=== PATIENT | female | born 1950 | race Caucasian/White ===

== ENCOUNTER → 2016-09-02 | Outpatient (CLI) | payer MEDICARE, OTHER ==
[2016-09-02 14:00] LABS: BASOPHILS % (AUTO) 0 % (0-2); EOSINOPHILS # (AUTO) 0.1 10^3uL; EOSINOPHILS % (AUTO) 1 % (0-4); LYMPHOCYTES # (AUTO) 1.5 X10^3; MEAN CORPUSCULAR HEMOGLOBIN 29.9 PG (26.0-34.0); MEAN CORPUSCULAR HGB CONC 32.6 g/dL (31.0-37.0); MEAN CORPUSCULAR VOLUME 92 FL (80-100); MEAN PLATELET VOLUME 9.1 FL (6.0-9.5); MONOCYTES # (AUTO) 1.4 X10^3; MONOCYTES % (AUTO) 9 % (3-11); NEUTROPHILS # (AUTO) 13.2 X10^3; NEUTROPHILS % (AUTO) 81 % (51-67); PLATELET COUNT 244 10^3uL (150-450)
[2016-09-02 14:32] LABS: ALBUMIN 3.7 g/dL (3.4-5.0); ANION GAP 14.7 MEQ/L (3-15); TOTAL PROTEIN 7.9 g/dL (6.4-8.5)
[2016-09-02 20:04] LABS: IRON 10 ug/dL (50-170); UNBOUND IRON CONTENT 189 ug/dl (126-382)
== END ==
LOC: LAB 13:50
PROVIDERS: ATTEND Internal Medicine Hematology & Oncology
DX: D64.9 Anemia, unspecified (principal)
CPT/HCPCS: 36415; 80053; 82728; 83540; 83550; 85025

== ENCOUNTER → 2016-09-09 | Outpatient (CLI) | payer MEDICARE, OTHER ==
[2016-09-09 09:51] LABS: MEAN CORPUSCULAR HEMOGLOBIN 29.9 PG (26.0-34.0); MEAN CORPUSCULAR HGB CONC 32.5 g/dL (31.0-37.0); MEAN PLATELET VOLUME 9.3 FL (6.0-9.5); WHITE BLOOD COUNT 8.73 10^3uL (4.0-11.0)
[2016-09-09 10:14] LABS: ANION GAP 16.3 MEQ/L (3-15)
[2016-09-09 10:15] LABS: ALBUMIN 3.5 g/dL (3.4-5.0); CALCULATED IONIZED CALCIUM 4.1 mg/dL (3.8-4.6); TOTAL PROTEIN 7.3 g/dL (6.4-8.5)
== END ==
LOC: LAB 09:13
PROVIDERS: ATTEND Urology
DX: R39.89 Other symptoms and signs involving the genitourinary system (principal); E07.9 Disorder of thyroid, unspecified
CPT/HCPCS: 36415; 80053; 84436; 84443; 85027

== ENCOUNTER 2016-09-13 07:25 | Day surgery (SDC) | payer MEDICARE, OTHER ==
[2016-09-13] VITALS (10 sets, daily range): BP systolic 115–141; BP diastolic 49–74
[~2016-09-13] VITALS: Ht 157.5 cm; Wt 97.0 kg
[~2016-09-13 07:25] MED LIST: LACTATED RINGERS 1,000 ML IV SCH; SODIUM CHLORIDE FLUSH 3 ML SYR IV PRN
[2016-09-13] MEDS ORDERED: PROPOFOL 20 ML IV ONE (08:46)
[2016-09-13] MEDS ORDERED: ALFENTANIL 500 MCG/ML (ALFENTA) 5 ML AMP IV ONE ×2 (08:46)
[2016-09-13] MEDS ORDERED: MIDAZOLAM 2 MG/2 ML (VERSED) VIAL ONE (08:47)
== END 2016-09-13 12:29 | disposition home or self-care (01) ==
LOC: ASC 07:25
PROVIDERS: ATTEND Surgery
DX: N32.1 Vesicointestinal fistula (principal); K57.30 Diverticulosis of large intestine without perforation or abscess without bleeding; G47.30 Sleep apnea, unspecified; I10 Essential (primary) hypertension; E66.9 Obesity, unspecified; Z68.39 Body mass index [BMI] 39.0-39.9, adult
CPT/HCPCS: 45380; 88305; J2250; J7120

== ENCOUNTER → 2016-10-09 | Outpatient (CLI) | payer MEDICARE, OTHER ==
[~2016-10-09] MED LIST changes: +ALEN70TA2 PO; +ALLO300T2 PO; +BUDE10.2 IH; +CALC-444 PO; +CARV12.52 PO; +CHOL10002 PO; +CHOL3000 PO; +CPR500T PO; +GLUC-113 PO; +HYDR-707 PO; -LACTATED RINGERS 1,000 ML IV SCH; +LEVO50TA6 PO; +LISI1TAB8 PO; +LOSA100T8 PO; +METR500T PO; +MULT-301 PO; +OM-31CAP9 PO; -SODIUM CHLORIDE FLUSH 3 ML SYR IV PRN
== END ==
LOC: LAB 09:55
PROVIDERS: ATTEND Surgery
DX: Z53.8 Procedure and treatment not carried out for other reasons (principal)
CPT/HCPCS: 86850; 86900; 86901

== ENCOUNTER 2016-10-10 08:11 | Inpatient (IN) | payer MEDICARE, OTHER ==
[2016-10-10] VITALS (8 sets, daily range): BP systolic 121–152; BP diastolic 44–82
[~2016-10-10] VITALS: Ht 157.5 cm; Wt 108.2 kg
[~2016-10-10 08:11] MED LIST changes: -CHOL10002 PO; +LACTATED RINGERS 1,000 ML IV SCH; -LEVO50TA6 PO; -MULT-301 PO; +SODIUM CHLORIDE FLUSH 3 ML SYR IV PRN; +ceFAZolin 2,000 MG in WATER (STERILE) FOR INJECTION 20 ML IV SCH
[2016-10-10] MEDS ORDERED: LEVO50TA6 PO (08:37)
[2016-10-10] MEDS ORDERED: ALFENTANIL 500 MCG/ML (ALFENTA) 5 ML AMP IV ONE (08:54)
[2016-10-10] MEDS ORDERED: ROCURONIUM 50 MG/5 ML (ZEMURON) VIAL IV ONE ×2 (08:54→11:20)
[2016-10-10] MEDS ORDERED: PROPOFOL 20 ML IV ONE (08:54)
[2016-10-10] MEDS ORDERED: MIDAZOLAM 2 MG/2 ML (VERSED) VIAL ONE (09:00)
[2016-10-10] MEDS ORDERED: ROPIVACAINE 1% 10 MG/ML (NAROPIN) 20 ML AMPUL ONE (09:44)
[2016-10-10] MEDS ORDERED: SUFENTANIL 50 MCG/ML ONE ×2 (09:45)
[2016-10-10] MEDS ORDERED: ePHEDrine SULFATE 50 MG/ML 1 ML AMP ONE ×2 (10:20→17:07)
[2016-10-10] MEDS ORDERED: PHENYLEPHRINE 10 MG/ML (NEO-SYNEPHRINE 1%) 1 ML VIAL ONE (10:34)
[2016-10-10 10:49] LABS: BILIRUBIN,URINE Negative (Negative); COLOR,URINE Other; GLUCOSE, URINE (UA) Negative (Negative); LEUKOCYTE ESTERASE, URINE 3+ (Negative); UROBILINOGEN,URINE 0.2 mg/dL (0.2-1.0)
[2016-10-10 11:00] LABS: CLARITY,URINE Slightly Cloudy; URINE CENTRIFUGED VOLUME 12 mL
[2016-10-10] MEDS ORDERED: METHYLENE BLUE 1% 10 MG/ML 10 ML VIAL ONE (12:46)
[2016-10-10] MEDS ORDERED: GLYCOPYRROLATE 0.2 MG/ML (ROBINUL) 1 ML VIAL ONE (16:30)
[2016-10-10] MEDS ORDERED: NEOSTIGMINE 1 MG/ML SYRINGE ONE (16:30)
--- NOTE | 2016-10-10 17:47 | Diagnostic Imaging Report ---
INDICATION: Postop. Evaluate for foreign body. COMPARISON: None available. FINDINGS AND IMPRESSION: Left-sided nephroureteral stent is in place. There are surgical alejandro along the lower abdomen. No additional radiopaque foreign body is identified to suggest retained suture material. Please note that most suture material is not radiopaque. Dictated by: Dictated on workstation # [id number]
[2016-10-10] MEDS ORDERED: ONDANSETRON 2 MG/ML (Z0FRAN) 2 ML VIAL IV PRN (17:50)
[2016-10-10] MEDS ORDERED: METOCLOPRAMIDE 10 MG/2 ML (REGLAN) VIAL IV PRN (17:50)
[2016-10-10] MEDS: 1/2 NS W/KCL 20 MEQ/L 1,000 ML IV SCH (18:50)
[2016-10-10] MEDS ORDERED: FLUTICASONE/SALMETEROL HFA 230/21 MCG (ADVAIR) COMMON CANNISTER INH SCH (21:00)
[2016-10-10] MEDS: CARVEDILOL 12.5 MG (COREG) TABLET PO SCH (21:53)
[2016-10-11] VITALS (17 sets, daily range): BP systolic 108–167; BP diastolic 38–87
[2016-10-11 04:53] LABS: BASOPHILS % (AUTO) 0 % (0-2); EOSINOPHILS % (AUTO) 0 % (0-4); LYMPHOCYTES # (AUTO) 1.1 X10^3; MEAN CORPUSCULAR HEMOGLOBIN 29.9 PG (26.0-34.0); MEAN CORPUSCULAR HGB CONC 32.3 g/dL (31.0-37.0); MEAN CORPUSCULAR VOLUME 93 FL (80-100); MEAN PLATELET VOLUME 9.5 FL (6.0-9.5); MONOCYTES # (AUTO) 1.2 X10^3; MONOCYTES % (AUTO) 4 % (3-11); NEUTROPHILS % (AUTO) 92 % (51-67); PLATELET COUNT 204 10^3uL (150-450); WHITE BLOOD COUNT 28.39 10^3uL (4.0-11.0)
[2016-10-11] MEDS: 1/2 NS W/KCL 20 MEQ/L 1,000 ML IV SCH ×2 (05:01→15:46)
[2016-10-11 05:49] LABS: ANION GAP 15.4 MEQ/L (3-15)
[2016-10-11 05:59] LABS: BAND NEUTROPHILS % 24 % (0-6); EOSINOPHILS % 0 % (0-4); LYMPHOCYTES # 0.6 #; MONOCYTES # 0.6 #; MONOCYTES % 2 % (3-11); RBC MORPH NORMAL (NORMAL); SEGMENTED NEUTROPHILS % 72 % (51-67); TOTAL CELLS COUNTED 100
[2016-10-11] MEDS ORDERED: ROPIVACAINE 1% 10 MG/ML (NAROPIN) 20 ML AMPUL ONE (07:06)
--- NOTE | 2016-10-11 09:00 | Progress Note-A/P (E) ---
Progress Note Subjective Subjective She had some pain through the night and this has improved with adjustments to the epidural catheter by anesthesia. She has no complaints this morning. She is awake and sitting up in bed with her family at the bedside. Objective VS Vital Signs Date Time Temp Pulse Resp B/P Pulse Ox O2 Delivery O2 Flow Rate FiO2 10/11/16 08:00 124 22 114/56 93 Nasal cannula 10/11/16 06:00 98.3 I&O I & O Past 24 hrs 10/11/16 06:59 Intake Total 1138 ml Output Total 270 ml Balance 868 ml Intake IV Total 1138 ml Output Urine Total 245 ml Stool Total 25 ml Current Medications Current Medications Potassium Chloride/Sodium Chloride 1,000 ml @ 50 mls/hr Q20H IV Last administered on 10/11/16 05:01; Admin Dose 50 MLS/HR; Start 10/10/16 at 17:47 Metoclopramide HCl 10 mg Q6H PRN IV; Start 10/10/16 at 17:50 Ondansetron HCl 4 mg Q6H PRN IV Last administered on 10/11/16 00:15; Admin Dose 4 MG; Start 10/10/16 at 17:50 Salmeterol Xinafoate/ Fluticasone 2 inh BID INH; Start 10/10/16 at 21:00 General Awake, alert, oriented, no distress. CV S1S2 with sinus tachyardia Lungs Clear bilaterally Abdomen Outer dressing saturated with serous drainage. This was removed, and robb withdrawn slightly. Stoma is pink with appliance intact. Extremities Mild edema to lower extremities Integumentary No unusual findings Neuro Grossly normal Labs, Most Recent- Laboratory Results Past 24 Hrs 10/10/16 10:35: Urine Bacteria 2+, Urine Bilirubin Negative, Urine Blood 3+, Urine Clarity Slightly cloudy, Urine Collection Type Catheter, Urine Color Other, Urine Glucose (UA) Negative, Urine Ketones Negative, Urine Leukocyte Esterase 3+, Urine Microscopic RBC 10-20, Urine Microscopic WBC >100, Urine Nitrite Negative , Urine Protein Negative, Urine Specific [place] <=1.005, Urine Squamous Epithelial Cells 2-5, Urine Urobilinogen 0.2, Urine pH 6.0, Volume Urine Centrifuged 12 ml 10/10/16 11:19: Hematocrit 29.80, Hemoglobin 9.1 10/11/16 04:43: Hematocrit 32.20, Hemoglobin 10.4, Absolute Band Neutrophils 6.7, Anion Gap 15.4 , BUN/Creatinine Ratio 16, Band Neutrophils % 24, Basophils # (Auto) 0.0, Basophils # (Manual) 0.0, Basophils % (Manual) 0, Basophils (%) (Auto) 0, Blood Morphology Comment Normal, Blood Urea Nitrogen 19, Calcium Level 7.6, Carbon Dioxide Level 20, Chloride Level 108, Creatinine 1.20, Differential Total Cells Counted 100, Eosinophils # 0.0, Eosinophils # (Auto) 0.0, Eosinophils % (Manual ) 0, Eosinophils (%) (Auto) 0, Estimat Glomerular Filtration Rate 54.2, Estimated GFR (Non- 44.8, Glucose Level 122, Lymphocytes # 0.6, Lymphocytes # (Auto) 1.1, Lymphocytes % (Manual) 2, Lymphocytes (%) (Auto) 4, Mean Corpuscular Hemoglobin 29.9, Mean Corpuscular Hemoglobin Concent 32.3, Mean Corpuscular Volume 93, Mean Platelet Volume 9.5, Metamyelocytes % 0, Monocytes # 0.6, Monocytes # (Auto) 1.2, Monocytes % (Manual) 2, Monocytes (%) ( Auto) 4, Neutrophils # 20.4, Neutrophils # (Auto) 26.0, Neutrophils (%) (Auto) 92, Platelet Count 204, Potassium Level 5.0, Red Blood Count 3.48, Red Cell Distribution Width 16.0, Segmented Neutrophils % 72, Sodium Level 138, White Blood Count 28.39 10/11/16 07:40: Ionized Calcium 1.02 24 Hr Result Diagram CBC BMP Last 24 Hrs 10/10/16 11:19 10/11/16 04:43 Assessment POD#1 Sigmoid colectomy, repair of colovesical fistula, and diverting ileostomy Plan Continue ICU care, and monitor vital signs. Tachycardia and elevated WBC likely secondary to cytokine response to surgery and the diseased colon. Will follow. Continue epidural and Quiñones catheter drainage. JOSELYN OLIVARES MD Oct 11, 2016 09:00
[2016-10-11] MEDS: CARVEDILOL 12.5 MG (COREG) TABLET PO SCH ×2 (09:04→17:08)
--- NOTE | 2016-10-11 10:40 | OPERATIVE REPORT ---
DATE OF OPERATION: 10/10/2016 PRE-OPERATIVE DIAGNOSIS: Colovesical fistula. POST-OPERATIVE DIAGNOSIS: Colovesical fistula. OPERATIVE PROCEDURE: Cystoscopy left stent, cystorrhaphy for fistula. SURGEON: Deven Hankins MD COMPLICATIONS: None. SPECIMENS: Bladder wall. BLOOD LOSS: Minimal. PROCEDURE: The patient was brought to the operating room and underwent general anesthesia and was placed in the lithotomy position where she was prepped in the usual fashion. 23-Setswana cystoscope was inserted into the bladder. There is no stone or tumor in the bladder. The fistula site is seen. The wire was advanced up the ureter and over this was then passed a stent. The wire was withdrawn leaving the stent in good position. The position was confirmed by fluoroscopy. A Quiñones catheter was placed. The case was turned over to Dr. Cornell for his portion. The colon was resected and the fistula was uncovered. The bladder was opened to identify the contralateral ureteral orifice and the stent. The bladder was then closed with running segments of Vicryl after excision of the fistulous wall. Irrigation of the bladder was without substantial clots and there was an acceptable amount of leakage. The Quiñones catheter was left indwelling and the patient was turned back over to Dr. Cornell for reanastomosis of the colon and for closure.
--- NOTE | 2016-10-11 11:54 | OPERATIVE REPORT ---
DATE OF OPERATION: 10/10/2016 PRE-OPERATIVE DIAGNOSIS: Colovesical fistula. POST-OPERATIVE DIAGNOSIS: Colovesical fistula. OPERATIVE PROCEDURE: 1. Sigmoid colectomy with colorectal anastomosis. 2. Repair of colovesical fistula. 3. Diverting loop ileostomy. 4. Mobilization of splenic flexure. 5. Incidental appendectomy. SURGEON: David Cornell M.D. FRANKFURTER INSPECTOR: Joe France M.D., Deven Hankins M.D., Kim Cheung. ANESTHESIA: General endotracheal anesthetic. INDICATIONS: This patient is a 65-year-old referred by Dr. Hankins with recurrent urinary tract infections and cystoscopic findings consistent with a colovesical fistula. Colonoscopy revealed inflammatory changes in the sigmoid colon around 20-25 cm, consistent with the fistula opening. She presents today for repair of this fistula, section of the involved colon, and anastomosis if feasible. DESCRIPTION OF PROCEDURE: The patient was informed of the risks and benefits and agreed to proceed. She was taken to the operating room and placed supine on a standard operating table. She was administered preoperative IV antibiotics and then general endotracheal anesthetic. When properly anesthetized she was placed in the dorsal lithotomy position and Dr. Hankins performed a cystoscopy, where he placed a left ureteral stent and inserted a Quiñones catheter to drainage. Once this was accomplished her abdomen was prepped and draped in standard sterile fashion. An infraumbilical midline laparotomy incision was made extending from the pubic symphysis up to the umbilicus, and eventually taken to the right of the umbilicus and extended several centimeters superiorly. Cautery was used to open the midline fascia carefully and the Bookwalter retractor was attached to the bed, and used for retraction throughout the case. Palpation of the distal colon revealed induration and edema in the area where the colon came in contact with the bladder. The proximal colon was normal to palpation as was the liver. The sigmoid colon was densely adherent to the bladder posteriorly, as well as the right side of the pelvis, and the mesorectum and mesocolon was very edematous as well. A combination of sharp and blunt dissection were used to separate the colon from the bladder and this resulted in opening of the fistula, with exposed colon wall as well as a defect in the peritoneum overlying the bladder. On the right side, sharp dissection with a 10-blade scalpel was used to separate the colon from the small bowel, which consisted of the terminal ileum. This resulted in a deep serosal tear that was over-sewn with interrupted 3-0 Vicryl Lembert sutures. The cecum was seen in the right lower quadrant with the appendix densely adherent to the colon. I elected to resect the appendix rather than try to separate it from the colon to which it was densely adherent. It did not appear that she had appendicitis. The appendix was clamped proximally and distally and divided between clamps. It was then tied off with 2 separate 2-0 Vicryl ties. The dissection was carried lateral to the appendix which was attached to the colon and then the colon was from its attachments to the right side of the pelvis in its indurated portion using the 10-blade scalpel as well as the Metzenbaum scissors. This allowed access into the normal plane distal to the diseased colon. We selected a point of transection in the sigmoid colon, several centimeters proximal to the indurated portion, and divided the mesocolic vessel at that level between clamps, using 3-0 and 2-0 Vicryl ties to secure these vessels. The colon was transected with a TACOS 75 stapler. The colon was then retracted anteriorly through the rest of the case until it was removed. The mesocolon was divided between clamps, and in some places because there was so much induration we actually had to cut through it and then over-sew the bleeders with 2-0 or 3-0 Vicryl figure of eight sutures. This provided hemostasis there. The sacral promontory was reached with our dissection and once we entered the posterior space behind the rectum the inflammation was no longer such a problem, and normal planes were able to be seen. We continued to divide the mesorectum between clamps and use 2-0 and 3-0 Vicryl ties as well as sutures to secure these vessels and to stop any bleeding. Once we got past the indurated portion of the mesorectum this was much easier. We selected a point of transection of the rectum several centimeters beyond the diseased portion and placed a clamp across. It was too thick to apply a TA stapler, though I did try. Once the rectum was clamped it was divided with a 10-blade scalpel on a 90 degree handle and the specimen was removed. We irrigated the pelvis and aspirated the contents. Dr. Hankins then came in to repair the bladder, which he performed by extending the fistula opening to identify the normal bladder mucosa. Once this was repaired, we turned our attention to the anastomosis. The descending colon and splenic flexure of the colon were mobilized carefully with sharp dissection using the Metzenbaum scissors to allow enough length for the colon to reach down to the rectal stump. We contemplated a stapled anastomosis but settled on a single layer hand sewn anastomosis due to the condition of the posterior rectal wall and the effects of the inflammation on the mesorectum, which did not appear to affect the blood supply but made it difficult to identify where the serosa was. A single layer anastomosis was created with 2-0 Chromic. The colon was secured with a bowel clamp through that process and the staple line on the colon had been removed with electrocautery prior to creation of the anastomosis. The posterior layer was performed in simple running fashion utilizing locked sutures for most of them, and the anterior layer was closed with [place] sutures. There was a leak on the right lateral side after the clamp was removed, and this was over-sewn with 2 separate 3-0 silk sutures. Because of concern about the potential for a leak in the inflammatory field that we were dealing with, we decided to created a diverting ileostomy. We irrigated the pelvis and aspirated the contents. There was no large pocket of pus noted during the procedure but there was a small amount of pus seen as the colon was from the pelvis and from the bladder earlier in the procedure. We also found some enteric particles or vegetable matter that was removed from the pelvis earlier in the procedure. This had been completely cleared at the end of the case. The anastomosis was pink and appeared viable. Lap sponges were removed. A tongue of omentum was laid between the colon and the bladder and sutured to the peritoneum above the bladder to keep it in place. We then created a skin defect in the right lower quadrant for the ileostomy, bluntly dissected the tunnel, and I made a cruciate incision in the anterior recuts sheath. Blunt dissection was then used to enter the peritoneal cavity. The terminal ileum was brought up just proximal to the area where the serosal tear had been repaired, and this portion of the ileum was used for our ileostomy. This was encircled with umbilical tape and the umbilical tape was pulled up through the fascial defect and into the skin incision exposing the loop of ileum above the skin. The midline fascia was then closed with running #1 PDS and the skin was widely reapproximated with alejandro. Telfa robb were placed between the alejandro and the midline incision was covered with several 4x4s and Tegaderm. The ileostomy was then matured by opening the anterior wall of the distal aspect of the loop and folding it inferiorly to allow the proximal portion of the stoma to drain. 3-0 Vicryl was used to mature the stoma by using mucosa to serosa to dermal bites. The superior aspect of the stoma was matured by sewing the mucosa to the skin and an appliance was placed. A KUB afterward showed no evidence of any lap sponges or any foreign body in the abdomen. Estimated blood loss was approximately 800 mL and the patient received 7100 mL of crystalloid during the procedure. She went to recovery in stable condition and there were no complications.
[2016-10-11] MEDS ORDERED: NS FLUSH 3 ML PRN IV (12:20)
[2016-10-11] MEDS ORDERED: NS FLUSH 10 ML PRN IV (12:20)
[2016-10-11] MEDS: CALCIUM GLUCONATE 1,000 MG in D5W (IVPB) 50 ML IV SCH ×2 (12:35→18:21)
[2016-10-11] MEDS ORDERED: MULT-301 PO (12:54)
[2016-10-11] MEDS ORDERED: CHOL10002 PO (12:54)
[2016-10-11] MEDS ORDERED: METOCLOPRAMIDE 10 MG/2 ML (REGLAN) VIAL IV PRN (12:55)
[2016-10-11] MEDS ORDERED: ONDANSETRON 2 MG/ML (Z0FRAN) 2 ML VIAL IV PRN (12:55)
[2016-10-11] MEDS: FLUTICASONE/SALMETEROL HFA 230/21 MCG (ADVAIR) COMMON CANNISTER INH SCH (20:19)
[2016-10-12] VITALS: BP 122/47
[2016-10-12] MEDS: 1/2 NS W/KCL 20 MEQ/L 1,000 ML IV SCH (02:08)
[2016-10-12 04:00] VITALS: BP 140/54
[2016-10-12 05:42] LABS: MEAN CORPUSCULAR HEMOGLOBIN 29.6 PG (26.0-34.0); MEAN CORPUSCULAR VOLUME 94 FL (80-100); MEAN PLATELET VOLUME 9.4 FL (6.0-9.5); PLATELET COUNT 153 10^3uL (150-450); WHITE BLOOD COUNT 20.19 10^3uL (4.0-11.0)
[2016-10-12 06:13] LABS: MEAN CORPUSCULAR HGB CONC 31.5 g/dL (31.0-37.0)
[2016-10-12 06:16] LABS: ANISOCYTOSIS SLIGHT; BAND NEUTROPHILS % 0 % (0-6); EOSINOPHILS % 1 % (0-4); HYPOCHROMASIA SLIGHT; MONOCYTES % 5 % (3-11); RBC MORPH SEE REFERENCE (NORMAL); SEGMENTED NEUTROPHILS % 89 % (51-67); TOTAL CELLS COUNTED 100
[2016-10-12] MEDS ORDERED: SUFENTANIL 50 MCG/ML ONE ×2 (07:16)
[2016-10-12] MEDS ORDERED: ROPIVACAINE 1% 10 MG/ML (NAROPIN) 20 ML AMPUL ONE (07:16)
[2016-10-12 07:30] VITALS: BP 115/47
[2016-10-12] MEDS: FLUTICASONE/SALMETEROL HFA 230/21 MCG (ADVAIR) COMMON CANNISTER INH SCH ×2 (07:32→20:11)
[2016-10-12] MEDS: CARVEDILOL 12.5 MG (COREG) TABLET PO SCH ×2 (08:38→18:32)
[2016-10-12] MEDS ORDERED: NS FLUSH 3 ML DAILY IV SCH (09:00)
--- NOTE | 2016-10-12 11:47 | Progress Note-A/P (E) ---
Progress Note Subjective Subjective She is doing well. Pain is controlled fairly well with epidural; she has been up walking in the finch and tolerated that. Urine output has been 150cc this morning since 0600. Hemoglobin is down to 8.0 and creatinine is up to 1.7. Bryan is here this morning to change stoma appliance, which had leaked a bit. Objective VS Vital Signs Date Time Temp Pulse Resp B/P Pulse Ox O2 Delivery O2 Flow Rate FiO2 10/12/16 09:15 102 10/12/16 07:30 98.8 20 115/47 99 Nasal cannula 10/11/16 20:13 2.00 I&O I & O Past 24 hrs 10/12/16 07:00 Intake Total 3581 ml Output Total 475 ml Balance 3106 ml Intake Oral 25 ml IV Total 3556 ml Output Urine Total 475 ml Current Medications Current Medications Sodium Chloride 3 ml DAILY IV; Start 10/12/16 at 09:00 Sodium Chloride 3 ml UD PRN IV; Start 10/11/16 at 12:20 Sodium Chloride 10 ml 10 ml UD PRN IV Last administered on 10/12/16 09:24; Admin Dose 10 ML; Start 10/11/16 at 12:20 Potassium Chloride/Sodium Chloride 1,000 ml @ 100 mls/hr Q10H IV Last administered on 10/12/16 02:08; Admin Dose 100 MLS/HR; Start 10/11/16 at 12:55 Metoclopramide HCl 10 mg Q6H PRN IV; Start 10/11/16 at 12:55 Ondansetron HCl 4 mg Q6H PRN IV; Start 10/11/16 at 12:55 Salmeterol Xinafoate/ Fluticasone 2 inh BID INH Last administered on 10/12/16 07 :32; Admin Dose 2 INH; Start 10/11/16 at 21:00 General Awake, alert, oriented, no distress. CV S1S2 with sinus tachyardia Lungs Clear bilaterally Abdomen Outer dressing saturated with serous drainage. This was removed, and robb withdrawn slightly. Stoma is pink with appliance intact. Extremities Mild edema to lower extremities Integumentary No unusual findings Neuro Grossly normal Labs, Most Recent- Laboratory Results Past 24 Hrs 10/12/16 05:05: Absolute Band Neutrophils 0.0, Anion Gap 13.0, Anisocytosis Slight, BUN/ Creatinine Ratio 17, Band Neutrophils % 0, Basophils # (Auto) , Basophils # ( Manual) 0.0, Basophils % (Manual) 0, Basophils (%) (Auto) , Blood Morphology Comment See reference, Blood Urea Nitrogen 29, Calcium Level 7.3, Carbon Dioxide Level 21, Chloride Level 107, Creatinine 1.75, Differential Total Cells Counted 100, Eosinophils # 0.2, Eosinophils # (Auto) , Eosinophils % (Manual) 1 , Eosinophils (%) (Auto) , Estimat Glomerular Filtration Rate 35.1, Estimated GFR (Non- 29.0, Glucose Level 99, Hematocrit 25.40, Hemoglobin 8.0, Hypochromasia Slight, Lymphocytes # 1.0, Lymphocytes # (Auto) , Lymphocytes % (Manual) 5, Lymphocytes (%) (Auto) , Mean Corpuscular Hemoglobin 29.6, Mean Corpuscular Hemoglobin Concent 31.5, Mean Corpuscular Volume 94, Mean Platelet Volume 9.4, Metamyelocytes % 0, Monocytes # 1.0, Monocytes # (Auto ) , Monocytes % (Manual) 5, Monocytes (%) (Auto) , Neutrophils # 18.0, Neutrophils # (Auto) , Neutrophils (%) (Auto) , Platelet Count 153, Potassium Level 5.1, Red Blood Count 2.70, Red Cell Distribution Width 15.6, Segmented Neutrophils % 89, Sodium Level 136, White Blood Count 20.19 24 Hr Result Diagram CBC BMP Last 24 Hrs 10/12/16 05:05 Assessment POD#2 Sigmoid colectomy, repair of colovesical fistula, and diverting ileostomy Plan Transfer to floor. Will recheck hgb and BMP this afternoon. Start clears, no trays. Continue epidural. JOSELYN OLIVARES MD Oct 12, 2016 11:47
[2016-10-12] MEDS ORDERED: 1/2 NS W/KCL 20 MEQ/L 1,000 ML IV SCH (11:50)
[2016-10-12 12:02] VITALS: BP 111/52
[2016-10-12] MEDS ORDERED: SODIUM CHLORIDE FLUSH 10 ML SYR IV PRN (12:20)
[2016-10-12] MEDS ORDERED: SODIUM CHLORIDE FLUSH 3 ML SYR IV PRN (12:20)
[2016-10-12 14:13] VITALS: BP 111/82
[2016-10-12 15:19] LABS: ANION GAP 13.2 MEQ/L (3-15)
[2016-10-12] MEDS ORDERED: LACTATED RINGERS 1,000 ML IV SCH ×3 (17:00→19:05)
[2016-10-12] MEDS: ONDANSETRON 2 MG/ML (Z0FRAN) 2 ML VIAL IV PRN (17:04)
[2016-10-12] MEDS: LACTATED RINGERS 1,000 ML IV SCH ×2 (17:04→19:37)
[2016-10-12 20:00] VITALS: BP 116/48
[2016-10-13] VITALS: BP 114/63
[2016-10-13 03:26] VITALS: BP 126/72
[2016-10-13] MEDS: LACTATED RINGERS 1,000 ML IV SCH ×2 (05:04→18:50)
[2016-10-13 06:06] LABS: MEAN CORPUSCULAR HEMOGLOBIN 29.8 PG (26.0-34.0); MEAN CORPUSCULAR VOLUME 95 FL (80-100); MEAN PLATELET VOLUME 9.7 FL (6.0-9.5); PLATELET COUNT 198 10^3uL (150-450); WHITE BLOOD COUNT 20.43 10^3uL (4.0-11.0)
[2016-10-13 06:12] LABS: MEAN CORPUSCULAR HGB CONC 31.5 g/dL (31.0-37.0)
[2016-10-13 06:16] LABS: ANION GAP 14.7 MEQ/L (3-15)
[2016-10-13 06:19] LABS: ANISOCYTOSIS MODERATE; BAND NEUTROPHILS % 0 % (0-6); EOSINOPHILS % 0 % (0-4); HYPOCHROMASIA SLIGHT; LYMPHOCYTES # 0.6 #; MONOCYTES # 0.8 #; MONOCYTES % 4 % (3-11); RBC MORPH SEE REFERENCE (NORMAL); SEGMENTED NEUTROPHILS % 93 % (51-67); TOTAL CELLS COUNTED 100
[2016-10-13] MEDS: FLUTICASONE/SALMETEROL HFA 230/21 MCG (ADVAIR) COMMON CANNISTER INH SCH ×2 (07:20→19:29)
[2016-10-13 07:25] VITALS: BP 168/72
[2016-10-13] MEDS: METOCLOPRAMIDE 10 MG/2 ML (REGLAN) VIAL IV PRN ×3 (07:38→21:04)
--- NOTE | 2016-10-13 08:27 | Progress Note-A/P (E) ---
Progress Note Subjective Subjective She is standing at bedside, about to go for a walk with aide. Pain mostly controlled, just feels a bit nauseated with oral intake. Urine output has picked up. Urine is yellow, no gross blood. Objective VS Vital Signs Date Time Temp Pulse Resp B/P Pulse Ox O2 Delivery O2 Flow Rate FiO2 10/13/16 07:25 9733.8 93 18 168/72 96 Room air 10/11/16 20:13 2.00 I&O I & O Past 24 hrs 10/13/16 07:00 Intake Total 3697 ml Output Total 905 ml Balance 2792 ml Intake Oral 495 ml IV Total 3202 ml Output Urine Total 890 ml Other 15 ml Current Medications Current Medications Salmeterol Xinafoate/ Fluticasone 2 inh BID INH Last administered on 10/13/16 07 :20; Admin Dose 2 INH; Start 10/12/16 at 21:00 Metoclopramide HCl 10 mg Q6H PRN IV Last administered on 10/13/16 07:38; Admin Dose 10 MG; Start 10/12/16 at 12:55 Ondansetron HCl 4 mg Q6H PRN IV Last administered on 10/12/16 17:04; Admin Dose 4 MG; Start 10/12/16 at 12:55 Sodium Chloride 10 ml UD PRN IV; Start 10/12/16 at 12:20 Sodium Chloride 3 ml UD PRN IV; Start 10/12/16 at 12:20 Sodium Chloride 3 ml 3 ml DAILY IV; Start 10/13/16 at 09:00 Lactated Ringer's 1,000 ml @ 100 mls/hr Q10H IV Last administered on 10/13/16 05:04; Admin Dose 100 MLS/HR; Start 10/12/16 at 16:45 General Awake, alert, oriented, no distress. CV S1S2 RRR Lungs Clear bilaterally Abdomen Outer dressing saturated with serous drainage. This was left intact but will be changed when she gets back from walking. Stoma is pink with appliance intact, small amount of bilious drainage in bag. Extremities Mild edema to lower extremities Integumentary No unusual findings Neuro Grossly normal Labs, Most Recent- Laboratory Results Past 24 Hrs 10/12/16 14:52: Anion Gap 13.2, BUN/Creatinine Ratio 18, Blood Urea Nitrogen 30, Calcium Level 7.6, Carbon Dioxide Level 24, Chloride Level 104, Creatinine 1.65, Estimat Glomerular Filtration Rate 37.5, Estimated GFR (Non- 31.0, Glucose Level 100, Hemoglobin 8.5, Potassium Level 5.5, Sodium Level 136 10/13/16 05:00: Anion Gap 14.7, BUN/Creatinine Ratio 18, Blood Urea Nitrogen 27, Calcium Level 7.6, Carbon Dioxide Level 23, Chloride Level 104, Creatinine 1.51, Estimat Glomerular Filtration Rate 41.6, Estimated GFR (Non- 34.4, Glucose Level 92, Hemoglobin 8.2, Potassium Level 5.2, Sodium Level 136, Absolute Band Neutrophils 0.0, Anisocytosis Moderate, Band Neutrophils % 0, Basophils # (Auto) , Basophils # (Manual) 0.0, Basophils % (Manual) 0, Basophils (%) (Auto) , Blood Morphology Comment See reference, Differential Total Cells Counted 100, Eosinophils # 0.0, Eosinophils # (Auto) , Eosinophils % (Manual) 0, Eosinophils (%) (Auto) , Hematocrit 26.00, Hypochromasia Slight, Lymphocytes # 0.6, Lymphocytes # (Auto) , Lymphocytes % (Manual) 3, Lymphocytes (%) (Auto) , Mean Corpuscular Hemoglobin 29.8, Mean Corpuscular Hemoglobin Concent 31.5, Mean Corpuscular Volume 95, Mean Platelet Volume 9.7, Metamyelocytes % 0, Monocytes # 0.8, Monocytes # (Auto) , Monocytes % (Manual) 4 , Monocytes (%) (Auto) , Neutrophils # 19.0, Neutrophils # (Auto) , Neutrophils (%) (Auto) , Platelet Count 198, Red Blood Count 2.75, Red Cell Distribution Width 15.0, Segmented Neutrophils % 93, White Blood Count 20.43 24 Hr Result Diagram CBC BMP Last 24 Hrs 10/12/16 14:52 10/13/16 05:00 Assessment POD#3 Sigmoid colectomy, repair of colovesical fistula, and diverting ileostomy Mild hypocalcemia Post-op anemia Plan Continue current care, will replace calcium and follow progress. Epidural likely out today or tomorrow. JOSELYN OLIVARES MD Oct 13, 2016 08:27
[2016-10-13] MEDS: SODIUM CHLORIDE FLUSH 3 ML SYR IV SCH (08:59)
[2016-10-13] MEDS: CALCIUM GLUCONATE 1,000 MG in D5W (IVPB) 50 ML IV SCH ×2 (09:19→14:51)
[2016-10-13] MEDS: CARVEDILOL 12.5 MG (COREG) TABLET PO SCH ×2 (09:19→18:20)
[2016-10-13 11:14] VITALS: BP 126/57
[2016-10-13] MEDS: ONDANSETRON 2 MG/ML (Z0FRAN) 2 ML VIAL IV PRN ×2 (11:24→18:20)
[2016-10-13] MEDS ORDERED: NALBUPHINE 10 MG/ML (NUBAIN) 1 ML AMP IV PRN ×2 (14:55)
[2016-10-13] MEDS ORDERED: diphenhydrAMINE 50 MG/ML INJ (BENADRYL) IM/IV PRN (14:55)
[2016-10-13] MEDS ORDERED: NALOXONE 0.4 MG/ML (NARCAN) 1 ML VIAL IV PRN (14:55)
[2016-10-13] MEDS ORDERED: diphenhydrAMINE 25 MG (BENADRYL) TABLET PO PRN (14:55)
[2016-10-13 15:09] VITALS: BP 148/67
[2016-10-13 20:00] VITALS: BP 153/72
[2016-10-14] VITALS (12 sets, daily range): BP systolic 152–181; BP diastolic 62–90
[2016-10-14] MEDS: ONDANSETRON 2 MG/ML (Z0FRAN) 2 ML VIAL IV PRN ×4 (01:27→21:56)
[2016-10-14] MEDS: METOCLOPRAMIDE 10 MG/2 ML (REGLAN) VIAL IV PRN ×3 (04:23→17:27)
[2016-10-14 06:08] LABS: MEAN CORPUSCULAR HGB CONC 31.8 g/dL (31.0-37.0); MEAN CORPUSCULAR VOLUME 94 FL (80-100); MEAN PLATELET VOLUME 9.2 FL (6.0-9.5); PLATELET COUNT 256 10^3uL (150-450); WHITE BLOOD COUNT 18.02 10^3uL (4.0-11.0)
[2016-10-14 06:18] LABS: BAND NEUTROPHILS % 0 % (0-6); EOSINOPHILS % 0 % (0-4); LYMPHOCYTES # 1.1 #; MONOCYTES # 0.2 #; MONOCYTES % 1 % (3-11); SEGMENTED NEUTROPHILS % 93 % (51-67); TOTAL CELLS COUNTED 100
[2016-10-14 06:19] LABS: ANISOCYTOSIS SLIGHT; HYPOCHROMASIA SLIGHT; RBC MORPH SEE REFERENCE (NORMAL)
[2016-10-14 06:30] LABS: ANION GAP 18.8 MEQ/L (3-15)
[2016-10-14] MEDS ORDERED: morphine PCA 30 MG/30 ML VIAL IV PRN ×2 (07:10→07:20)
[2016-10-14] MEDS: FLUTICASONE/SALMETEROL HFA 230/21 MCG (ADVAIR) COMMON CANNISTER INH SCH ×2 (07:46→20:10)
[2016-10-14] MEDS: LACTATED RINGERS 1,000 ML IV SCH ×2 (07:53→21:56)
[2016-10-14] MEDS: CARVEDILOL 12.5 MG (COREG) TABLET PO SCH ×2 (08:43→17:27)
[2016-10-14] MEDS: GABAPENTIN 100 MG (NEURONTIN) CAP PO SCH ×2 (08:43→21:45)
--- NOTE | 2016-10-14 08:45 | Progress Note-A/P (E) ---
Progress Note Subjective Subjective She has had some emesis this morning. Epidural was removed earlier and pain is controlled. No other new issues. Objective VS Vital Signs Date Time Temp Pulse Resp B/P Pulse Ox O2 Delivery O2 Flow Rate FiO2 10/14/16 08:04 103 20 93 Room air 10/14/16 07:41 97.6 155/76 10/14/16 00:00 0.00 I&O I & O Past 24 hrs 10/14/16 07:00 Intake Total 1810 ml Output Total 1155 ml Balance 655 ml Intake Oral 50 ml IV Total 1760 ml Output Urine Total 625 ml Stool Total 30 ml Emesis 500 ml Current Medications Current Medications Salmeterol Xinafoate/ Fluticasone 2 inh BID INH Last administered on 10/14/16 07 :46; Admin Dose 2 INH; Start 10/12/16 at 21:00 Metoclopramide HCl 10 mg Q6H PRN IV Last administered on 10/14/16 04:23; Admin Dose 10 MG; Start 10/12/16 at 12:55 Ondansetron HCl 4 mg Q6H PRN IV Last administered on 10/14/16 07:28; Admin Dose 4 MG; Start 10/12/16 at 12:55 Sodium Chloride 10 ml UD PRN IV; Start 10/12/16 at 12:20 Sodium Chloride 3 ml UD PRN IV; Start 10/12/16 at 12:20 Sodium Chloride 3 ml 3 ml DAILY IV; Start 10/13/16 at 09:00 Lactated Ringer's 1,000 ml @ 70 mls/hr [id number] IV Last administered on 07:53; Admin Dose 70 MLS/HR; Start 10/12/16 at 16:45 Diphenhydramine HCl 50 mg Q3H PRN PO; Start 10/13/16 at 14:55 Diphenhydramine HCl 25-50MG IV or 50MG IM Q3H PRN IM/IV; Start 10/13/16 at 14:55 Nalbuphine HCl 5 mg Q3H PRN IV; Start 10/13/16 at 14:55 Morphine Sulfate 1 vial PRN PRN IV Last administered on 10/14/16 07:56; Admin Dose 1 VIAL; Start 10/14/16 at 07:20 Tramadol HCl 100 mg Q4H PRN PO; Start 10/14/16 at 07:20 Gabapentin 200 mg BID PO; Start 10/14/16 at 09:00 General Awake, alert, oriented, no distress. CV S1S2 RRR Lungs Clear bilaterally at apices Abdomen Dressing saturated with serous drainage; robb removed and dressing replaced. No pus, no enteric drainage, no erythema. Stoma intact, little drainage. Extremities Mild edema to lower extremities Integumentary No unusual findings Neuro Grossly normal Labs, Most Recent- Laboratory Results Past 24 Hrs 10/14/16 05:45: Absolute Band Neutrophils 0.0, Anion Gap 18.8, Anisocytosis Slight, BUN/ Creatinine Ratio 24, Band Neutrophils % 0, Basophils # (Auto) , Basophils # ( Manual) 0.0, Basophils % (Manual) 0, Basophils (%) (Auto) , Blood Morphology Comment See reference, Blood Urea Nitrogen 31, Calcium Level 8.3, Carbon Dioxide Level 21, Chloride Level 102, Creatinine 1.29, Differential Total Cells Counted 100, Eosinophils # 0.0, Eosinophils # (Auto) , Eosinophils % (Manual) 0 , Eosinophils (%) (Auto) , Estimat Glomerular Filtration Rate 49.9, Estimated GFR (Non- 41.2, Glucose Level 107, Hematocrit 26.40, Hemoglobin 8.4, Hypochromasia Slight, Lymphocytes # 1.1, Lymphocytes # (Auto) , Lymphocytes % (Manual) 6, Lymphocytes (%) (Auto) , Mean Corpuscular Hemoglobin 30.0, Mean Corpuscular Hemoglobin Concent 31.8, Mean Corpuscular Volume 94, Mean Platelet Volume 9.2, Metamyelocytes % 0, Monocytes # 0.2, Monocytes # (Auto ) , Monocytes % (Manual) 1, Monocytes (%) (Auto) , Neutrophils # 16.8, Neutrophils # (Auto) , Neutrophils (%) (Auto) , Platelet Count 256, Potassium Level 5.1, Red Blood Count 2.80, Red Cell Distribution Width 14.8, Segmented Neutrophils % 93, Sodium Level 137, White Blood Count 18.02 24 Hr Result Diagram CBC BMP Last 24 Hrs 10/14/16 05:45 Assessment POD#4 Sigmoid colectomy, repair of colovesical fistula, and diverting ileostomy Post-op anemia, stable 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 Continue current care. JOSELYN OLIVARES MD Oct 14, 2016 08:45
[2016-10-14] MEDS: SODIUM CHLORIDE FLUSH 3 ML SYR IV SCH (08:49)
[2016-10-14] MEDS ORDERED: GABAPENTIN 100 MG (NEURONTIN) CAP PO SCH (09:00)
--- NOTE | 2016-10-14 15:38 | Progress Note-A/P (E) ---
Progress Note Subjective: no c/o, tired Objective: I>>Os Vital Signs Date Time Temp Pulse Resp B/P Pulse Ox O2 Delivery O2 Flow Rate FiO2 10/14/16 14:06 97 18 94 Nasal cannula 10/14/16 12:13 97.7 167/70 10/14/16 00:00 0.00 I & O Past 24 hrs 10/14/16 06:59 Intake Total 1810 ml Output Total 1155 ml Balance 655 ml Intake Oral 50 ml IV Total 1760 ml Output Urine Total 625 ml Stool Total 30 ml Emesis 500 ml urine clear Past 24 hour Lab Results 10/14/16 05:45 Laboratory Results Past 24 Hrs 10/14/16 05:45: Absolute Band Neutrophils 0.0, Anion Gap 18.8, Anisocytosis Slight, BUN/ Creatinine Ratio 24, Band Neutrophils % 0, Basophils # (Auto) , Basophils # ( Manual) 0.0, Basophils % (Manual) 0, Basophils (%) (Auto) , Blood Morphology Comment See reference, Blood Urea Nitrogen 31, Calcium Level 8.3, Carbon Dioxide Level 21, Chloride Level 102, Creatinine 1.29, Differential Total Cells Counted 100, Eosinophils # 0.0, Eosinophils # (Auto) , Eosinophils % (Manual) 0 , Eosinophils (%) (Auto) , Estimat Glomerular Filtration Rate 49.9, Estimated GFR (Non- 41.2, Glucose Level 107, Hematocrit 26.40, Hemoglobin 8.4, Hypochromasia Slight, Lymphocytes # 1.1, Lymphocytes # (Auto) , Lymphocytes % (Manual) 6, Lymphocytes (%) (Auto) , Mean Corpuscular Hemoglobin 30.0, Mean Corpuscular Hemoglobin Concent 31.8, Mean Corpuscular Volume 94, Mean Platelet Volume 9.2, Metamyelocytes % 0, Monocytes # 0.2, Monocytes # (Auto ) , Monocytes % (Manual) 1, Monocytes (%) (Auto) , Neutrophils # 16.8, Neutrophils # (Auto) , Neutrophils (%) (Auto) , Platelet Count 256, Potassium Level 5.1, Red Blood Count 2.80, Red Cell Distribution Width 14.8, Segmented Neutrophils % 93, Sodium Level 137, White Blood Count 18.02 Assessment/Plan s/p colovesical fistula repair Diet- Code Status- DVT prophylaxis- Disposition- Deven Hankins MD Oct 14, 2016 15:38
[2016-10-14] MEDS: LOSARTAN 100 MG (COZAAR) TABLET PO SCH (17:27)
[2016-10-14] MEDS ORDERED: FUROSEMIDE 20 MG/2 ML (LASIX) VIAL ONE (21:37)
[2016-10-14] MEDS ORDERED: FUROSEMIDE 20 MG/2 ML (LASIX) VIAL IV ONE (21:45)
[2016-10-15] MEDS: METOCLOPRAMIDE 10 MG/2 ML (REGLAN) VIAL IV PRN ×2 (00:23→12:49)
[2016-10-15 04:06] VITALS: BP 188/76
[2016-10-15] MEDS ORDERED: FUROSEMIDE 20 MG/2 ML (LASIX) VIAL IV ONE ×2 (04:30→15:45)
[2016-10-15] MEDS: ONDANSETRON 2 MG/ML (Z0FRAN) 2 ML VIAL IV PRN ×2 (05:48→14:38)
[2016-10-15 06:52] VITALS: BP 142/78
[2016-10-15] MEDS: FLUTICASONE/SALMETEROL HFA 230/21 MCG (ADVAIR) COMMON CANNISTER INH SCH ×2 (07:47→20:31)
[2016-10-15 07:58] VITALS: BP 177/84
--- NOTE | 2016-10-15 08:14 | Progress Note-A/P (E) ---
Progress Note Subjective Subjective She has had lower spO2 since last night, and was given two doses of Lasix. She had been a bit short of breath but feels that has improved. Nausea last night but not this morning. Objective VS Vital Signs Date Time Temp Pulse Resp B/P Pulse Ox O2 Delivery O2 Flow Rate FiO2 10/15/16 07:58 97.0 110 20 177/84 92 Nasal cannula 10/14/16 00:00 0.00 I&O I & O Past 24 hrs 10/15/16 07:00 Intake Total 2124 ml Output Total 2150 ml Balance -26 ml Intake Oral 437 ml IV Total 1687 ml Output Urine Total 1850 ml Stool Total 0 ml Emesis 300 ml Current Medications Current Medications Sodium Chloride 3 ml DAILY IV; Start 10/13/16 at 09:00 Diphenhydramine HCl 50 mg Q3H PRN PO; Start 10/13/16 at 14:55 Diphenhydramine HCl 25-50MG IV or 50MG IM Q3H PRN IM/IV; Start 10/13/16 at 14:55 Nalbuphine HCl 5 mg Q3H PRN IV; Start 10/13/16 at 14:55 Morphine Sulfate 1 vial PRN PRN IV Last administered on 10/14/16 07:56; Admin Dose 1 VIAL; Start 10/14/16 at 07:20 Tramadol HCl 100 mg Q4H PRN PO; Start 10/14/16 at 07:20 Gabapentin 200 mg BID PO Last administered on 10/14/16 21:45; Admin Dose 200 MG ; Start 10/14/16 at 09:00 Losartan Potassium 100 mg DAILY PO Last administered on 10/14/16 17:27; Admin Dose 100 MG; Start 10/14/16 at 16:50 General Awake, alert, oriented, no distress. CV S1S2 RRR Lungs Diminished at bases with scattered crackles bilaterally Abdomen Dressing dry; incision clean with no erythema. Stoma intact with dry faceplate. 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 Continue current care. Losartan restarted. JOSELYN OLIVARES MD Oct 15, 2016 08:14
[2016-10-15] MEDS: LOSARTAN 100 MG (COZAAR) TABLET PO SCH (09:25)
[2016-10-15] MEDS: CARVEDILOL 12.5 MG (COREG) TABLET PO SCH ×2 (09:25→18:30)
[2016-10-15] MEDS: SODIUM CHLORIDE FLUSH 3 ML SYR IV SCH (09:26)
[2016-10-15] MEDS: GABAPENTIN 100 MG (NEURONTIN) CAP PO SCH (09:26)
[2016-10-15 11:39] VITALS: BP 166/68
[2016-10-15] MEDS: LACTATED RINGERS 1,000 ML IV SCH ×3 (13:10→22:25)
[2016-10-15 15:35] VITALS: BP 173/73
[2016-10-15 18:06] LABS: MEAN CORPUSCULAR HEMOGLOBIN 29.8 PG (26.0-34.0); MEAN CORPUSCULAR HGB CONC 31.8 g/dL (31.0-37.0); MEAN CORPUSCULAR VOLUME 94 FL (80-100); MEAN PLATELET VOLUME 8.7 FL (6.0-9.5); PLATELET COUNT 302 10^3uL (150-450); WHITE BLOOD COUNT 17.64 10^3uL (4.0-11.0)
[2016-10-15 18:19] LABS: BAND NEUTROPHILS % 19 % (0-6); EOSINOPHILS % 0 % (0-4); LYMPHOCYTES # 0.9 #; MONOCYTES # 0.5 #; MONOCYTES % 3 % (3-11); SEGMENTED NEUTROPHILS % 73 % (51-67); TOTAL CELLS COUNTED 100
[2016-10-15 18:20] LABS: ALBUMIN 3.2 g/dL (3.4-5.0); ANION GAP 20.4 MEQ/L (3-15); MAGNESIUM* 1.4 mg/dL (1.6-2.3); RBC MORPH NORMAL (NORMAL); TOTAL PROTEIN 6.8 g/dL (6.4-8.5)
--- NOTE | 2016-10-15 19:09 | Diagnostic Imaging Report ---
INDICATION: Hypoxemia. PA and lateral chest. FINDINGS: There are some patchy alveolar infiltrates at both lung bases that could represent pneumonia. There is no effusion or pneumothorax. Heart size and pulmonary vascularity are normal. IMPRESSION: Small patchy alveolar nodular infiltrates at both lung bases suspicious for pneumonia. Dictated by: Dictated on workstation # [id number]
--- NOTE | 2016-10-15 19:11 | Diagnostic Imaging Report ---
INDICATION: Hypoxia, surgery five days ago. COMPARISON STUDY: KUB from October 10, 2016. FINDINGS: Supine view of the abdomen demonstrates skin alejandro in place and a left ureteral stent in place. Small bowel loops are dilated. There is still gas in the colon. Possible early small bowel obstruction versus ileus. IMPRESSION: Early small bowel obstruction versus ileus. Small bowel obstruction is worrisome as this measures 7 cm. Dictated by: Dictated on workstation # [id number]
[2016-10-15] MEDS ORDERED: MAGNESIUM 2 GM/50 ML IVPB 50 ML IV ONE (19:15)
[2016-10-15] MEDS: ENOXAPARIN 40 MG/0.4 ML (LOVENOX) SYR SC SCH (19:26)
[2016-10-15] MEDS ORDERED: LIDOCAINE 4% TOPICAL 4.5 ML SYR ONE (19:34)
[2016-10-15] MEDS ORDERED: OXYMETAZOLINE 0.05% NASAL SPRAY (AFRIN) 15 ML BTL ONE (19:35)
[2016-10-15 19:48] VITALS: BP 142/83
[2016-10-15] MEDS ORDERED: MAGNESIUM 1 GM/100 ML IVPB 100 ML IV ONE (20:55)
[2016-10-15] MEDS: meTOprolol 5 MG/5 ML (LOPRESSOR) VIAL IV SCH (20:58)
--- NOTE | 2016-10-15 20:59 | Diagnostic Imaging Report ---
INDICATION: NG tube placement. EXAM: KUB FINDINGS: There is an NG tube projecting over the stomach. The bowel gas pattern is unremarkable. IMPRESSION: NG tube projects over the stomach. Dictated by: Dictated on workstation # [id number]
[2016-10-15] MEDS: MAGNESIUM 1 GM/100 ML IVPB 100 ML IV SCH ×2 (21:43→23:00)
[2016-10-16] VITALS (7 sets, daily range): BP systolic 113–161; BP diastolic 59–74
[2016-10-16] MEDS: LACTATED RINGERS 1,000 ML IV SCH (04:13)
[2016-10-16 05:53] LABS: BASOPHILS % (AUTO) 0 % (0-2); EOSINOPHILS # (AUTO) 0.4 10^3uL; EOSINOPHILS % (AUTO) 4 % (0-4); LYMPHOCYTES # (AUTO) 1.5 X10^3; MEAN CORPUSCULAR HEMOGLOBIN 29.5 PG (26.0-34.0); MEAN CORPUSCULAR VOLUME 94 FL (80-100); MEAN PLATELET VOLUME 8.5 FL (6.0-9.5); MONOCYTES # (AUTO) 0.9 X10^3; MONOCYTES % (AUTO) 9 % (3-11); NEUTROPHILS # (AUTO) 7.2 X10^3; NEUTROPHILS % (AUTO) 72 % (51-67); PLATELET COUNT 244 10^3uL (150-450); WHITE BLOOD COUNT 10.04 10^3uL (4.0-11.0)
[2016-10-16] MEDS: meTOprolol 5 MG/5 ML (LOPRESSOR) VIAL IV SCH ×3 (06:02→21:53)
[2016-10-16 06:04] LABS: MEAN CORPUSCULAR HGB CONC 31.4 g/dL (31.0-37.0)
[2016-10-16 06:11] LABS: ANION GAP 17.1 MEQ/L (3-15); MAGNESIUM* 1.9 mg/dL (1.6-2.3)
[2016-10-16] MEDS: FLUTICASONE/SALMETEROL HFA 230/21 MCG (ADVAIR) COMMON CANNISTER INH SCH ×2 (07:25→20:27)
[2016-10-16] MEDS: SODIUM CHLORIDE FLUSH 3 ML SYR IV SCH (08:30)
[2016-10-16] MEDS ORDERED: NS IV 500 ML 500 ML IV SCH (08:35)
[2016-10-16] MEDS ORDERED: NS W/KCL 20 MEQ/L 1,000 ML IV SCH (08:35)
--- NOTE | 2016-10-16 08:35 | Progress Note-A/P (E) ---
Progress Note Subjective Subjective Patient experienced worsening pain, shortness of breath and hypoxia yesterday afternoon. X-ray showed gastric distension and NG tube was placed. This has drained about 2500cc and all clinical parameters have improved. She feels much better. Stoma appliance replaced last night due to leaking. Objective VS Vital Signs Date Time Temp Pulse Resp B/P Pulse Ox O2 Delivery O2 Flow Rate FiO2 10/16/16 07:40 92 Nasal cannula 10/16/16 07:21 97.5 83 24 140/69 10/14/16 00:00 0.00 I&O I & O Past 24 hrs 10/16/16 07:00 Intake Total 1765 ml Output Total 3350 ml Balance -1585 ml Intake Oral 0 ml IV Total 1765 ml Output Urine Total 800 ml Gastric Drainage Total 2550 ml Current Medications Current Medications Losartan Potassium 100 mg DAILY PO Last administered on 10/15/16 09:25; Admin Dose 100 MG; Start 10/14/16 at 16:50; Status Future Hold Enoxaparin Sodium 40 mg Q24HR SC Last administered on 10/15/16 19:26; Admin Dose 40 MG; Start 10/15/16 at 17:50 Metoprolol Tartrate 5 mg 5 mg Q8H IV Last administered on 10/16/16 06:02; Admin Dose 5 MG; Start 10/15/16 at 19:15 Magnesium Sulfate/ Dextrose 100 ml @ 100 mls/hr UD IV Last administered on 23:00; Admin Dose 100 MLS/HR; Start 10/15/16 at 21:35; Stop 10/16/16 at 22:34 General Awake, alert, oriented, no distress. Appears much more comfortable than yesterday afternoon. CV S1S2 RRR Lungs Clear with no wheezing or crackles. Abdomen Scant serous drainage, no pus or erythema. Stoma intact. Extremities Mild edema to lower extremities Integumentary No unusual findings Neuro Grossly normal Labs, Most Recent- Laboratory Results Past 24 Hrs 10/15/16 18:00: Absolute Band Neutrophils 3.2, Alanine Aminotransferase (ALT/SGPT) 27, Albumin 3.2, Albumin/Globulin Ratio 0.888, Alkaline Phosphatase 126, Anion Gap 20.4, Aspartate Amino Transf (AST/SGOT) 20, BUN/Creatinine Ratio 22, Band Neutrophils % 19, Basophils # (Auto) , Basophils # (Manual) 0.0, Basophils % (Manual) 0, Basophils (%) (Auto) , Blood Morphology Comment Normal, Blood Urea Nitrogen 32, Calcium Level 8.9, Calcium/Ionized Calcium Ratio 4.0, Calculated Osmolality 281 , Carbon Dioxide Level 25, Chloride Level 100, Creatinine 1.47, Differential Total Cells Counted 100, Eosinophils # 0.0, Eosinophils # (Auto) , Eosinophils % (Manual) 0, Eosinophils (%) (Auto) , Estimat Glomerular Filtration Rate 42.9, Estimated GFR (Non- 35.5, Glucose Level 130, Hematocrit 28.60, Hemoglobin 9.1, Lipase 66, Lymphocytes # 0.9, Lymphocytes # (Auto) , Lymphocytes % (Manual) 5, Lymphocytes (%) (Auto) , Magnesium Level 1.4, Mean Corpuscular Hemoglobin 29.8, Mean Corpuscular Hemoglobin Concent 31.8, Mean Corpuscular Volume 94, Mean Platelet Volume 8.7, Monocytes # 0.5, Monocytes # ( Auto) , Monocytes % (Manual) 3, Monocytes (%) (Auto) , Neutrophils # 12.9, Neutrophils # (Auto) , Neutrophils (%) (Auto) , Phosphorus Level 3.0, Platelet Count 302, Potassium Level 4.3, Red Blood Count 3.05, Red Cell Distribution Width 14.6, Segmented Neutrophils % 73, Sodium Level 141, Total Bilirubin 1.6, Total Protein 6.8, Troponin I < 0.012, White Blood Count 17.64 10/16/16 05:45: Anion Gap 17.1, BUN/Creatinine Ratio 25, Basophils # (Auto) 0.0, Basophils (%) ( Auto) 0, Blood Urea Nitrogen 38, Calcium Level 8.6, Carbon Dioxide Level 27, Chloride Level 101, Creatinine 1.53, Eosinophils # (Auto) 0.4, Eosinophils (%) ( Auto) 4, Estimat Glomerular Filtration Rate 41.0, Estimated GFR (Non- 33.9, Glucose Level 100, Hematocrit 24.50, Hemoglobin 7.7, Lymphocytes # (Auto) 1.5, Lymphocytes (%) (Auto) 15, Magnesium Level 1.9, Mean Corpuscular Hemoglobin 29.5, Mean Corpuscular Hemoglobin Concent 31.4, Mean Corpuscular Volume 94, Mean Platelet Volume 8.5, Monocytes # (Auto) 0.9, Monocytes (%) (Auto ) 9, Neutrophils # (Auto) 7.2, Neutrophils (%) (Auto) 72, Platelet Count 244, Potassium Level 3.7, Red Blood Count 2.61, Red Cell Distribution Width 14.3, Sodium Level 141, White Blood Count 10.04 24 Hr Result Diagram CBC BMP Last 24 Hrs 10/15/16 18:00 10/16/16 05:45 Assessment POD#6 Sigmoid colectomy, repair of colovesical fistula, and diverting ileostomy Postoperative ileus Plan 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 Will increase fluids to relace gastric losses. JOSELYN OLIVARES MD Oct 16, 2016 08:35
[2016-10-16] MEDS: ENOXAPARIN 40 MG/0.4 ML (LOVENOX) SYR SC SCH (10:44)
[2016-10-16] MEDS: D5 NS W/KCL 20 MEQ/L 1,000 ML IV SCH ×2 (12:05→21:52)
[2016-10-17] VITALS (7 sets, daily range): BP systolic 138–189; BP diastolic 57–72
[2016-10-17] MEDS: meTOprolol 5 MG/5 ML (LOPRESSOR) VIAL IV SCH ×3 (06:10→21:17)
[2016-10-17] MEDS: D5 NS W/KCL 20 MEQ/L 1,000 ML IV SCH ×3 (06:11→23:05)
[2016-10-17 06:21] LABS: BASOPHILS % (AUTO) 0 % (0-2); EOSINOPHILS # (AUTO) 0.3 10^3uL; EOSINOPHILS % (AUTO) 3 % (0-4); LYMPHOCYTES # (AUTO) 1.2 X10^3; MEAN CORPUSCULAR HEMOGLOBIN 29.3 PG (26.0-34.0); MEAN CORPUSCULAR VOLUME 96 FL (80-100); MONOCYTES # (AUTO) 0.9 X10^3; MONOCYTES % (AUTO) 9 % (3-11); NEUTROPHILS # (AUTO) 7.3 X10^3; NEUTROPHILS % (AUTO) 75 % (51-67); PLATELET COUNT 279 10^3uL (150-450); WHITE BLOOD COUNT 9.76 10^3uL (4.0-11.0)
[2016-10-17 06:31] LABS: MEAN CORPUSCULAR HGB CONC 30.7 g/dL (31.0-37.0)
[2016-10-17 06:52] LABS: ANION GAP 14.3 MEQ/L (3-15)
[2016-10-17] MEDS: FLUTICASONE/SALMETEROL HFA 230/21 MCG (ADVAIR) COMMON CANNISTER INH SCH ×2 (07:08→19:31)
[2016-10-17] MEDS: SODIUM CHLORIDE FLUSH 3 ML SYR IV SCH (09:00)
[2016-10-17] MEDS: ENOXAPARIN 40 MG/0.4 ML (LOVENOX) SYR SC SCH (09:53)
--- NOTE | 2016-10-17 10:09 | Progress Note-A/P (E) ---
Progress Note Subjective Subjective Doing well, with NG in place. Drained 550cc overnight. Not much stoma output at all. Objective VS Vital Signs Date Time Temp Pulse Resp B/P Pulse Ox O2 Delivery O2 Flow Rate FiO2 10/17/16 08:58 88 18 94 Room air 10/17/16 08:05 96.9 138/68 10/14/16 00:00 0.00 I&O I & O Past 24 hrs 10/17/16 06:59 Intake Total 2728 ml Output Total 2075 ml Balance 653 ml Intake Oral 0 ml IV Total 2728 ml Output Urine Total 575 ml Gastric Drainage Total 1500 ml Current Medications Current Medications Enoxaparin Sodium 40 mg 40 mg Q24HR SC Last administered on 10/17/16 09:53; Admin Dose 40 MG; Start 10/15/16 at 17:50 Potassium Chloride/Dextrose/ Sod Cl 1,000 ml @ 120 mls/hr Q8H20M IV Last administered on 10/17/16 06:11; Admin Dose 120 MLS/HR; Start 10/16/16 at 08:40 Metoprolol Tartrate 5 mg Q8HR IV Last administered on 10/17/16 06:10; Admin Dose 5 MG; Start 10/16/16 at 14:00 General Awake, alert, oriented, no distress. Sitting in chair. CV S1S2 RRR Lungs Clear with no wheezing or crackles. Abdomen More serous, green-tinged drainage on dressings. No enteric contents. These were changed. Stoma intact. Extremities Mild edema to lower extremities Integumentary No unusual findings Neuro Grossly normal Labs, Most Recent- Laboratory Results Past 24 Hrs 10/17/16 06:00: Anion Gap 14.3, BUN/Creatinine Ratio 26, Basophils # (Auto) 0.0, Basophils (%) ( Auto) 0, Blood Urea Nitrogen 31, Calcium Level 8.3, Carbon Dioxide Level 32, Chloride Level 103, Creatinine 1.19, Eosinophils # (Auto) 0.3, Eosinophils (%) ( Auto) 3, Estimat Glomerular Filtration Rate 54.7, Estimated GFR (Non- 45.2, Glucose Level 134, Hematocrit 25.40, Hemoglobin 7.8, Lymphocytes # (Auto) 1.2, Lymphocytes (%) (Auto) 13, Mean Corpuscular Hemoglobin 29.3, Mean Corpuscular Hemoglobin Concent 30.7, Mean Corpuscular Volume 96, Mean Platelet Volume 9.0, Monocytes # (Auto) 0.9, Monocytes (%) (Auto) 9, Neutrophils # (Auto ) 7.3, Neutrophils (%) (Auto) 75, Platelet Count 279, Potassium Level 3.6, Red Blood Count 2.66, Red Cell Distribution Width 14.6, Smear Scan Yes, Sodium Level 146, White Blood Count 9.76 24 Hr Result Diagram CBC BMP Last 24 Hrs 10/17/16 06:00 Assessment POD#7 Sigmoid colectomy, repair of colovesical fistula, and diverting ileostomy Postoperative ileus Plan 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 We'll need to consider TPN if ileus persists much longer. JOSELYN OLIVARES MD Oct 17, 2016 10:09
[2016-10-18] VITALS (10 sets, daily range): BP systolic 155–181; BP diastolic 61–77
[2016-10-18] MEDS: meTOprolol 5 MG/5 ML (LOPRESSOR) VIAL IV SCH ×3 (05:12→21:40)
[2016-10-18] MEDS: D5 NS W/KCL 20 MEQ/L 1,000 ML IV SCH ×3 (07:04→15:20)
[2016-10-18] MEDS: FLUTICASONE/SALMETEROL HFA 230/21 MCG (ADVAIR) COMMON CANNISTER INH SCH ×2 (07:22→19:50)
--- NOTE | 2016-10-18 08:56 | Progress Note-A/P (E) ---
Progress Note Subjective Subjective She had a good night. There is drainage in stoma bag today with leakage. Objective VS Vital Signs Date Time Temp Pulse Resp B/P Pulse Ox O2 Delivery O2 Flow Rate FiO2 10/18/16 07:55 97.3 83 18 178/76 96 Nasal cannula 10/17/16 15:51 0.00 I&O I & O Past 24 hrs 10/18/16 07:00 Intake Total 3162 ml Output Total 2400 ml Balance 762 ml Intake Oral 350 ml IV Total 2812 ml Output Urine Total 1100 ml Gastric Drainage Total 1300 ml Current Medications Current Medications Metoprolol Tartrate 5 mg Q8HR IV Last administered on 10/18/16t 05:12; Admin Dose 5 MG; Start 10/16/16 at 14:00 General Awake, alert, oriented, no distress. Sitting in chair. CV S1S2 RRR Lungs Clear with no wheezing or crackles. Abdomen Stoma bag with liquid stool. Dressing left intact to laparotomy wound. She is going to the shower shortly. Extremities Mild edema to lower extremities Integumentary No unusual findings Neuro Grossly normal Assessment POD#8 Sigmoid colectomy, repair of colovesical fistula, and diverting ileostomy Postoperative ileus, appears to be resolving Plan Will follow progress through the day; may be able to remove NG tube later. Stoma soilage may be an issue as output increases. JOSELYN OLIVARES MD Oct 18, 2016 08:56
[2016-10-18] MEDS: SODIUM CHLORIDE FLUSH 3 ML SYR IV SCH (09:00)
[2016-10-18] MEDS: ENOXAPARIN 40 MG/0.4 ML (LOVENOX) SYR SC SCH (09:09)
[2016-10-19] VITALS (14 sets, daily range): BP systolic 109–182; BP diastolic 49–88
[2016-10-19] MEDS: D5 NS W/KCL 20 MEQ/L 1,000 ML IV SCH (00:22)
[2016-10-19] MEDS: NITROGLYCERIN SUBLINGUAL 0.4 MG (NITROQUICK) TABLET SL PRN ×2 (01:55→02:05)
[2016-10-19] MEDS ORDERED: ASPIRIN 81 MG CHEW (LOW-DOSE) ONE (01:57)
[2016-10-19 02:22] LABS: MEAN CORPUSCULAR HEMOGLOBIN 29.3 PG (26.0-34.0); MEAN PLATELET VOLUME 8.9 FL (6.0-9.5); PLATELET COUNT 320 10^3uL (150-450); WHITE BLOOD COUNT 19.21 10^3uL (4.0-11.0)
[2016-10-19 02:30] LABS: MEAN CORPUSCULAR VOLUME 98 FL (80-100)
[2016-10-19] MEDS ORDERED: meTOprolol 5 MG/5 ML (LOPRESSOR) VIAL IV ONE (02:30)
[2016-10-19 02:32] LABS: ALBUMIN 2.6 g/dL (3.4-5.0); ANION GAP 16.7 MEQ/L (3-15); CALCULATED IONIZED CALCIUM 3.8 mg/dL (3.8-4.6); TOTAL PROTEIN 5.8 g/dL (6.4-8.5)
[2016-10-19] MEDS ORDERED: D5 IV SCH (02:35)
[2016-10-19] MEDS ORDERED: POTASSIUM CHLORIDE IV SCH (02:35)
[2016-10-19] MEDS ORDERED: 1/2 NS IV SCH (02:35)
[2016-10-19 02:39] LABS: ANISOCYTOSIS MODERATE; BAND NEUTROPHILS % 5 % (0-6); EOSINOPHILS % 1 % (0-4); HYPOCHROMASIA SLIGHT; LYMPHOCYTES # 0.6 #; MONOCYTES # 0.8 #; MONOCYTES % 4 % (3-11); SEGMENTED NEUTROPHILS % 87 % (51-67); TOTAL CELLS COUNTED 100
[2016-10-19 02:40] LABS: STOMATOCYTES SLIGHT
--- NOTE | 2016-10-19 02:46 | Progress Note (E) ---
Progress Note Called to see patient with severe mid-back pain radiating to chest, elevated BP and heart rate. O2 sat 93% on 3L NC. No respiratory or GI symptoms. Chest pain and vitals improved with morphine and SL ntg. Also given chewable aspirin. Lungs clear, CV RR with no murmurs or gallops. Abdomen soft with positive BS. Ileostomy viable and functional. NG bilious with 400 ml since 10 pm. Urine output good. EKG showed T wave inversions in the inferior leads, resolved after the above Rx. Enzymes and labs drawn and pending. Dr. Graves (hospitalist) consulted via telemedicine link. He evaluated the patient, and does not feel she needs urgent transfer for cardiology intervention. He gave additional IV metoprolol, 5 mg. I will transfer the patient to ICU, obtain follow up enzymes. On site hospitalist to evaluate in am. MARIFER GUZMAN MD Oct 19, 2016 02:46
[2016-10-19 02:51] LABS: RBC MORPH NORMAL (NORMAL)
[2016-10-19] MEDS ORDERED: D5 1/2 NS W/KCL 20 MEQ/L 1,000 ML IV SCH (03:00)
--- NOTE | 2016-10-19 03:10 | Consult Internal Medicine (EF) ---
IM Consult (E) PCP: Justin Mcgee MD Stated Reason for Consult: chest pain Findings/Summary: I was notified of urgent consult at 1:53 AM. Chest pain that woke her patient' s at around 12:30. She isn't sleeping, he felt cold and shivering. She had a sharp burning pain in her front and also affected her in her back. She had it for approximately 1 hour after the eye had visited with her. She was evaluated by her surgeon, who ordered to nitroglycerin. The patient's blood pressure of the time was 206/83, the nitros dropped her pressure from 179-141 systolic. As I visit with her now for pain is down to perhaps a 07/23. She did describe it as also a chest pressure. She was given 81 mg of aspirin as well. She has been on metoprolol 10 mg IV every 8 hours the last of which was given at 10 PM. She is status post partial colon resection and vesicular repair with ileostomy placement for a fistula developed probably as a result of complication of diverticular disease. This was performed on October 10. She has had a postoperative ileus and still has an NG tube in. She denies any cardiac history, she said she had a stress test years ago that she thinks was reportedly normal. She denies cough or shortness of breath she denies dysuria she does have a [place] that should remain until the next week. Past medical history briefly includes hypertension asthma status post partial thyroidectomy past surgical history includes bilateral knee replacements thyroidectomy veins. Therapy colonoscopy and EGDs previously. Family history noncontributory based on age Surgical history denies tobacco or alcohol use using child care aide at [facility] Review of systems 10 points cover negative otherwise Medications see below Physical exam blood pressure 141/73/93% on 3 L nasal cannula. 5 respirations 20Temperature 98.2 In general she is very pleasant is in no distress Nasal cannula in place nasogastric tube in place Clear bilaterally Cardiovascular regular without murmur gallop or rub Abdomen soft, did not assess with further Extremities with trace edema Neuro she doesn't have any focal deficits noted EKG shows inferior ST depression and lateral ST or if there is no ST elevation or t-wave segments this was on a brief evaluation the robotic valve, I'm waiting for the fax to arrive Allergies/Home Medications Allergies: Coded Allergies: adhesive (Verified Allergy, Unknown, 10/09/16) lisinopril (Verified Allergy, Unknown, 10/09/16) meloxicam (Verified Allergy, Unknown, 09/13/16) increases creatinine tetanus toxoid, adsorbed (Verified Allergy, Unknown, 09/12/16) Reported Home Medications Scheduled Alendronate Sodium (Fosamax) 70 MG PO Weekly (Reported) Allopurinol (Allopurinol) 300 MG PO DAILY (Reported) Budesonide/Formoterol Fumarate (Symbicort 160-4.5 mcg Inhaler) 2 PUFF IH BID ( Reported) Calcium Citrate/Vitamin D3 (Citracal + D Caplet) 1 EACH PO DAILY (Reported) Carvedilol (Coreg) 12.5 MG PO BID (Reported) Cholecalciferol (Vitamin D3) (Vitamin D3) 1,000 UNIT PO DAILY (Reported) Gluc 2KCL/Chondr/[place] Hy/Hy Ac (Glucosamine & Chondroitin Cap) 1 EACH PO BID ( Reported) Levothyroxine Sodium (Levothyroxine Sodium) 50 MCG PO DAILY (Reported) Losartan Potassium (Losartan Potassium) 100 MG PO DAILY (Reported) Multivitamin (Multi-Day Vitamins) 1 TAB PO DAILY (Reported) Om-3/Dha/Epa/Fish Oil/Vit D3 (Fish Oil + Vitamin D-3 Softgel) 1 EACH PO BID ( Reported) OT Daily Treatment Service Date/Time 10/19/16, 02:57 Primary Diagnosis: (1) Chest pain ICD Code: R07.9 (2) Hypertensive urgency ICD Code: I16.0 (3) Postoperative ileus ICD Code: K91.3 (4) Leukocytosis ICD Code: D72.829 (5) Anemia ICD Code: D64.9 (6) Hypothyroidism (acquired) ICD Code: E03.9 (7) Diverticulitis (8) Ileostomy in place ICD Code: Z93.2 (9) [place]-vesical fistula ICD Code: N32.1 (10) Status post colectomy ICD Code: Z90.49 Treatment Diagnosis: Precaution/Isolation: Standard Precautions Fall Level: Low Risk 25-50 Resuscitation Status: Full Code I was specifically asked to eval chest pain. I am concerned this is unstable angina. Her blood pressure was quite elevated in 200s and this very well could 've been related to her symptoms. Her blood pressures in both arms are noted to be 138/70 in the right 151/64 in the left, I think it is unl will repeat this in a couple hours.to any dissection etc. She is improving the nitroglycerin which is good. She does mention it, feels like heartburn and would be very expected with the NG and for this to be the case as the heartburn not heart problems. She's been given aspirin, we will rule out NM with serial enzymes. I think keeping her blood pressure control is. Certainly postoperatively like this TPA would be a contraindication, but if she does develop positive cardiac enzymes then transferred to a facility who has cardiology and possible angiographic last PCI capabilities with the plan she is far enough out from her surgery that antiplatelet therapy would be reasonable. At this point I'm not willing to do a heparin infusion, but again if her pain does not resolve or her cardiac enzymes rise and we'll revisit this and discuss with surgery. re: the chills, and her elevated white blood cell count, order blood cultures and urine cx as well ADDENDUM Troponin has gone up minimally this morning/overnight. Has been chest pain free and I think EKG looks improved. I think had HTN demand type ischemia but certainly NSTEMI, just a matter of type 1 with occlusion or type 2 from HTN/ strain. With recent surgery I am hesitant for fullblown heparin infusion at this point. Will instruct day hospital medicine doc to discuss w CV in [place] / outside and decide on further actions Will order 1 unit of blood, with acute ischemia hgb 7.7 may benefit from more o2 carrying capacity, and if need to use heparin then having more hgb will be important w bleeding risk Oxygen Needed: Nasal cannula O2 liters/minute: 3L VICK KEYS MD Oct 19, 2016 03:10
[2016-10-19 04:13] LABS: BILIRUBIN,URINE Negative (Negative); CLARITY,URINE Cloudy; COLOR,URINE Yellow; GLUCOSE, URINE (UA) Negative (Negative); LEUKOCYTE ESTERASE ,URINE 2+ (Negative); UROBILINOGEN,URINE 0.2 mg/dL (0.2-1.0)
[2016-10-19 04:17] LABS: URINE CENTRIFUGED VOLUME 12 mL
[2016-10-19 04:23] LABS: RBC,URINE 20-50 /HPF
[2016-10-19 04:25] LABS: YEAST,URINE 2+
[2016-10-19] MEDS: meTOprolol 5 MG/5 ML (LOPRESSOR) VIAL IV SCH (06:09)
--- NOTE | 2016-10-19 07:20 | Diagnostic Imaging Report ---
INDICATION: Respiratory distress. Compared 10/15/2016. FINDINGS: Patchy bilateral pulmonary infiltrates similar to the prior present, suggest foci of pneumonia. Heart size upper limits but unchanged. No effusion or pneumothorax. IMPRESSION: No acute pleural abnormality. Patchy bilateral infiltrates unchanged. Dictated by: Dictated on workstation # [id number]
[2016-10-19] MEDS ORDERED: NITROGLYCERIN 2% OINTMENT (NITRO-BID) 1 GM UNIT DOSE PACKET TOP ONE ×2 (07:45)
[2016-10-19] MEDS ORDERED: ASPIRIN 325 MG TAB NG SCH (07:55)
--- NOTE | 2016-10-19 08:58 | Progress Note (E) ---
Progress Note Surgery note Subjective: Patient has mild epigastric pain, controlled with MANAGER MEDICAL. Occasional nausea. No respiratory complaints. Objective: Vitals stable. O2 sat mid 90's on 3L NC. Patient alert, oriented, and in no distress. Lungs clear, CV RR no murmurs or gallops. Abdomen soft, nontender with hypoactive BS. Incision intact without erythema. Ileostomy viable , slightly retracted. Some liquid in the bag. Urine output clear, good volume. NG bilious, 400 ml over 8 hours. Troponin I now over 0.7. Urine shows 10--50 WBC's with nitrite positive ( culture pending). WBC has increased compared to prior value. Hgb stable at 7.8. Prior EKG changes resolved. Impression: 1. Myocardial infarction. 2. Possible UTI. 3. Small bowel ileus. Recommendations: As discussed with the hospitalist, transfer for cardiology care recommended. Dr. Michel in [place] accepts in transfer (her urologist, Dr. Torres is there, too. He wanted burt left in for 10 days post-op). Patient and spouse updated, and agreeable with transfer. Stat D/C summary dictated, # [id number] MARIFER GUZMAN MD Oct 19, 2016 08:58
--- NOTE | 2016-10-19 13:19 | Progress Note (E) ---
Progress Note October Dr Gomes' Note: I first saw Mrs Valladares in her ICU bed the early am of 10-19-2016. She had been moved to icu from the floor due to chest and back pain and an elevated troponin and a non stemi. she admits to a little chest pressure and agrees to a transfer to the [facility]. lungs are clear to auscultation;heart has a regular rate and rhythm ;the abdomen is non tender and patient is oriented x 4. We ordered 3/4 inch of nitro paste and a 325 mg asa po ,but did not order any blood thinner due to a 7.7 hgb and the recent surgery. I spoke to Marvin Michel and Felicia, the crop supervisor. They both agreed to accept this patient at [facility]. assessment: 1.nonstemi acute 2.s/p 9 days colon resection and ileus 3.hypertensio 4.diverticular disease PlanP: Transfer patient via EMS [facility] to [facility]. BLAYNE GOMES DO Oct 19, 2016 13:19
--- NOTE | 2016-10-21 08:20 | DISCHARGE SUMMARY ---
ADMISSION DATE: 10/10/2016 TRANSFER DATE: 10/19/2016 DISCHARGE DIAGNOSES: 1. Colovesical fistula, status post surgical repair. 2. Myocardial infarction. 3. Anemia of blood loss. 4. History of hypertension. 5. Asthma. 6. Morbid obesity. 7. Hypothyroidism. PROCEDURES: 1. 10/10/2016 cystoscopy with left ureteral stent placement by Dr. Hankins (urology). 2. Sigmoid colectomy with repair of the bladder and protective loop ileostomy by Dr. Cornell. CONSULTANTS: Hospitalist service PRESENT ILLNESS AND POSITIVE PHYSICAL FINDINGS: This patient presented because of frequent recurrent urinary tract infections. Cystoscopy by Dr. Hankins and colonoscopy by Dr. Cornell confirmed the presence of a colovesical fistula. She presented for elective repair. At surgery the patient was noted to have marked acute and chronic inflammation, but the procedure was successful. The patient had a diverting loop ileostomy with primary colorectal anastomosis. In the postoperative period the patient had an ileus, which ultimately required NG placement because of gastric distension. However, she began to have some output through the ileostomy prior to transfer. On the play leader on the day of transfer, the patient developed severe back pain radiating to her chest. She was noted to have ST segment depression in the inferior leads on the EKG. She was given nitroglycerin, morphine and chewable aspirin. With this, the pain subsided. The hospitalist was consulted, and felt she did not need urgent transfer. Patient was monitored overnight in the ICU. Follow up troponins elevated to 0.763. The hospitalist at that point felt she should be transferred for cardiology evaluation and management. Dr. Michel at [facility] accepted the patient in transfer. At the time of the transfer the patient's vitals were stable and she had minimal epigastric pain. SIGNIFICANT X-RAY AND LABORATORY DATA: Labs on the day of transfer included CBC significant for new elevation of white count of 19,200, hemoglobin 7.7 (stable over the last 3 days) with a hematocrit of 25.7 (The patient did received 1 unit of packed cells at the time of surgery). Differential was 87% poly's and 5% bands. Urinanalysis was suspicious for urinary tract infection with nitrite positive and 50 to 100 white cells per high-powered field and positive leukocyte and 20 to 50 red cells per high-powered field with culture pending. Chemistries at discharge include sodium 151, potassium 3.8, CO2 30. BUN was 12 with creatinine of 0.86. Glucose was 122. Troponin, as noted above, was 0.763. Final pathology revealed diverticulitis. DISPOSITION: The patient was transferred, as noted above, to [place] for further evaluation and management. Dr. Torres was to follow up with her there. Patient to follow up with Dr. Cornell after discharge. DISCHARGE MEDICATIONS: In the hospital at the time of transfer included 1. Aspirin 325 mg daily. 2. D5 1/2 normal saline with 20 mEq of potassium/L at 120 mL/hour. 3. Metoprolol 10 mg IV every 8 hours. 4. Lovenox 40 mg subcu every 24 hours. 5. Morphine MECHANICS HANDYMAN 1 mg/dose, 6 minute lockout and 24 mg 4 hour lockout. 6. The patient is also taking Advair HFA 230/21 mcg 2 inhalations twice daily. 7. Reglan 10 mg IV every 6 hours. HOME MEDICATIONS: 1. Fosamax 70 mg daily. 2. Allopurinol 300 mg daily. 3. Symbicort 160/4.5 mcg 2 puffs twice daily. 4. Citracal plus D once daily. 5. Coreg 12.5 mg twice a day. 6. Vitamin D3 1000 units daily by mouth. 7. Glucosamine and chondroitin cap 1 each twice daily. 8. Levothyroxine 50 mcg daily. 9. Losartan 100 mg daily. 10. Multivitamin once daily. 11. Fish oil plus vitamin D 1 each twice daily. CONDITION ON DISCHARGE: The patient was stable at the time of transfer.
== END 2016-10-19 09:10 | disposition short-term general hospital (02) | DRG 653 ==
LOC: ASC 08:11 → MED/SURG 11:21 → ICU 15:18 → ASC 17:57 → UNDOADMIN 17:57 → ICU 17:57 → ASC 10-11 09:13 → ICU 10-11 09:13 → UNDOADMIN 10-11 09:20 → ICU 10-11 09:20 → MED/SURG 10-12 13:45 → ICU 10-19 02:41
PROVIDERS: ADMIT Surgery; ATTEND Surgery
PROC: 0D1B0Z4 Bypass Ileum to Cutaneous, Open Approach (ICD-10-PCS; principal; 2016-10-10)
PROC: 0DTN0ZZ Resection of Sigmoid Colon, Open Approach (ICD-10-PCS; principal; 2016-10-10)
PROC: 0TQB0ZZ Repair Bladder, Open Approach (ICD-10-PCS; principal; 2016-10-10)
PROC: 0WHR8YZ Insertion of Other Device into Genitourinary Tract, Via Natural or Artificial Opening Endoscopic (ICD-10-PCS; principal; 2016-10-10)
DX: N32.1 Vesicointestinal fistula (principal); I21.4 Non-ST elevation (NSTEMI) myocardial infarction; K94.13 Enterostomy malfunction; K91.3 Postprocedural intestinal obstruction; Z68.41 Body mass index [BMI] 40.0-44.9, adult; D50.0 Iron deficiency anemia secondary to blood loss (chronic); D72.829 Elevated white blood cell count, unspecified; I10 Essential (primary) hypertension; J45.20 Mild intermittent asthma, uncomplicated; E66.01 Morbid (severe) obesity due to excess calories; E03.9 Hypothyroidism, unspecified; Y83.3 Surgical operation with formation of external stoma as the cause of abnormal reaction of the patient, or of later complication, without mention of misadventure at the time of the procedure
CPT/HCPCS: 36415; 71010; 71020; 74000; 74020; 80048; 80053; 81003; 81015; 82330; 82550; 83690; 83735; 84100; 84484; 85014; 85018; 85025; 86850; 86900; 86901; 86920; 87040; 87077; 87088; 87186; 88304; 88307; 88309; 93005; 94640; 94760; 94770

== ENCOUNTER → 2016-10-19 | Outpatient (CLI) | payer MEDICARE, OTHER ==
[~2016-10-19] MED LIST changes: +CHOL10002 PO; -LACTATED RINGERS 1,000 ML IV SCH; +LEVO50TA6 PO; +MULT-301 PO; -SODIUM CHLORIDE FLUSH 3 ML SYR IV PRN; -ceFAZolin 2,000 MG in WATER (STERILE) FOR INJECTION 20 ML IV SCH
== END ==
LOC: EMS 08:50
PROVIDERS: ATTEND Internal Medicine
DX: I21.4 Non-ST elevation (NSTEMI) myocardial infarction (principal); R79.89 Other specified abnormal findings of blood chemistry

== ENCOUNTER 2016-11-01 11:21 | Inpatient (IN) | payer MEDICARE, OTHER ==
[~2016-11-01] VITALS: Ht 157.5 cm; Wt 93.5 kg
--- NOTE | 2016-11-01 11:25 | NUR ---
Patient arrives to room 314 via wheelchair from [facility]. Transported via private car by Zachary Valladares, . Alert and oriented X3. Reports generalized abdominal pain rated 3/1o on pain scale. Reports last PRN [place] at [place] was administered at 1015. Wound vac dressing intact to medial abdomen (wound measures 17 cm long X 7 cm wide) but disconnected from pump. PT notified that patient has arrived and is in need of pump. Ileostomy bag full of air, burped. Quiñones catheter draining clear yellow urine. See admission for full assessment.
[2016-11-01 11:40] VITALS: BP 137/69
[2016-11-01] MEDS ORDERED: NAPR250T34 PO (12:29)
[2016-11-01] MEDS ORDERED: AMOX1TAB12 PO (12:31)
[2016-11-01] MEDS ORDERED: HYDR-3702 PO (12:33)
[2016-11-01] MEDS ORDERED: LACT1CAP66 PO (12:34)
[2016-11-01] MEDS ORDERED: levaquin PO (12:36)
[2016-11-01] MEDS ORDERED: LEVO250T46 PO (12:37)
[2016-11-01] MEDS ORDERED: MGX400T PO (12:38)
[2016-11-01] MEDS ORDERED: METO25TA60 PO (12:39)
[2016-11-01] MEDS ORDERED: NTR.4SL SL (12:40)
[2016-11-01] MEDS ORDERED: PANT40TA3 PO (12:41)
[2016-11-01] MEDS ORDERED: [UNRECOGNIZED DRUG - CODE] TOP (12:42)
[2016-11-01] MEDS ORDERED: SMT80CT PO (12:43)
[2016-11-01] MEDS ORDERED: NITROGLYCERIN SUBLINGUAL 0.4 MG (NITROQUICK) TABLET SL PRN (13:45)
[2016-11-01] MEDS ORDERED: NON-FORMULARY MEDICATION 1 EA EA (Alendronate Sodium (Fosamax) 70 MG) PO SCH (13:45)
[2016-11-01] MEDS ORDERED: POLYETHYLENE GLYCOL 17 GM (MIRALAX) PACKET PO PRN (13:50)
[2016-11-01] MEDS ORDERED: ACETAMINOPHEN 500 MG TAB (TYLENOL) PO PRN (13:50)
[2016-11-01] MEDS ORDERED: LEVO750T39 PO (14:20)
[2016-11-01 15:23] VITALS: BP 143/72
--- NOTE | 2016-11-01 16:00 | NUR ---
MED REC COMPLETED-current med list obtained from Ext Med History application and previous medication reconciliation from discharge paperwork from [facility].
[2016-11-01] MEDS ORDERED: SIMETHICONE 40 MG/0.6 ML (MYLICON DROPS) ORAL SYRINGE PO PRN (16:35)
--- NOTE | 2016-11-01 16:53 | Progress Note-A/P (E) ---
Progress Note Subjective Subjective The patient returns after the transfer to [facility] and the cardiology service. She is here for reconditioning and intermediate care. She has a wound VAC in place that was applied by the surgeons there after her alejandro were removed. There was apparently significant separation of the skin edges along with tunneling and edema. She is currently doing well. The urinary catheter and left ureteral stent are still in place. Her stoma is draining thicker stool. She has had the current appliance on for at least two days without leaking. Objective VS Vital Signs Date Time Temp Pulse Resp B/P Pulse Ox O2 Delivery O2 Flow Rate FiO2 11/01/16 15:23 97.6 91 20 143/72 97 Room air Current Medications Current Medications Allopurinol 300 mg DAILY PO; Start 11/02/16 at 09:00 Amoxicillin/ Clavulanate Potassium 875 mg BID PO; Start 11/01/16 at 21:00; Stop 11/06/16 at 21:00 Cholecalciferol 1,000 unit DAILY PO; Start 11/02/16 at 09:00 Acetaminophen/ Hydrocodone Bitart 1 tab Q4H PRN PO; Start 11/01/16 at 13:45 Levofloxacin 750 mg DAILY@0700 PO; Start 11/02/16 at 07:00 Levothyroxine Sodium 50 mcg DAILY@07 PO; Start 11/02/16 at 07:00 Losartan Potassium 100 mg DAILY PO; Start 11/02/16 at 09:00 Magnesium Oxide 400 mg DAILY PO; Start 11/02/16 at 09:00 Pantoprazole 40 mg DAILY@07 PO; Start 11/02/16 at 07:00 Polyethylene Glycol 17 gm DAILY PRN PO; Start 11/01/16 at 13:50 Acetaminophen 500 mg Q4H PRN PO; Start 11/01/16 at 13:50 Zolpidem Tartrate 5 mg HS PRN PO; Start 11/01/16 at 13:50 Multivitamins/ Minerals Therapeutic 1 ea DAILY@0800 PO; Start 11/02/16 at 08:00 Lactobacillus Acidophilus 1 tab BID PO; Start 11/01/16 at 21:00 Calcium Citrate/ Cholecalciferol 1 tab DAILY PO; Start 11/02/16 at 09:00 Glucosamine/ Chondroitin 1 each BID PO; Start 11/01/16 at 21:00 Salmeterol Xinafoate/ Fluticasone 2 inhalations BID INH; Start 11/01/16 at 21:00 Simethicone 40 mg Q4HR PRN PO; Start 11/01/16 at 16:35; Status UNV General Awake, alert, no distress. Lungs No dyspnea Abdomen The wound VAC is in place over the laparotomy incision. The stoma is intact. Integumentary Warm, dry Neuro Grossly normal Assessment s/p sigmoid colectomy, repair of bladder fistula, and diverting loop ileostomy Postop NSTEMI Plan Continue the VAC with plans to change the dressing Friday. JOSELYN OLIVARES MD Nov 01, 2016 16:53
--- NOTE | 2016-11-01 17:04 | Physical Therapy Evaluation(E) ---
Plan of Care STG: Plan-Treatment Functional: Amb Safe w/ AD on level STG Time Frame: 4 Days LTG Time Frame: By Discharge Goals Discussed/Agreed: Yes Plan: Family Education, Neuro Re-Education, Progressive Ambulation, Staff Education, Strengthening, Transfer Training, Therapy Excercise Discharge Recommendations: Caregiver support (with assistance to manage ileostomy prn via home health services, additional therapy services as needed at time of d/c) Aware of Dx and Prognosis: Yes Aware of Risk & Benefit: Yes To be Seen: Daily Friday-Friday Initial Evaluation Service Date/Time 11/01/16, 17:02 Primary Diagnosis: (1) Esophagogastroduodenoscopy (2) Ileostomy in place ICD Code: Z93.2 (3) Hypothyroidism (acquired) ICD Code: E03.9 (4) Postoperative ileus ICD Code: K91.3 (5) Hypertensive urgency ICD Code: I16.0 (6) Diverticulitis (7) Status post colectomy ICD Code: Z90.49 Treatment Diagnosis: (1) Leukocytosis ICD Code: D72.829 (2) Anemia ICD Code: D64.9 (3) Ileostomy in place ICD Code: Z93.2 (4) Hypertensive urgency ICD Code: I16.0 (5) Chest pain ICD Code: R07.9 (6) Hypothyroidism (acquired) ICD Code: E03.9 (7) Postoperative ileus ICD Code: K91.3 Onset Date: 10/19/2016 Start of Care Date: Nov 01, 2016 Resuscitation Status: Full Code Fall Level: Low Risk 25-50 Initial Assessment Reason for Rehab: Increase Mobility, Increase Strength, Increase Balance, Increase Transfers, Increase Endurance Medical History: CT, Other (Bilateral TKA, RLE debridement. Preseence of ileostomy, burt catheter, wound vac) Pain Location/Comment Patient denied pain. Prior Level of Function The patient lives at home with her . Independent with ambulation, ADLs, tub/shower combo. 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 6 grown children that are supportive. Rehabilitation Potential: Good Assistive Device: FWW Distance Walked in Feet 400 feet Assist: Min Assist/Contact Guard Gait Description: Safe w/ Assistive Device Gait Limitations: Fatigue ROM/Strength Hip Mobility: Right Hip Strength: 4+ Left Hip Strength: 4+ Knee Flexion Mobility: Right Knee Flexion Strength: 5 Left Knee Flexion Strength: 5 Knee Extension Mobility: Right Knee Extension Strength: 5 Left Knee Extension Strength: 5 Ankle Mobility: Right Ankle Strength: 5 Left Ankle Strength: 5 Assessment/Goals Initial Transfer Assessment Rolling: Supervision or setup Sit-Supine: Supervision or setup Sitting Edge of Bed: Supervision or setup Supine-Sit: Supervision or setup Sit-Stand from Bed: Contact Guard Assist Stand-Sit: Contact Guard Assist Ambulation: Contact Guard Assist Distance Walked in Feet 400 feet with FWW Comment Patient has burt catheter, wound vac, ileostomy. Transfer Short Term Goals Rolling: Complete [place] Sit-Supine: Complete [place] Supine-Sit: Complete [place] Sit-Stand from bed: Modified [place] Stand-Sit: Modified [place] Ambulation: Modified [place] Distance to Walk in Feet A minimum of 700 feet with FWW Comment Additional short term goals: 1) Patient will improve standing tolerance to a minimum of 10 minutes prior to needing a seated rest break. 2) Patient will scores a minimum of 21/28 on the Tinetti balance assessment. Transfer Revenue Research Analyst Goals Sit-Stand from bed: Complete [place] Stand-Sit: Complete [place] Ambulation: Complete [place] Distance to Walk in Feet 300 feet without AD, and 1000 feet with FWW. Comment 1) Patient will traverse 4 steps with use of bilateral hand rails to safely enter/exit her home. 2) Patient will complete 20 minutes of therapeutic activities without a rest break to demonstrate improved activity tolerance. Treatments Treatments Sit, Stand, Supine: Sitting Extremity: Both Lower Extremity Assistance: AROM Repetition: 2 x 10 Exercise: AP, LAQ, Hip Flexion Ambulation Weight Bearing Status: Full Assistive Device: FWW Gait Assist: Min Assist/Contact Guard Transfer training working on bed mobility without increasing intraabdominal pressure. Coding Time In: 1438 Time Out: 1525 Total Minutes: 47 Charges: 28957 Eval< 20 min, 00145 Exercise Therp 15 m, 93182 Ther Activity GABRIELA CARTER PT Nov 01, 2016 17:04
--- NOTE | 2016-11-01 18:03 | History and Physical (E) ---
History & Physical PCP: Justin Mcgee MD [facility] pt. is here for rehab and wound care. HPIpt was a patient who had elective surgery here on October 10,namely repair of a colovesical fistulamand insertion of a left uretural stent. WHile recuperating post surgery she had a small nonstemi and we elected to transfer her to [place] at her request. PMHcolovesical fistula nonstemi left ureteral stent anemia secondary to blood loss hypertension asthma hypothyroidism morbid obesity PSH sigmoid colectomy september of 2016 ALLERGIES: Please see list at end of report. HOME MEDICATIONS: Please see list at end of report. FH non contributory SH patient is ,retired and has 8 grandchildren ROS CONSTITUTION: Denies weight loss or gain. Denies fever or chills. HEENT: No change in vision or hearing. No sores in mouth, sore throat. CV: No chest pain, palpitations. PULM: No cough, shortness of breath, difficulty breathing. GI: No upset stomach, nausea, vomiting, constipation, or diarrhea. No blood in stool.abdomen is a little tender she says. : No dysuria. No blood in urine. MS: No new muscle or joint aches and pains. NEURO: No numbness or tingling. No weakness. INTEG: No rashes, lesions, or sores. ENDO: No heat or cold intolerance. No polydipsia or polyuria. HEME/LYMPH: No easy bruising or bleeding. No swollen glands. PSYCH: No change in mood or behavior. OBJECTIVE GEN: Awake, alert, oriented, NAD HEENT: EOMI, PERRL, moist oral mucosa. CV: RRR S1 S2 normal with no murmur LUNGS: CTA B ABD: Soft, NT/ND with normal bowel sounds. EXTR: No C/C/E. Normal peripheral pulses. INTEG: No rash. NEURO: No focal motor neuro deficit. Weight: 93.5 kg LABS n/a MICRO n/a IMAGING n/a ASSESSMENT s/p colovesical fistula repair ;left ureteral stent s/p nonstemi anemia of blood loss wound vac in place Plan: strengthening and rehabilitation with concurrent wound care;pt and ot therapy already functioning Allergies/Home Medications Allergies: Coded Allergies: adhesive (Verified Allergy, Unknown, 10/09/16) lisinopril (Verified Allergy, Unknown, 10/09/16) meloxicam (Verified Allergy, Unknown, 09/13/16) increases creatinine tetanus toxoid, adsorbed (Verified Allergy, Unknown, 09/12/16) Reported Home Medications Scheduled Alendronate Sodium (Fosamax) 70 MG PO Every Friday (Reported) Allopurinol (Allopurinol) 300 MG PO DAILY (Reported) Amoxicillin/Clavulanate Potassium (Augmentin 875mg/125mg) 1 TAB PO BID (Reported ) Budesonide/Formoterol Fumarate (Symbicort 160-4.5 mcg Inhaler) 2 PUFF IH BID ( Reported) Calcium Citrate/Vitamin D3 (Citracal + D Caplet) 1 EACH PO DAILY (Reported) Cholecalciferol (Vitamin D3) (Vitamin D3) 1,000 UNIT PO DAILY (Reported) Gluc 2KCL/Chondr/[place] Hy/Hy Ac (Glucosamine & Chondroitin Cap) 1 EACH PO BID ( Reported) Lactobacillus Combination No.4 (Probiotic) 1 EACH PO BID (Reported) Levofloxacin (Levaquin) 750 MG PO DAILY (Reported) Levothyroxine Sodium (Levothyroxine Sodium) 50 MCG PO DAILY (Reported) Losartan Potassium (Losartan Potassium) 100 MG PO DAILY (Reported) Magnesium Oxide (Magnesium Oxide) 400 MG PO DAILY (Reported) Metoprolol Tartrate (Metoprolol Tartrate) 25 MG PO BID WITH MEALS (Reported) Multivitamin (Multi-Day Vitamins) 1 TAB PO DAILY (Reported) Nitroglycerin (Nitroquick) 0.4 MG SL NEEDED (Reported) Om-3/Dha/Epa/Fish Oil/Vit D3 (Fish Oil + Vitamin D-3 Softgel) 1 EACH PO DAILY ( Reported) Pantoprazole Sod (Protonix Tab) 40 MG PO DAILY (Reported) Phenol/Sodium Phenolate (Phenaseptic Liquid) Unknown Dose TOP NEEDED ( Reported) Simethicone (Simethicone) 80 MG PO NEEDED (Reported) Scheduled PRN Hydrocodone/Acetaminophen ([place] 5mg/325mg) 1 TAB PO Q4H PRN PRN PAIN (Reported ) Naproxen (Naproxen) 2 TAB PO Q4H PRN PRN PAIN (Reported) Discontinued Medications ([levaquin ]) 750 MG PO DAILY (Reported) Discontinued Reason: Course completed Carvedilol (Coreg) 12.5 MG PO BID (Reported) Discontinued Reason: Course completed Levofloxacin (Levofloxacin) 750 MG PO DAILY (Reported) Copies to: End of Report . BLAYNE GOMES DO Nov 01, 2016 18:03
[2016-11-01] MEDS: SIMETHICONE 40 MG/0.6 ML (MYLICON DROPS) ORAL SYRINGE PO PRN ×2 (18:25→22:20)
[2016-11-01] MEDS: meTOprolol TARTRATE 25 MG (LOPRESSOR) TABLET PO SCH (18:25)
--- NOTE | 2016-11-01 18:30 | NUR ---
PRN Mylicon drops given at this time per pt request. Denies other needs. Pt is sitting up in chair. Nuria patent to DD. Skin WDI. Resprs nonlabored, even on RA. Call light within reach.
[2016-11-01] MEDS: ACIDOPHILUS/LACTOBACILLUS SPOROGENES 1 TABLET PO SCH (20:04)
[2016-11-01] MEDS: AMOXICILLIN/CLAVULANATE 875MG-125MG (AUGMENTIN) TABLET PO SCH (20:04)
[2016-11-01] MEDS: GLUCOSAMINE/CHONDROITIN 500MG-400MG CAPSULE PO SCH (20:04)
[2016-11-01] MEDS ORDERED: LACTOBACILLUS COMBINATION NO 4 PO SCH (21:00)
[2016-11-01] MEDS ORDERED: [UNRECOGNIZED DRUG - OTHER] PO SCH (21:00)
[2016-11-01] MEDS: HYDROcodone/APAP 5 MG/325 MG (NORCO) TAB PO PRN (22:20)
--- NOTE | 2016-11-01 22:20 | NUR ---
[place] 5 (1) PO given for pain rated "4". Mylicon drops/40 mg also administered per request. Pt. is resting in recliner; watching tv; resp are even and unlabored on room air. Pt. is very pleasant and cooperative. Wound vac secure; call light and H2O within reach.
[2016-11-02 00:34] VITALS: BP 111/54
--- NOTE | 2016-11-02 02:10 | NUR ---
Ostomy appliance leaking; removed and area cleaned; new appliance positioned and placed. Pt. tolerated procedure well. Output is both liquid and formed particles; continual output noted.
[2016-11-02] MEDS: HYDROcodone/APAP 5 MG/325 MG (NORCO) TAB PO PRN ×2 (02:51→22:57)
[2016-11-02] MEDS: SIMETHICONE 40 MG/0.6 ML (MYLICON DROPS) ORAL SYRINGE PO PRN ×4 (02:51→22:57)
--- NOTE | 2016-11-02 02:52 | NUR ---
[place] 5 (1) PO given for pain rated "4". Mylicon 40 mg given for 'gas'. New appliance is leaking; removed; skin prepared carefully; Gloria/Projection Camera Operator giving assistance with procedure.
[2016-11-02] MEDS: PANTOPRAZOLE 40 MG (PROTONIX) TAB PO SCH (06:49)
[2016-11-02] MEDS: LEVOTHYROXINE 50 MCG (LEVOTHROID) TABLET PO SCH (06:49)
[2016-11-02] MEDS: LEVOFLOXACIN 750 MG TAB (LEVAQUIN) PO SCH (06:49)
--- NOTE | 2016-11-02 06:50 | NUR ---
Pt. takes PO meds without difficulty; latest ostomy appliance secure; burt to gravity; wound vac attached and operational. Pt. is pleasant and cooperative; jokes with staff. Call light and H2O within reach.
[2016-11-02 07:24] VITALS: BP 125/55
[2016-11-02] MEDS: meTOprolol TARTRATE 25 MG (LOPRESSOR) TABLET PO SCH ×2 (08:55→17:51)
[2016-11-02] MEDS: ACIDOPHILUS/LACTOBACILLUS SPOROGENES 1 TABLET PO SCH ×2 (08:55→21:07)
[2016-11-02] MEDS: ALLOPURINOL 300 MG (ZYLOPRIM) TAB PO SCH (08:55)
[2016-11-02] MEDS: MULTIVITAMIN W/MINERALS (THERAGRAN M) TABLET PO SCH (08:55)
[2016-11-02] MEDS: MAGNESIUM OXIDE 400 MG (MAG-OX) TAB PO SCH (08:55)
[2016-11-02] MEDS: CHOLECALCIFEROL 1000 INT UNITS (VITAMIN D3) TABLET PO SCH (08:56)
[2016-11-02] MEDS: GLUCOSAMINE/CHONDROITIN 500MG-400MG CAPSULE PO SCH ×2 (08:56→21:06)
[2016-11-02] MEDS: AMOXICILLIN/CLAVULANATE 875MG-125MG (AUGMENTIN) TABLET PO SCH ×2 (08:56→21:06)
[2016-11-02] MEDS: LOSARTAN 100 MG (COZAAR) TABLET PO SCH (08:56)
[2016-11-02] MEDS: CALCIUM CITRATE/VITAMIN D3 315MG/250IU (CALCITRATE +D) TABLET PO SCH (08:56)
[2016-11-02] MEDS ORDERED: MULTIVITAMIN PO SCH (09:00)
[2016-11-02] MEDS ORDERED: CALCIUM CITRATE PO SCH (09:00)
[2016-11-02] MEDS ORDERED: [UNRECOGNIZED DRUG - OTHER] PO SCH (09:00)
[2016-11-02] MEDS: FLUTICASONE/SALMETEROL HFA 230/21 MCG (ADVAIR) COMMON CANNISTER INH SCH ×3 (09:00→23:55)
[2016-11-02] MEDS ORDERED: VITAMIN D3 PO SCH (09:00)
--- NOTE | 2016-11-02 09:30 | NUR ---
c/o dizziness when standing with PT. Reported to Dr. Acosta.
--- NOTE | 2016-11-02 10:45 | PT Daily Note Inpatient (E) ---
PT Daily Treatment Service Date/Time 11/02/16, 10:37 Medical Diagnosis: (1) Esophagogastroduodenoscopy (2) Ileostomy in place ICD Code: Z93.2 (3) Hypothyroidism (acquired) ICD Code: E03.9 (4) Postoperative ileus ICD Code: K91.3 (5) Hypertensive urgency ICD Code: I16.0 (6) Diverticulitis (7) Status post colectomy ICD Code: Z90.49 Physical Therapy: (1) Leukocytosis ICD Code: D72.829 (2) Anemia ICD Code: D64.9 (3) Ileostomy in place ICD Code: Z93.2 (4) Hypertensive urgency ICD Code: I16.0 (5) Chest pain ICD Code: R07.9 (6) Hypothyroidism (acquired) ICD Code: E03.9 (7) Postoperative ileus ICD Code: K91.3 Precaution/Isolation: Standard Precautions Resuscitation Status: Full Code Fall Level: Low Risk 25-50 Subjective Patient resting in chair, motivated to participate in therapy. She denies pain this date as she had a pain pill this AM. Per her report she started her home medications recently including two blood pressure medications. Oxygen Delivery: Room air Treatments Sit, Stand, Supine: Sitting Extremity: Both Lower Extremity Resistance: Red Band Exercise: AP, LAQ, Other (knee flexion AROM) Comment Therapeutic rest breaks provided between sets secondary to patient reporting increased discomfort in abdomen. Transfers Sit-Stand from bed: Contact Guard Assist Stand-Sit: Contact Guard Assist Gait Intended to complete ambulation this date however on two separate occasions patient stood up and experienced dizziness that did not resolve within a minute. REFUELING RAMP SUPERVISOR notified and reported they will take orthostatic BP during next vital assessment. HR 95 bpm, 02 saturation 98% throughout standing. Education/Plan Education Education Needs: Use of Devices/Equipment (Securing wound vac so that the machine stays neutral, unlocking secure bar. Pt educated on our plan for physical therapy and goals we will be working towards. ) Education also provided on food options to assist patient in improving her nutrition, as she reports she is having difficulty finding things that taste good to her. Assessment Patient completed seated exercise without difficulty, however ambulation not completed this date secondary to patient standing on two occasions and felt dizzy/light headeded. Plan Progress ambulation and standing activities next week per patient tolerance. May have patient go to rehabilitation department to get her out of room more. Patient will be seen: Daily Friday-Friday Coding Time In: 925 Time Out: 1017 Total Minutes: 52 Charges: 07435 Exercise Therp 15 m, 72001 Ther Activity Patient resting in chair with LE elevated, wound vac running in a more neutral position on bed rail, call light and tray table in reach. GABRIELA CARTER PT Nov 02, 2016 10:45
--- NOTE | 2016-11-02 11:30 | NUR ---
Simethicone given per patient request.
[2016-11-02 12:00] VITALS: BP_SYST 112; BP_SYST 140; BP_SYST 148; BP_DIAS 70; BP_DIAS 74
[2016-11-02 16:00] VITALS: BP 120/60
--- NOTE | 2016-11-02 18:30 | NUR ---
Has had few complaints today. Walks in [place] this evening with aide. Tolerates well and states, "It feels good." Has had no further complaints of dizziness today.
--- NOTE | 2016-11-02 20:00 | NUR ---
Resting in recliner chair. Legs elevated. Quiñones cath drains cloudy yellow urine. Wound vac to midline abdominal incision intact and functioning to low continuous suction. Ileostomy bag intact draining brownish liquid stool. Skin in abdominal crease reddened. Cleansed with warm water and patted dry. Denies pain or discomfort at this time. States the Mylicon liquid does help her burp. Takes liquids without difficulty. Call light within reach.
[2016-11-02] MEDS: ZOLPIDEM 5 MG (AMBIEN) TAB PO PRN (22:57)
--- NOTE | 2016-11-02 22:57 | NUR ---
[place] 5mg administered for generalized discomfort. HS cares given. Ambien also given per request.
[2016-11-02 23:13] VITALS: BP 125/61
--- NOTE | 2016-11-03 01:30 | NUR ---
Patient moved to room 307 as the patient next door was disrupting her. He would not turn his TV down, and verbalizes loudly.
[2016-11-03] MEDS: HYDROcodone/APAP 5 MG/325 MG (NORCO) TAB PO PRN ×5 (02:40→23:01)
--- NOTE | 2016-11-03 02:40 | NUR ---
[place] 5mg administered for generalized discomfort.
--- NOTE | 2016-11-03 04:10 | NUR ---
Patient called and seal on Ileostomy bag leaking. Old bag removed. Area around stoma excoriated. Cleansed area with stoma cabin cleaner and patted dry. Gloria AVERY assisted. Place skin barrier prep pad solution around stoma site. Place new Ileostomy bag on without difficulty. Patient comfortable at present. Call light within reach.
[2016-11-03] MEDS: LEVOFLOXACIN 750 MG TAB (LEVAQUIN) PO SCH (06:29)
[2016-11-03] MEDS: SIMETHICONE 40 MG/0.6 ML (MYLICON DROPS) ORAL SYRINGE PO PRN (06:29)
[2016-11-03] MEDS: PANTOPRAZOLE 40 MG (PROTONIX) TAB PO SCH (06:29)
[2016-11-03] MEDS: LEVOTHYROXINE 50 MCG (LEVOTHROID) TABLET PO SCH (06:29)
--- NOTE | 2016-11-03 07:01 | NUR ---
Rested well tonight. Ostomy bag leaking. Only had to change bag. Skin care done to abdominal fold. Skin barrier creme applied. No discomforts at this time. Pleasant. Wound vac intact and functioning well. Call light within reach.
[2016-11-03] MEDS: FLUTICASONE/SALMETEROL HFA 230/21 MCG (ADVAIR) COMMON CANNISTER INH SCH ×2 (07:48→19:40)
--- NOTE | 2016-11-03 07:52 | NUR ---
Pt found lying in bed on RA, SPO2 98%, HR 78, RR 14 and non labored with clear BS before and after 2p Advair 230/21 via Spacer. Mouth rinsed post tx.
--- NOTE | 2016-11-03 07:54 | NUR ---
Report received, care of pt assumed, pt awake, denies pain, dyspnea or needs at present. Call light in reach, will round frequently for cares.
[2016-11-03 08:00] VITALS: BP 119/49
[2016-11-03] MEDS: CHOLECALCIFEROL 1000 INT UNITS (VITAMIN D3) TABLET PO SCH (08:48)
[2016-11-03] MEDS: CALCIUM CITRATE/VITAMIN D3 315MG/250IU (CALCITRATE +D) TABLET PO SCH (08:48)
[2016-11-03] MEDS: meTOprolol TARTRATE 25 MG (LOPRESSOR) TABLET PO SCH ×2 (08:48→18:12)
[2016-11-03] MEDS: MULTIVITAMIN W/MINERALS (THERAGRAN M) TABLET PO SCH (08:48)
[2016-11-03] MEDS: ACIDOPHILUS/LACTOBACILLUS SPOROGENES 1 TABLET PO SCH ×2 (08:48→20:32)
[2016-11-03] MEDS: AMOXICILLIN/CLAVULANATE 875MG-125MG (AUGMENTIN) TABLET PO SCH ×2 (08:48→20:32)
[2016-11-03] MEDS: GLUCOSAMINE/CHONDROITIN 500MG-400MG CAPSULE PO SCH ×2 (08:48→20:32)
[2016-11-03] MEDS: LOSARTAN 100 MG (COZAAR) TABLET PO SCH (08:48)
[2016-11-03] MEDS: MAGNESIUM OXIDE 400 MG (MAG-OX) TAB PO SCH (08:48)
[2016-11-03] MEDS: ALLOPURINOL 300 MG (ZYLOPRIM) TAB PO SCH (08:48)
--- NOTE | 2016-11-03 12:45 | NUR ---
Dr. Cornell calls in, will be in to change wound vac dressing between [id number].
[2016-11-03] MEDS ORDERED: SODIUM CHLORIDE 0.9% NEB SOLN 3 ML VIAL IH PRN (12:50)
--- NOTE | 2016-11-03 14:00 | NUR ---
Dr. Cornell here for wound vac dressing change. Removed wound vac foam dressing and decides to change therapy, will start to do dressing changes TID by nursing staff, see orders. Pt tolerated well. Would like to rest this afternoon, will call for needs.
[2016-11-03] MEDS ORDERED: WATER, FOR IRRIGATION 1000 ML POUR BOTTLE ONE (14:13)
--- NOTE | 2016-11-03 14:23 | Progress Note-A/P (E) ---
Progress Note Subjective Subjective I removed the VAC dressing today to check her wound. She has had some leakage at her ileostomy appliance this weekend; it has been changed the last couple of nights. Otherwise she's doing OK. Ambulating without difficulty. Objective VS Vital Signs Date Time Temp Pulse Resp B/P Pulse Ox O2 Delivery O2 Flow Rate FiO2 11/03/16 08:00 96.4 72 16 119/49 97 Room air Current Medications Current Medications Allopurinol 300 mg DAILY PO Last administered on 11/03/16 08:48; Admin Dose 300 MG; Start 11/02/16 at 09:00 Amoxicillin/ Clavulanate Potassium 875 mg BID PO Last administered on 11/03/16 08:48; Admin Dose 875 MG; Start 11/01/16 at 21:00; Stop 11/06/16 at 21:00 Cholecalciferol 1,000 unit DAILY PO Last administered on 11/03/16 08:48; Admin Dose 1,000 UNIT; Start 11/02/16 at 09:00 Levofloxacin 750 mg DAILY@0700 PO Last administered on 11/03/16 06:29; Admin Dose 750 MG; Start 11/02/16 at 07:00 Levothyroxine Sodium 50 mcg DAILY@07 PO Last administered on 11/03/16 06:29; Admin Dose 50 MCG; Start 11/02/16 at 07:00 Losartan Potassium 100 mg DAILY PO Last administered on 11/03/16 08:48; Admin Dose 100 MG; Start 11/02/16 at 09:00 Magnesium Oxide 400 mg DAILY PO Last administered on 11/03/16 08:48; Admin Dose 400 MG; Start 11/02/16 at 09:00 Pantoprazole 40 mg DAILY@07 PO Last administered on 11/03/16 06:29; Admin Dose 40 MG; Start 11/02/16 at 07:00 Multivitamins/ Minerals Therapeutic 1 ea DAILY@0800 PO Last administered on 11/03 08:48; Admin Dose 1 EA; Start 11/02/16 at 08:00 Lactobacillus Acidophilus 1 tab BID PO Last administered on 11/03/16 08:48; Admin Dose 1 TAB; Start 11/01/16 at 21:00 Calcium Citrate/ Cholecalciferol 1 tab DAILY PO Last administered on 11/03/16 08:48; Admin Dose 1 TAB; Start 11/02/16 at 09:00 Glucosamine/ Chondroitin 1 each BID PO Last administered on 11/03/16 08:48; Admin Dose 1 EACH; Start 11/01/16 at 21:00 Salmeterol Xinafoate/ Fluticasone 2 inhalations BID INH Last administered on 07:48; Admin Dose 2 INH; Start 11/01/16 at 21:00 Simethicone 40 mg Q2H PRN PO Last administered on 11/03/16 06:29; Admin Dose 40 MG; Start 11/01/16 at 18:00 General Awake, alert, no distress. Lungs No dyspnea Abdomen The underlying wound consists of beefy red granulation tissue. Most of the cavity is filled in except at the inferior aspect, where there is a small sinus tunneling back about 2cm or so. This was packed with saline-soaked gauze and the wound was covered with saline-soaked 2x2, along with a small piece of Telfa at the superior aspect, above a skin bridge that has healed. The whole thing was then covered with dry 4x4s and tape. Integumentary Warm, dry Neuro Grossly normal Assessment s/p sigmoid colectomy, repair of bladder fistula, and diverting loop ileostomy Postop NSTEMI Plan DC Vac and continue packing and dressing changes q shift and prn. If there is persistent leakage from the stoma, we should consider early closure of the ileostomy, provided a barium enema shows that the anastomosis is intact. JOSELYN OLIVARES MD Nov 03, 2016 14:23
[2016-11-03 15:42] VITALS: BP 124/59
--- NOTE | 2016-11-03 22:00 | NUR ---
Resting in recliner wanting to get ready for sleep. Colostomy bag emptied with a small amount of brown liquid stool. Bag cleansed per nurse aide. Skin in abdominal fold less pink than last night. Areas cleansed with warm NS and patted dry. Light coating of barrier creme applied. Place clean pillow case place in fold area per patient request. Dressing changed to midline incision per Drs orders. Patient tolerated well. Patient pleasant and cooperative with cares.
[2016-11-03] MEDS: ZOLPIDEM 5 MG (AMBIEN) TAB PO PRN (23:00)
--- NOTE | 2016-11-03 23:00 | NUR ---
[place] 5mg and Ambien 5mg administered per patient request. Quiñones patent draining cloudy yellow urine. Ready for sleep. Call light within reach.
[2016-11-03 23:54] VITALS: BP 112/55
[2016-11-04] MEDS: LEVOTHYROXINE 50 MCG (LEVOTHROID) TABLET PO SCH (06:14)
[2016-11-04] MEDS: LEVOFLOXACIN 750 MG TAB (LEVAQUIN) PO SCH (06:14)
[2016-11-04] MEDS: PANTOPRAZOLE 40 MG (PROTONIX) TAB PO SCH (06:14)
--- NOTE | 2016-11-04 06:19 | NUR ---
Resting in bed. Rested well tonight. pleasant and cooperative with cares. Ileostomy bag intact and functioning well. Abdominal dressing dry and intact. Denies any discomforts at this time. Pleasant. Takes po fluids and food without difficulty. Comfortable at present. Call light within reach.
[2016-11-04] MEDS: FLUTICASONE/SALMETEROL HFA 230/21 MCG (ADVAIR) COMMON CANNISTER INH SCH ×2 (07:48→20:50)
[2016-11-04 08:08] VITALS: BP 125/52
[2016-11-04] MEDS: CALCIUM CITRATE/VITAMIN D3 315MG/250IU (CALCITRATE +D) TABLET PO SCH (08:23)
[2016-11-04] MEDS: AMOXICILLIN/CLAVULANATE 875MG-125MG (AUGMENTIN) TABLET PO SCH ×2 (08:23→23:04)
[2016-11-04] MEDS: ACIDOPHILUS/LACTOBACILLUS SPOROGENES 1 TABLET PO SCH ×2 (08:23→23:03)
[2016-11-04] MEDS: MAGNESIUM OXIDE 400 MG (MAG-OX) TAB PO SCH (08:23)
[2016-11-04] MEDS: MULTIVITAMIN W/MINERALS (THERAGRAN M) TABLET PO SCH (08:23)
[2016-11-04] MEDS: GLUCOSAMINE/CHONDROITIN 500MG-400MG CAPSULE PO SCH ×2 (08:23→23:04)
[2016-11-04] MEDS: meTOprolol TARTRATE 25 MG (LOPRESSOR) TABLET PO SCH ×2 (08:23→17:17)
[2016-11-04] MEDS: LOSARTAN 100 MG (COZAAR) TABLET PO SCH (08:24)
[2016-11-04] MEDS: ALLOPURINOL 300 MG (ZYLOPRIM) TAB PO SCH (08:24)
[2016-11-04] MEDS: CHOLECALCIFEROL 1000 INT UNITS (VITAMIN D3) TABLET PO SCH (08:24)
[2016-11-04 08:29] VITALS: BP 125/52
[2016-11-04] MEDS ORDERED: DOCUSATE SODIUM 100 MG (COLACE) CAP PO PRN (08:40)
--- NOTE | 2016-11-04 08:52 | NUR ---
NUTRITION ASSESSMENT Level 1 Patient: Karol Valladares Age/Sex: 66/F Date Screened: 11-04-16 Weight: 205.7#/93.5 kg Height: 62 inches Primary Diagnosis: swing bed/wound care Diet Order: regular Relevant labs: N/A Food allergies: N Nutrition Assessment Criteria Age over 80: N Body Mass Index (BMI) under 19: N Admission Screening Indicates Risk? 6 points Moderate/High Risk Diagnosis: 6 points TPN or PPN: N NPO or clear liquid diet: N Serum Glucose <70 or >180: N/A Hgb A1c >6.7: N/A Total: 12 points Risk Screen: __ Patient at low nutritional risk based on available data; reevaluate in 5-7 days __ Patient at moderate nutritional risk based on available data; reevaluate in 3-5 days _X_ Patient at high nutritional risk; complete Nutrition Assessment within 48 hours of admission.
--- NOTE | 2016-11-04 09:43 | Progress Note (E) ---
Progress Note SUBJECTIVE Admitted to long-term 11/01 after colovesicular fistula repair and left ureteral stenting 10/10. She had been recovering here after surgery but suffered NSTEMI and was transferred to [place]. She had to have wound vac applied to her surgical site because of separation of skin edges. She returned here for long-term care. Since admit, has had her wound vac D /C'd 11/03 but surgery. Surgery monitoring other wound care. Vitals stable. On room air. Remains on levofloxacin and amox/clav. States stool output from ostomy is more solid than before. Abdominal pain well-controlled with hydrocodone/acetaminophen. Discussed findings, plan of care. Regarding cardiology care, had an echo but not a heart cath. No clinical reimbursement specialist notes in outside records on chart. Requesting copy of her echo since she has a murmur, which is reportedly not new. OBJECTIVE Vital Signs Date Time Temp Pulse Resp B/P Pulse Ox O2 Delivery O2 Flow Rate FiO2 11/03/16 23:54 97.6 78 16 112/55 98 Room air I & O 11/03/16 11/04/16 Cumulative From/Thru 19:00 07:00 11/01/16 11:40 - 11/04/16 06:01 Intake Total 750 ml 3785 ml Output Total 400 ml 1325 ml 5675 ml Balance -400 ml -575 ml -1890 ml GEN: Awake, interactive, oriented. NAD at present. HEENT: EOMI, clear sclerae, moist oral mucosa. CV: Regular with prominent III/ systolic murmur, early, crescendo, loudest at left upper sternal border. PULM: CTA B with no R/R/W. ABD: Soft, NT/ND with active bowel sounds. Ileostomy intact. Dressing to abdominal wound intact. EXTR: Trace ankle edema. INTEG: Age related changes. Mild pallor. NEURO: No focal motor neuro deficit. LABS: None IMAGING: None ASSESSMENT Karol Valladares is a 66 year old female admitted as a transfer from [facility] 11/01 for long-term care after surgery 10/10 for colovesicular fistula repair and left ureteral stenting, NSTEMI, wound dehiscence now with wound vac, now in long-term for close medical supervision of her resolving acute medical problems as well as PT/OT for deconditioning. PLAN * Deconditioning: PT/OT eval and treat. * Surgical Wound Dehiscence: Wound vac. Dressing changes managed per surgery. Amoxicillin/clavulanate, levofloxacin. * Colovesicular Fistula Repair, Diverticulitis, Recurrent UTI: S/P left ureteral stenting and ileostomy. Stoma cares per protocol. Surgery following. Amoxicillin/clavulanate, levofloxacin. * Abdominal Pain: * Heart Murmur: Request echo from [facility]. Is supposed to follow-up with clinical reimbursement specialist there in 6 months. * F/E/N: Regular * Prophylaxis: SCD * Code Status: Full * Dispo: Skilled care for above issues. RESOLVING ISSUES * NSTEMI: Attributed to demand ischemia. Request echo from [facility]. Is supposed to follow-up with clinical reimbursement specialist there in 6 months. CHRONIC ISSUES * GERD: Pantoprazole * Hypothyroidism: Levothyroxine * COPD: Fluticasone/salmeterol * Gout: Allopurinol * Pain: Hydrocodone/acetaminophen * Constipation: Bowel regimen * HTN: Losartan, metoprolol * Insomnia: Zolpidem * CKD Stage III: Reportedly stable. Avoid nephrotoxic agents. CASSIDY HUFF MD Nov 04, 2016 09:00
[2016-11-04] MEDS: HYDROcodone/APAP 5 MG/325 MG (NORCO) TAB PO PRN ×2 (10:22→23:04)
--- NOTE | 2016-11-04 11:44 | PT Daily Note Inpatient (E) ---
PT Daily Treatment Service Date/Time 11/04/16, 11:40 Medical Diagnosis: (1) Esophagogastroduodenoscopy (2) Ileostomy in place ICD Code: Z93.2 (3) Hypothyroidism (acquired) ICD Code: E03.9 (4) Postoperative ileus ICD Code: K91.3 (5) Hypertensive urgency ICD Code: I16.0 (6) Diverticulitis (7) Status post colectomy ICD Code: Z90.49 Physical Therapy: (1) Leukocytosis ICD Code: D72.829 (2) Anemia ICD Code: D64.9 (3) Ileostomy in place ICD Code: Z93.2 (4) Hypertensive urgency ICD Code: I16.0 (5) Chest pain ICD Code: R07.9 (6) Hypothyroidism (acquired) ICD Code: E03.9 (7) Postoperative ileus ICD Code: K91.3 Precaution/Isolation: Standard Precautions Resuscitation Status: Full Code Fall Level: Low Risk 25-50 Subjective Pt resting in bed. Agrees to therapy. Oxygen Delivery: Room air Treatments Sit, Stand, Supine: Supine Extremity: Both Lower Extremity Assistance: AAROM, AROM Repetition: 1 x 20 Exercise: AP, QS, GS, Heel Slides, Hip Abduction, SLR, Bridge Transfers Rolling: Complete [place] Education/Plan Education Education also provided on food options to assist patient in improving her nutrition, as she reports she is having difficulty finding things that taste good to her. Assessment Pt tolerated exercise well with no difficulty. Plan Patient will be seen: Daily Friday-Friday Coding Time In: 11:23 Time Out: 11:43 Total Minutes: 20 Charges: 73813 Exercise Therp 15 m (20 minutes) Jerad Raza BOAT HOIST OPERATOR HELPER Nov 04, 2016 11:44
--- NOTE | 2016-11-04 11:50 | NUR ---
Pt indep in room using walker. Changed dressing to abd per Dr. Cornell orders- Dr. Helms came to room to assess wound. Pt tolerated dressing change without c/o. Dracut 5mg PO given for pre-med to working with Jerad Johnson PT. This nurse emptied Ileostomy- medium soft dark green BM and granddaughter at bedside. Calls appropriately for assist. Will cont to monitor.
--- NOTE | 2016-11-04 14:03 | OT Daily Note Inpatient (E) ---
OT Daily Treatment Service Date/Time 11/04/16, 14:02 Primary Diagnosis: (1) Esophagogastroduodenoscopy (2) Ileostomy in place ICD Code: Z93.2 (3) Hypothyroidism (acquired) ICD Code: E03.9 (4) Postoperative ileus ICD Code: K91.3 (5) Hypertensive urgency ICD Code: I16.0 (6) Diverticulitis (7) Status post colectomy ICD Code: Z90.49 Treatment Diagnosis: (1) Weakness ICD Code: R53.1 Onset Date: 10/28/16 Start of Care Date: Nov 04, 2016 Precaution/Isolation: Standard Precautions Fall Level: Low Risk 25-50 Resuscitation Status: Full Code Current Activity: Agrees to participate Pt reports feeling pretty good. States she is now able to get in and out of bed on her own. [place] very weak and needed help last week. Pain Level: 0 Oxygen Needed: Room air Current Function Assessment Mental Status Patient Orientation: Person Mental Status: Alert Cognition Attention: Intact Memory: Intact Safety/Judgement: Intact Endurance Activity Endurance: Fair, Requires freq rest breaks Bed Mobility/Transfers Sit to Stand: CGA Treatments Gross Motor Skill Exercise U E Gross Motor Skills U E : Comment Therapist completed the activity assessment with pt to assess the activities pt enjoys. Provided pt with magazines following session. Pt complete sit to stand transfer with CGA. Participated in balance and coordination activity in standing. Pt able to complete with no noted LOB. Completed functional mobility around room with use of FWW to improve endurance for simple IADL tasks. Following task, pt reports feeling a little tired. Pt in chair with call light in place following therapy session. Strengthening Exercise Upper Extremity Strength Exerc : Comment Pt participated in BUE strengthening with use of 1 pound down to increase strength for functional transfers, ADLS and to improve endurance for simple IADL tasks. Pt reports pain in right shoulder with overhead activity. Point tenderness over middle deltoid. Testing completed with pt reporting and increase in pain along middle deltoid. Completed cross adduction stretch to stretch out deltoid muscle. Completed 3 times, holding for 30 seconds. In sitting, pt participated in low plane UE strengthening. Pt completed 3 x 10 exercise with therapeutic rest break in between. Resistive rowing exercises x 20 for strengthening. In standing, complete 1 x 10 strengthening exercise in low plane with no noted loss of balance. Education/Assessment Rehabilitation Potential: Good Good participation in therapy session. Pt appears very motivated to return home. POC Short Term Goals Will Dress Upper Extremity: Independently Will Dress Lower Extremity: Independently Tabber Goals Will do Tub/Shower Transfer: Independently Will Bathe Self: Independently LTG # 1 Pt will tolerate 45 minutes of therapy with 1-2 rest breaks and demonstration of good safety. CPT/G Codes Time In: 9:30 Time Out: 10:01 Total Minutes: 31 (15 TE, 16 TA) CPT Codes: 95729 Exercise Ther (07/28 TE), 34794 Therp Activity (07/29 TA) JUAN PATTERSON OT Nov 04, 2016 14:03
--- NOTE | 2016-11-04 14:03 | OT Activity Assessment (E) ---
Activity Assessment Service Date/Time 11/04/16, 14:03 Activities Games: Other (Cards against humanity and pictionary ) Card Games: [place], Other (Pitch) Crafts: Scrap booking, Other (Sewing) Outing: Ballgames Music: Rock & Roll, Other (Wallace, Spiritism hymns) Puzzles: Other (Puzzles ) Reading: Magazines, Newspaper Other Activities: Other (Pt enjoys cooking, shopping and attending [employer]. ) Comment Pt enjoys the daily newspaper and home goods magazines. Pt would benefit from participating in any of the following activities. JUAN PATTERSON OT Nov 04, 2016 14:03
--- NOTE | 2016-11-04 14:05 | NUR ---
MULTIDISCIPLINARY MTG/DR. HUFF: Pt. admitted to swingbed on 11/01 from [place] after we transferred her there. Pt. had a mild NSTEMI after surgery. Pt. had a wound vac placed while at [place]. Dr. Cornell discharged the wound vac. Now doing dressing changes and wound packing. Pt. wound is improving. Pt. receiving PT/OT for deconditioning. Pt. will continue on antibiotics. Pt. has had some abdominal pain and receives [place] for this. No discharge needs identified at this time.
--- NOTE | 2016-11-04 14:23 | NUR ---
NUTRITION ASSESSMENT Level II Patient: Karol Valladares Age/Sex: 66/F Date Assessed: 11-04-16 ASSESSMENT Pertinent History: Patient admitted to swing bed for wound healing, and screened at high nutritional risk secondary to recent colectomy with diverting ileostomy done on 10-11-16 and weight loss since the procedure totaling ~20#. (Her weight went up to 238# during last hospitalization from fluid.) PMHx includes colovesical fistula with sigmoid colectomy and diverting ileostomy 3 weeks ago, NSTEMI post-op, anemia, HTN, asthma, hypothyroidism and obesity. She is here for strengthening and rehabilitation. Visited with pt. re: taste changes and poor appetite; she stated her medication at [facility] "made everything taste like medicine," and she apologized for not being able to force herself to eat things that don't taste good. She normally likes the protective signal operations supervisor salad that she ordered for lunch, but stated when it came she "just couldn't do it." She likes foods with texture, such as homemade chunky applesauce and fresh fruit. She does not really like canned fruit. She doesn't eat a lot of vegetables, but if they have flavor shell eat them. She likes V8 juice. Meds/Nutrition: Calcitrate + vitamin D, vitamin D, MVI, Protonix, Synthroid, Lactobacillus Acidophilus Weight: 205.7#/93.5 kg Height: 62 inches Body Mass Index (BMI): 37.7 [place] Body Weight : 110#/50 kg % IBW: 187% GASTROINTESTINAL Appetite: poor, eating 0-25% Diet Order: regular Unintentional loss of >10 lbs. in 3 months: Yes Difficult to chew/swallow: N Diabetes: N Relevant Labs: N/A Calculations for Nutritional Assessment Estimated calorie needs: 22-25 kcals/kg = 2,040-2,320 kcals Estimated protein needs: 1.3-1.5 g/kg ABW = 79-91 g./day DIAGNOSIS 1. Nutrition Diagnosis: Increased nutrient needs related to healing as evidenced by colovesical fistula with surgery 3 weeks ago/wound care. 2. Nutrition Diagnosis: Inadequate intake related to poor appetite as evidenced by 18# (8%) weight loss in the past 3 weeks. NUTRITIONAL INTERVENTION Goal: Patient will receive adequate nutrition to meet her needs and facilitate healing; goal is weight maintenance for now. Plan: Will provide regular diet as ordered; pt. is under the impression that she is supposed to be on a high-fiber diet--I asked RN to clarify this. So far we can only find a regular diet ordered from DC papers from [facility] and admission here. Pt.s daughter is bringing her tacos for dinner tonight but she requested a chicken salad wrap for lunch tomorrow along with fresh fruit. Will send small portions with every meal along with homemade protein shake (chocolate or strawberry)pt. agreed to try it, she just doesn't like Ensure. Will monitor intake for adequacy. MONITORING & EVALUATION _X_ Monitor patients menu selections _X_ Monitor patients food intake per nursing notes __ Monitor NPO/clear liquid days __ Monitor lab values __ Monitor I&O _X_ Other--monitor weight
[2016-11-04] MEDS: NYSTATIN CREAM (MYCOSTATIN) 30 GM TUBE TOP PRN (15:59)
--- NOTE | 2016-11-04 16:58 | NUR ---
Patient ambulated halls x3 1/2 laps through shift. Uses walker- gait steady- SBA only needed. Patient indep in room. Calls appropriately. Denies dizziness with position changes today.
--- NOTE | 2016-11-04 20:00 | NUR ---
Resting in recliner. Visiting with friends. Pleasant. Denies any discomforts.
--- NOTE | 2016-11-04 22:00 | NUR ---
Ready for sleep. Abdominal dressing changed. Wound healing well. No purulent drainage. Wound redressed with wet to dry dressings. One half inch packing gauze placed in lower tunneled area. Ileostomy bag intact brown stool out and bag emptied. Quiñones catheter drains cloudy candy urine. No needs at the present time. Call light within reach.
[2016-11-04] MEDS: ZOLPIDEM 5 MG (AMBIEN) TAB PO PRN (23:04)
--- NOTE | 2016-11-04 23:04 | NUR ---
[place] 5mg and Ambien 5mg administered per patient request.
--- NOTE | 2016-11-05 06:30 | NUR ---
Rested well during the night. Pain med does control pain medication. Abdominal dressing remains dry and intact. Ileostomy bag intact with small amount of brown stool in bag. Quiñones cath drains cloudy candy urine. Patient takes fluids and food well without nausea. Pleasant and cooperative with cares. No drainage from dressings. Call light within reach.
[2016-11-05] MEDS: PANTOPRAZOLE 40 MG (PROTONIX) TAB PO SCH (06:43)
[2016-11-05] MEDS: LEVOTHYROXINE 50 MCG (LEVOTHROID) TABLET PO SCH (06:43)
[2016-11-05] MEDS: LEVOFLOXACIN 750 MG TAB (LEVAQUIN) PO SCH (06:44)
[2016-11-05 08:11] VITALS: BP 105/64
[2016-11-05] MEDS: CALCIUM CITRATE/VITAMIN D3 315MG/250IU (CALCITRATE +D) TABLET PO SCH (08:27)
[2016-11-05] MEDS: MAGNESIUM OXIDE 400 MG (MAG-OX) TAB PO SCH (08:27)
[2016-11-05] MEDS: LOSARTAN 100 MG (COZAAR) TABLET PO SCH (08:27)
[2016-11-05] MEDS: CHOLECALCIFEROL 1000 INT UNITS (VITAMIN D3) TABLET PO SCH (08:27)
[2016-11-05] MEDS: meTOprolol TARTRATE 25 MG (LOPRESSOR) TABLET PO SCH ×2 (08:28→17:29)
[2016-11-05] MEDS: GLUCOSAMINE/CHONDROITIN 500MG-400MG CAPSULE PO SCH ×2 (08:28→20:29)
[2016-11-05] MEDS: AMOXICILLIN/CLAVULANATE 875MG-125MG (AUGMENTIN) TABLET PO SCH ×2 (08:28→20:29)
[2016-11-05] MEDS: ACIDOPHILUS/LACTOBACILLUS SPOROGENES 1 TABLET PO SCH ×2 (08:28→20:29)
[2016-11-05] MEDS: MULTIVITAMIN W/MINERALS (THERAGRAN M) TABLET PO SCH (08:28)
[2016-11-05] MEDS: ALLOPURINOL 300 MG (ZYLOPRIM) TAB PO SCH (08:28)
[2016-11-05] MEDS: FLUTICASONE/SALMETEROL HFA 230/21 MCG (ADVAIR) COMMON CANNISTER INH SCH ×2 (09:02→20:24)
--- NOTE | 2016-11-05 09:05 | NUR ---
SpO2 98% on room air sitting in chair. Does HFA with spacer well, rinsing mouth after.
[2016-11-05] MEDS: HYDROcodone/APAP 5 MG/325 MG (NORCO) TAB PO PRN ×3 (10:21→20:30)
--- NOTE | 2016-11-05 12:55 | PT Daily Note Inpatient (E) ---
PT Daily Treatment Service Date/Time 11/05/16, 12:49 Medical Diagnosis: (1) Esophagogastroduodenoscopy (2) Ileostomy in place ICD Code: Z93.2 (3) Hypothyroidism (acquired) ICD Code: E03.9 (4) Postoperative ileus ICD Code: K91.3 (5) Hypertensive urgency ICD Code: I16.0 (6) Diverticulitis (7) Status post colectomy ICD Code: Z90.49 Physical Therapy: (1) Leukocytosis ICD Code: D72.829 (2) Anemia ICD Code: D64.9 (3) Ileostomy in place ICD Code: Z93.2 (4) Hypertensive urgency ICD Code: I16.0 (5) Chest pain ICD Code: R07.9 (6) Hypothyroidism (acquired) ICD Code: E03.9 (7) Postoperative ileus ICD Code: K91.3 Precaution/Isolation: Standard Precautions Resuscitation Status: Full Code Fall Level: Low Risk 25-50 Subjective The patient was resting in recliner with LE elevated. Pt reports being more fatigued this date, but is willing to participate in therapy. She denies pain this date and does report walking two more times around the halls yesterday after her therapy session. Oxygen Delivery: Room air Treatments Sit, Stand, Supine: Sitting Extremity: Both Lower Extremity Repetition: 2 x 10, Other (3x10 for LAQ, HS curls ) Resistance: 1 pound, [place] Exercise: LAQ, Hip Flexion Comment seated HS curls, hip abduction Transfers Sit-Stand from bed: Supervision or setup Stand-Sit: Supervision or setup Gait Ambulation: Contact Guard Assist Distance Walked: 160 feet x 2 with sitting rest break. HR elevated from 86 bpm to 99 bpm No 02 desaturation noted. Patient ambulates with increased lateral trunk sway, Tredelenburg, and wide base of support without walker. Increased fatigue in lower extremities this date. Assistive Device: None Gait Assist: Min Assist/Contact Guard Education/Plan Education Use of hand rail as needed during ambulation, and educated the patient on her progress with a lower resting heart rate and good recovery of heart rate following ambulation. . Assessment The patient is demonstrating overall improved activity tolerance this date with exercise and ambulation. She would benefit from additional strengthening, balance, and activity tolerance prior to her return home. Plan Progress therapy activities as patient tolerates. Consider bringing patient to rehabilitation center tomorrow. Patient will be seen: Daily Friday-Friday Coding Time In: 1120 Time Out: 1215 Total Minutes: 55 Charges: 58394 Exercise Therp 15 m, 48471 Gait Training 15 mi Patient resting in recliner with LE elevated, call light in reach. GABRIELA CARTER PT Nov 05, 2016 12:55
[2016-11-05] MEDS ORDERED: DICLOFENAC 1% GEL (VOLTAREN) 100 GM TUBE TOP PRN (13:25)
--- NOTE | 2016-11-05 14:21 | OT Daily Note Inpatient (E) ---
OT Daily Treatment Service Date/Time 11/05/16, 14:10 Primary Diagnosis: (1) Esophagogastroduodenoscopy (2) Ileostomy in place ICD Code: Z93.2 (3) Hypothyroidism (acquired) ICD Code: E03.9 (4) Postoperative ileus ICD Code: K91.3 (5) Hypertensive urgency ICD Code: I16.0 (6) Diverticulitis (7) Status post colectomy ICD Code: Z90.49 Treatment Diagnosis: (1) Weakness ICD Code: R53.1 Onset Date: 10/28/16 Start of Care Date: Nov 04, 2016 Precaution/Isolation: Standard Precautions Fall Level: Low Risk 25-50 Resuscitation Status: Full Code Current Activity: Agrees to participate Pt states her R arm at the deltoid insertion is painful and is unable to lift it without assistance from other arm. MD notified and will prescribe voltaran gel for pain relief. Pt was also given an cold pack for decreasing inflammation. Pain Level: 0 Pain Location/Comment No pain without activity but very pain ful with lifting. Oxygen Needed: Room air Current Function Assessment Mental Status Mental Status: Appropriate Cognition Attention: Intact Memory: Intact Safety/Judgement: Intact Endurance Activity Endurance: Requires freq rest breaks Pt engaged in standing ball catch for 2 mintues and had to be seated due to dizziness. BP was 91/59. After rest break pt was asked to stand again to check othostatic hypertension. BP dropped to 96/34. Nursing was notified. Seated ball toss/catch to increase activity tolerance for 6 minutes. Bed Mobility/Transfers Sit to Stand: SBA Chair Transfer: SBA Sitting Balance: WFL Dressing Comment Pt was educated in using AE for LE dressing to decrease pressure on stomach. Pt was able to don/doff socks, paints with forder operator and sock aid with v/c SBA. Education/Assessment Education Provided: Assistive equipment Education Evalution: Demonstrate understanding Teaching Method: Demonstration, Practice/repetition, Verbal Readiness to Learn: Excellent Barriers to Learning: Other Treatment Tolerance: Thiago trmnt w/ complaints Problems Impacting Treatment: Dizziness Rehabilitation Potential: Good dizziness POC Short Term Goals Will Dress Upper Extremity: Independently Will Dress Lower Extremity: Independently (SBA with v/c) Wall Worker Goals Will do Tub/Shower Transfer: Independently Will Bathe Self: Independently LTG # 1 Pt will tolerate 45 minutes of therapy with 1-2 rest breaks and demonstration of good safety. (tolerated 41 min of therapy with frequent rest breaks) CPT/G Codes Time In: 1318 Time Out: 1359 Total Minutes: 41 CPT Codes: 00139 Therp Activity (16), 96097 ADL EA (25) Shirley Lepe Nov 05, 2016 14:21
[2016-11-05] MEDS: NYSTATIN CREAM (MYCOSTATIN) 30 GM TUBE TOP PRN (15:39)
--- NOTE | 2016-11-05 17:48 | NUR ---
Uneventful day shift. Participates well with therapies. Dressing changed to abdominal incision at 0930 and 1530. PRN [place] provided prior to dressing change. Patient tolerates well. 250ml loose brown stool noted in ileostomy from [id number]. Participates in bag hygiene. Quiñones catheter draining clear yellow urine. Pleasant and cooperative with cares. Call light in reach.
--- NOTE | 2016-11-05 20:42 | NUR ---
Pt awake in recliner in no distress RA99% BS clear throughout, 2puffs Advair HFA 230/21 given, rinsed mouth after
[2016-11-05] MEDS: ZOLPIDEM 5 MG (AMBIEN) TAB PO PRN (22:51)
[2016-11-06] MEDS: SIMETHICONE 40 MG/0.6 ML (MYLICON DROPS) ORAL SYRINGE PO PRN ×2 (02:43→20:57)
[2016-11-06] MEDS: PANTOPRAZOLE 40 MG (PROTONIX) TAB PO SCH (06:10)
[2016-11-06] MEDS: LEVOFLOXACIN 750 MG TAB (LEVAQUIN) PO SCH (06:10)
[2016-11-06] MEDS: LEVOTHYROXINE 50 MCG (LEVOTHROID) TABLET PO SCH (06:10)
--- NOTE | 2016-11-06 06:20 | NUR ---
Patient rests in bed throughout night without needs. Reports minimal pain this AM. Ileostomy with semi-solid output. No needs at this time.
[2016-11-06] MEDS: ACIDOPHILUS/LACTOBACILLUS SPOROGENES 1 TABLET PO SCH ×2 (08:15→20:54)
[2016-11-06] MEDS: MULTIVITAMIN W/MINERALS (THERAGRAN M) TABLET PO SCH (08:15)
[2016-11-06] MEDS: MAGNESIUM OXIDE 400 MG (MAG-OX) TAB PO SCH (08:15)
[2016-11-06] MEDS: ALLOPURINOL 300 MG (ZYLOPRIM) TAB PO SCH (08:15)
[2016-11-06] MEDS: GLUCOSAMINE/CHONDROITIN 500MG-400MG CAPSULE PO SCH ×2 (08:15→20:54)
[2016-11-06] MEDS: CALCIUM CITRATE/VITAMIN D3 315MG/250IU (CALCITRATE +D) TABLET PO SCH (08:15)
[2016-11-06] MEDS: AMOXICILLIN/CLAVULANATE 875MG-125MG (AUGMENTIN) TABLET PO SCH ×2 (08:15→20:54)
[2016-11-06] MEDS: LOSARTAN 100 MG (COZAAR) TABLET PO SCH (08:15)
[2016-11-06] MEDS: CHOLECALCIFEROL 1000 INT UNITS (VITAMIN D3) TABLET PO SCH (08:15)
[2016-11-06] MEDS: meTOprolol TARTRATE 25 MG (LOPRESSOR) TABLET PO SCH ×2 (08:15→18:37)
[2016-11-06] MEDS: FLUTICASONE/SALMETEROL HFA 230/21 MCG (ADVAIR) COMMON CANNISTER INH SCH ×2 (08:16→20:15)
[2016-11-06 08:18] VITALS: BP 113/51
--- NOTE | 2016-11-06 12:09 | PT Daily Note Inpatient (E) ---
PT Daily Treatment Service Date/Time 11/06/16, 12:00 Medical Diagnosis: (1) Esophagogastroduodenoscopy (2) Ileostomy in place ICD Code: Z93.2 (3) Hypothyroidism (acquired) ICD Code: E03.9 (4) Postoperative ileus ICD Code: K91.3 (5) Hypertensive urgency ICD Code: I16.0 (6) Diverticulitis (7) Status post colectomy ICD Code: Z90.49 Physical Therapy: (1) Leukocytosis ICD Code: D72.829 (2) Anemia ICD Code: D64.9 (3) Ileostomy in place ICD Code: Z93.2 (4) Hypertensive urgency ICD Code: I16.0 (5) Chest pain ICD Code: R07.9 (6) Hypothyroidism (acquired) ICD Code: E03.9 (7) Postoperative ileus ICD Code: K91.3 Precaution/Isolation: Standard Precautions Resuscitation Status: Full Code Fall Level: Low Risk 25-50 Subjective Pt sitting up in chair. present. Agrees to therapy. Oxygen Delivery: Room air Treatments Sit, Stand, Supine: Sitting, Long Sitting Extremity: Both Lower Extremity Assistance: AROM Repetition: 1 x 20 Exercise: AP, QS, Heel Slides, Hip Abduction, SLR, LAQ, Hip Flexion Static Balance: NBOS (eyes open and eyes closed without UE assist.) Duration: 1x 60 seconds Comment Wt shifting forward and lateral x 1 minute each. Transfers Sitting Edge of Bed: Complete [place] Supine-Sit: Supervision or setup Sit-Stand from bed: Supervision or setup ( x 5 reps using UE assist.) Stand-Sit: Supervision or setup Gait Ambulation: Contact Guard Assist Distance Walked: 600 feet and 100 feet. Assistive Device: FWW Gait Description: Decreased Zoey, Slow, Short Step Length Gait Training: Limitations: Fatigue Education/Plan Education Use of hand rail as needed during ambulation, and educated the patient on her progress with a lower resting heart rate and good recovery of heart rate following ambulation. . Assessment Pt tolerated treatment well. Required 5-6 brief sitting rest breaks. Plan Patient will be seen: Daily Friday-Friday Coding Time In: 11:41 Time Out: 12:01 Charges: 51141 Exercise Therp 15 m (49 moinutes) Jerad Raza SUPPLY REQUIREMENTS OFFICER Nov 06, 2016 12:09
--- NOTE | 2016-11-06 13:59 | OT Daily Note Inpatient (E) ---
OT Daily Treatment Service Date/Time 11/06/16, 13:53 Primary Diagnosis: (1) Esophagogastroduodenoscopy (2) Ileostomy in place ICD Code: Z93.2 (3) Hypothyroidism (acquired) ICD Code: E03.9 (4) Postoperative ileus ICD Code: K91.3 (5) Hypertensive urgency ICD Code: I16.0 (6) Diverticulitis (7) Status post colectomy ICD Code: Z90.49 Treatment Diagnosis: (1) Weakness ICD Code: R53.1 Onset Date: 10/28/16 Start of Care Date: Nov 04, 2016 Precaution/Isolation: Standard Precautions Fall Level: Low Risk 25-50 Resuscitation Status: Full Code Current Activity: Agrees to participate, Up in chair Ice and voltaran gel has helped with UE soreness. Pain Level: 0 Pain Location/Comment RUE does get sore with activity Oxygen Needed: Room air Current Function Assessment Cognition Attention: Intact Memory: Intact Safety/Judgement: Intact Dressing Dressing: Independent (Educated in using different spices, lemon, salt or sugar to assist with taste buds. Nothing tastes good) Treatments Strengthening Exercise Upper Extremity Strength Exerc : Upper Extremity: Bilateral Exercise Type: AROM Repetitions: 10 X 1 (on right), 10 X 2 (L UE) Amount of Resistance: Red Comment Pt engaged in PRE with red t-band to increase strength for transfers and activity tolerance. She required 1 one rest break. Only one set on R UE due to soreness and all exercises kept within a lower plane. Tolerated well. Required v /c and demonstration for correct form. Education/Assessment Education Provided: Assistive equipment Education Evalution: Demonstrate understanding Teaching Method: Demonstration, Practice/repetition, Verbal Readiness to Learn: Excellent Barriers to Learning: Other Treatment Tolerance: Thiago trmnt w/o complaints Problems Impacting Treatment: Dizziness Rehabilitation Potential: Good Pt tolerated tx well and will benefit from further OT to increase activity tolerance for ADLs POC Short Term Goals Will Dress Upper Extremity: Independently Will Dress Lower Extremity: Independently (SBA with v/c) Rail Car Repair Carman Goals Will do Tub/Shower Transfer: Independently Will Bathe Self: Independently LTG # 1 Pt will tolerate 45 minutes of therapy with 1-2 rest breaks and demonstration of good safety. (tolerated 41 min of therapy with frequent rest breaks) CPT/G Codes Time In: 1319 Time Out: 1343 Total Minutes: 23 CPT Codes: 56575 Exercise Ther Shirley Lepe Nov 06, 2016 13:59
--- NOTE | 2016-11-06 15:13 | Progress Note-A/P (E) ---
Progress Note Subjective Subjective Doing well, no complaints. I did call the patient's daughter this morning, who had questions reqarding wound healing and the current plan of wound care. Objective VS Vital Signs Date Time Temp Pulse Resp B/P Pulse Ox O2 Delivery O2 Flow Rate FiO2 11/06/16 08:18 96.2 95 18 113/51 98 Room air Current Medications Current Medications Levofloxacin 750 mg DAILY@0700 PO Last administered on 11/06/16 06:10; Admin Dose 750 MG; Start 11/05/16 at 07:00; Stop 11/08/16 at 07:01 Amoxicillin/ Clavulanate Potassium 875 mg BID PO Last administered on 11/06/16 08:15; Admin Dose 875 MG; Start 11/04/16 at 21:00; Stop 11/08/16 at 09:01 Nystatin APPLY SPARINGLY TO BACK... BID PRN TOP Last administered on 11/05/16 15:39; Admin Dose 1 APPLIC; Start 11/04/16 at 15:25 Diclofenac Sodium 4 grams right shoulder QID PRN TOP Last administered on 15:39; Admin Dose 1 APPLIC; Start 11/05/16 at 13:25 General Awake, alert, no distress. Lungs No dyspnea Abdomen The wound is clean, healthy, and without any purulence or drainage. Integumentary Warm, dry Neuro Grossly normal Assessment s/p sigmoid colectomy, repair of bladder fistula, and diverting loop ileostomy Postop NSTEMI Plan Continue wound care; patient OK to dismiss when home health is arranged to assist with dressing care and stoma management. The midline wound will need to be packed with saline-soaked Nugauze and moist 4x4, with Telfa over the superior aspect, 4x4s, and tape. This should be done at least twice daily after discharge, and I will need to see the patient in follow-up next . A low fiber diet would also be advisable due to the temporary ileostomy. JOSELYN OLIVARES MD Nov 06, 2016 15:13
--- NOTE | 2016-11-06 15:15 | NUR ---
Dr. Cornell in to access wound during dressing change.
--- NOTE | 2016-11-06 17:25 | OT Daily Note Inpatient (E) ---
OT Daily Treatment Service Date/Time 11/06/16, 17:25 Primary Diagnosis: (1) Esophagogastroduodenoscopy (2) Ileostomy in place ICD Code: Z93.2 (3) Hypothyroidism (acquired) ICD Code: E03.9 (4) Postoperative ileus ICD Code: K91.3 (5) Hypertensive urgency ICD Code: I16.0 (6) Diverticulitis (7) Status post colectomy ICD Code: Z90.49 Treatment Diagnosis: (1) Weakness ICD Code: R53.1 Onset Date: 10/28/16 Start of Care Date: Nov 04, 2016 Precaution/Isolation: Standard Precautions Fall Level: Low Risk 25-50 Resuscitation Status: Full Code Pt reports she is feeling like she is making progress. Worried about being able to step in her tub/shower combination and is open to installing grab bars. Pain Level: 0 Oxygen Needed: Room air Current Function Assessment Mental Status Patient Orientation: Person, Time, Situation Mental Status: Alert Cognition Attention: Intact Memory: Intact Safety/Judgement: Intact Bed Mobility/Transfers Sit to Stand: SBA Chair Transfer: SBA ADLs Grooming: Grooming Status: Setup/SBA Grooming Assistance With-: Combing hair, Other (Deodorant ) Dressing Dressing: Minimum assist (With bra ) Bathing Pt participated in bathing task this date. Able to doff clothing with modified independence. Provided pt with long handled sponge to wash back and feet. Pt able to pull of dressing of incision with minimal assistance. Pt able to wash body and dry self with SBA. Safety cue to hold onto grab bar when standing instead of walker. Noted- pt fatigued following activity. Education/Assessment Education Provided: Assistive equipment Education Evalution: Demonstrate understanding Teaching Method: Demonstration, Practice/repetition, Verbal Readiness to Learn: Excellent Barriers to Learning: Other Treatment Tolerance: Thiago trmnt w/o complaints Problems Impacting Treatment: Dizziness Rehabilitation Potential: Good Able to complete bathing with SBA and required minimal assistance for donning of bra. Noted- pt fatigued following self care tasks. POC Plan of Care Problems Identified: Activity Tolerance Short Term Goals Will Dress Upper Extremity: Independently Will Dress Lower Extremity: Independently (SBA with v/c) Market Research Associate Goals Will do Tub/Shower Transfer: Independently Will Bathe Self: Independently LTG # 1 Pt will tolerate 45 minutes of therapy with 1-2 rest breaks and demonstration of good safety. (tolerated 41 min of therapy with frequent rest breaks) CPT/G Codes Time In: 8:55 Time Out: 9:42 Total Minutes: 47 ( ADL) CPT Codes: 88835 ADL EA () JUAN PATTERSON OT Nov 06, 2016 17:25
--- NOTE | 2016-11-06 19:00 | NUR ---
Patient has had no complaints throughout the day. spent time at bedside during part of morning and afternoon. Patient spent time in bed and in recliner. Ambulated in finch with PT. Denied pain or discomfort throughout day and tolerated dressing changes well.
--- NOTE | 2016-11-06 20:29 | NUR ---
Room air, 98%. Inhalers given, pt. does well.
--- NOTE | 2016-11-06 20:57 | NUR ---
Pt is sitting up in recliner, alert and oriented x 4, Resp are even and nonlabored, LCTAB, HRRR, BS are active x 4 quadrants. Dressing to abdomen is clean, dry, and intact. Does not want to change it until she is in bed. Rates pain 2/10 at this time. Does request "gas drops", this RN gave Mylicon liquid 40mg/0.6ml PO for discomfort. SL is patent, no redness, swelling, or s/s of infection noted at this time. Call light is in reach, will continue to monitor.
[2016-11-06] MEDS: HYDROcodone/APAP 5 MG/325 MG (NORCO) TAB PO PRN (22:45)
--- NOTE | 2016-11-06 22:45 | NUR ---
Wet to dry dressing to abdomen is changed at this time per pt's request. Rates pain 5/10 at this time gave 1 tab PO of [place] 5/325mg for discomfort. Will continue to monitor.
[2016-11-07] MEDS: ZOLPIDEM 5 MG (AMBIEN) TAB PO PRN ×2 (00:02→21:30)
--- NOTE | 2016-11-07 00:02 | NUR ---
Pt request Ambien to sleep, gave Ambien 5mg PO for insomnia. Will continue to monitor.
--- NOTE | 2016-11-07 05:08 | NUR ---
Pt is resting in bed asleep, does not appear to be in discomfort at this time. Will continue to monitor.
[2016-11-07] MEDS: PANTOPRAZOLE 40 MG (PROTONIX) TAB PO SCH (06:01)
[2016-11-07] MEDS: LEVOFLOXACIN 750 MG TAB (LEVAQUIN) PO SCH (06:01)
[2016-11-07] MEDS: LEVOTHYROXINE 50 MCG (LEVOTHROID) TABLET PO SCH (06:02)
[2016-11-07 07:23] VITALS: BP 114/54
[2016-11-07] MEDS: FLUTICASONE/SALMETEROL HFA 230/21 MCG (ADVAIR) COMMON CANNISTER INH SCH ×2 (08:01→20:26)
[2016-11-07] MEDS: CALCIUM CITRATE/VITAMIN D3 315MG/250IU (CALCITRATE +D) TABLET PO SCH (08:20)
[2016-11-07] MEDS: GLUCOSAMINE/CHONDROITIN 500MG-400MG CAPSULE PO SCH ×2 (08:20→21:30)
[2016-11-07] MEDS: AMOXICILLIN/CLAVULANATE 875MG-125MG (AUGMENTIN) TABLET PO SCH ×2 (08:20→21:30)
[2016-11-07] MEDS: ALLOPURINOL 300 MG (ZYLOPRIM) TAB PO SCH (08:20)
[2016-11-07] MEDS: CHOLECALCIFEROL 1000 INT UNITS (VITAMIN D3) TABLET PO SCH (08:20)
[2016-11-07] MEDS: LOSARTAN 100 MG (COZAAR) TABLET PO SCH (08:20)
[2016-11-07] MEDS: ACIDOPHILUS/LACTOBACILLUS SPOROGENES 1 TABLET PO SCH ×2 (08:20→21:30)
[2016-11-07] MEDS: MULTIVITAMIN W/MINERALS (THERAGRAN M) TABLET PO SCH (08:20)
[2016-11-07] MEDS: meTOprolol TARTRATE 25 MG (LOPRESSOR) TABLET PO SCH ×2 (08:20→17:45)
[2016-11-07] MEDS: MAGNESIUM OXIDE 400 MG (MAG-OX) TAB PO SCH (08:20)
[2016-11-07] MEDS: HYDROcodone/APAP 5 MG/325 MG (NORCO) TAB PO PRN ×2 (08:57→21:31)
--- NOTE | 2016-11-07 09:42 | PT Daily Note Inpatient (E) ---
PT Daily Treatment Service Date/Time 11/07/16, 09:38 Medical Diagnosis: (1) Esophagogastroduodenoscopy (2) Ileostomy in place ICD Code: Z93.2 (3) Hypothyroidism (acquired) ICD Code: E03.9 (4) Postoperative ileus ICD Code: K91.3 (5) Hypertensive urgency ICD Code: I16.0 (6) Diverticulitis (7) Status post colectomy ICD Code: Z90.49 Physical Therapy: (1) Leukocytosis ICD Code: D72.829 (2) Anemia ICD Code: D64.9 (3) Ileostomy in place ICD Code: Z93.2 (4) Hypertensive urgency ICD Code: I16.0 (5) Chest pain ICD Code: R07.9 (6) Hypothyroidism (acquired) ICD Code: E03.9 (7) Postoperative ileus ICD Code: K91.3 Precaution/Isolation: Standard Precautions Resuscitation Status: Full Code Fall Level: Low Risk 25-50 Subjective Pt in chair, pleasant and cooperative, no c/o this a.m. Pain Level: 0 Oxygen Delivery: Room air Treatments Sit, Stand, Supine: Sitting Extremity: Both Lower Extremity Assistance: AROM Repetition: 2 x 10 Exercise: LAQ, TR, HR Transfers Sit-Stand from bed: Supervision or setup Stand-Sit: Supervision or setup Gait Ambulation: Supervision or setup Distance Walked: 180', 600' denies fatigue, held conversation during walk with no s/s fatigue Weight Bearing Status: Full Assistive Device: FWW Gait Assist: Supervision Required Gait Description: Normal:No Sig. Deviation, Safe w/ Assistive Device Stairs up/down x1 flight of stairs using both handrails, no LOB, fatigued afterwards, uses step to gait pattern Education/Plan Education Assessment Pt tolerated treatment well, fatigued after stairs, gait with no rest stops, denies fatigue with gait, endurance improving Safety Awareness: Intact Response to Treatment: Improving Plan Cont POC Patient will be seen: Daily Friday-Friday Discharge Recommendations: Caregiver support Coding Time In: 901 Time Out: 935 Total Minutes: 34 Charges: 14372 Exercise Therp MARNI Aguilar PTA Nov 07, 2016 09:42
--- NOTE | 2016-11-07 10:16 | NUR ---
Braydon given at 0855 as pre-med to working with PT. Quiñones intact, with urine in collection bag, but is noted to be leaking around catheter insertion- will notify Dr. Helms.
--- NOTE | 2016-11-07 11:12 | NUR ---
Attempted to call Dr. Hankins's nurse regarding Radiology's questioning for cystogram with or without catheter as well as catheter leaking per Dr. Helms request. Left message on Calrita's machine- Cr's office nurse.
--- NOTE | 2016-11-07 11:58 | PT Daily Note Inpatient (E) ---
PT Daily Treatment Service Date/Time 11/07/16, 11:56 Medical Diagnosis: (1) Esophagogastroduodenoscopy (2) Ileostomy in place ICD Code: Z93.2 (3) Hypothyroidism (acquired) ICD Code: E03.9 (4) Postoperative ileus ICD Code: K91.3 (5) Hypertensive urgency ICD Code: I16.0 (6) Diverticulitis (7) Status post colectomy ICD Code: Z90.49 Physical Therapy: (1) Leukocytosis ICD Code: D72.829 (2) Anemia ICD Code: D64.9 (3) Ileostomy in place ICD Code: Z93.2 (4) Hypertensive urgency ICD Code: I16.0 (5) Chest pain ICD Code: R07.9 (6) Hypothyroidism (acquired) ICD Code: E03.9 (7) Postoperative ileus ICD Code: K91.3 Precaution/Isolation: Standard Precautions Resuscitation Status: Full Code Fall Level: Low Risk 25-50 Subjective pt agrees to split tx, would like to see how long she can walk Pain Level: 0 Oxygen Delivery: Room air Transfers Supine-Sit: Modified [place] Sit-Stand from bed: Supervision or setup Stand-Sit: Supervision or setup Gait Ambulation: Supervision or setup Distance Walked: 900' Weight Bearing Status: Full Assistive Device: FWW Gait Assist: Supervision Required Gait Description: Normal:No Sig. Deviation, Safe w/ Assistive Device Gait Training: Limitations: Fatigue ("very little" fatigue at end of walk) Education/Plan Education Assessment Endurance improving Safety Awareness: Intact Response to Treatment: Improving Plan Cont POC Patient will be seen: Daily Friday-Friday Discharge Recommendations: Caregiver support Coding Time In: 1138 Time Out: 1155 Charges: 33461 Exercise Therp MARNI Aguilar SENIOR CENTER DIRECTOR Nov 07, 2016 11:58
--- NOTE | 2016-11-07 12:16 | OT Daily Note Inpatient (E) ---
OT Daily Treatment Service Date/Time 11/07/16, 12:16 Primary Diagnosis: (1) Esophagogastroduodenoscopy (2) Ileostomy in place ICD Code: Z93.2 (3) Hypothyroidism (acquired) ICD Code: E03.9 (4) Postoperative ileus ICD Code: K91.3 (5) Hypertensive urgency ICD Code: I16.0 (6) Diverticulitis (7) Status post colectomy ICD Code: Z90.49 Treatment Diagnosis: (1) Weakness ICD Code: R53.1 Onset Date: 10/28/16 Start of Care Date: Nov 04, 2016 Precaution/Isolation: Standard Precautions Fall Level: Low Risk 25-50 Resuscitation Status: Full Code Pt up eating breakfast upon therapist arrival. Reports wearing pants was a little uncomfortable with the catheter. Pain Level: 0 Oxygen Needed: Room air Current Function Assessment Mental Status Mental Status: Alert Cognition Attention: Intact Memory: Intact Safety/Judgement: Intact Education/Assessment Education Provided: Assistive equipment, Home management/safety (Provided education to pt with handouts on placement of grab bars in the shower to improve safety with transfers and during showering task. Additionally provided pt with education on a transfer style tub bench to reduce risk of falls. Provided information on wear to obtain equipment. ) Education Evalution: Demonstrate understanding Teaching Method: Demonstration, Practice/repetition, Verbal Readiness to Learn: Excellent Barriers to Learning: Other Treatment Tolerance: Thiago trmnt w/o complaints Problems Impacting Treatment: Dizziness Rehabilitation Potential: Good Provided information on home safety including installation of grabs and a transfer style tub bench. POC Plan of Care Problems Identified: Activity Tolerance Short Term Goals Will Dress Upper Extremity: Independently (min a for bra ) Will Dress Lower Extremity: Independently (SBA with v/c) Wood Inspector Goals Will do Tub/Shower Transfer: Independently Will Bathe Self: Independently LTG # 1 Pt will tolerate 45 minutes of therapy with 1-2 rest breaks and demonstration of good safety. (tolerated 41 min of therapy with frequent rest breaks) CPT/G Codes Time In: 8:24 Time Out: 8:34 Total Minutes: 10 (07/23 ADL) CPT Codes: 35225 ADL EA (07/23) JUAN PATTERSON OT Nov 07, 2016 12:16
--- NOTE | 2016-11-07 17:32 | OT Daily Note Inpatient (E) ---
OT Daily Treatment Service Date/Time 11/07/16, 17:27 Primary Diagnosis: (1) Esophagogastroduodenoscopy (2) Ileostomy in place ICD Code: Z93.2 (3) Hypothyroidism (acquired) ICD Code: E03.9 (4) Postoperative ileus ICD Code: K91.3 (5) Hypertensive urgency ICD Code: I16.0 (6) Diverticulitis (7) Status post colectomy ICD Code: Z90.49 Treatment Diagnosis: (1) Weakness ICD Code: R53.1 Onset Date: 10/28/16 Start of Care Date: Nov 04, 2016 Precaution/Isolation: Standard Precautions Fall Level: Low Risk 25-50 Resuscitation Status: Full Code I am worried about getting in/out of the tub Pain Level: 0 Oxygen Needed: Room air Current Function Assessment Mental Status Mental Status: Alert Cognition Attention: Intact Memory: Intact Safety/Judgement: Intact Endurance Activity Endurance: Good Pt was able to perform functional mobility with FWW in hallway approx 450 feet with no SOA or LOB. Bed Mobility/Transfers Sit to Stand: SBA Chair Transfer: SBA Sitting Balance: WFL Bathing Bathing Assistive Device: Bath bench Shower/Bench Transfer Ability: Setup/SBA Pt was educated in bath tub bench transfers with v/c and demonstration. Pt was then able to transfer with SBA. Pt was given resources for tub bench and approx. cost. Education/Assessment Education Provided: Assistive equipment Education Evalution: Demonstrate understanding Teaching Method: Demonstration, Practice/repetition, Verbal Readiness to Learn: Excellent Barriers to Learning: Other Treatment Tolerance: Thiago trmnt w/o complaints Problems Impacting Treatment: Dizziness Rehabilitation Potential: Good Pt Activity tolerance is improving and able to transfer with SBA. POC Plan of Care Problems Identified: Activity Tolerance Short Term Goals Will Dress Upper Extremity: Independently Will Dress Lower Extremity: Independently (SBA with v/c) Long-Term Goals Will do Tub/Shower Transfer: Independently (SBA for entering and exiting independent) Will Bathe Self: Independently LTG # 1 Pt will tolerate 45 minutes of therapy with 1-2 rest breaks and demonstration of good safety. (tolerated 41 min of therapy with frequent rest breaks) CPT/G Codes Time In: 1540 Time Out: 1600 Total Minutes: 19 CPT Codes: 63354 ADL Shirley Decker Nov 07, 2016 17:32
--- NOTE | 2016-11-08 06:06 | NUR ---
1950-Pt is sitting up in recliner visiting with daughter, alert and oriented x 4, Resp are even and nonlabored, LCTAB, HRRR, BS are active x 4 quadrants, dressing to abdomen is clean, dry, and intact. Denies pain or needs at this time. Call light is in reach, will continue to monitor. 2130-Changed dressing to abdomen with minimal discomfort to pt. Complains of pain rates5/10, and request sleeping pill. Gave 1 tab PO of [place] 5/325mg for discomfort, and 1 tab PO of Ambien 5mg for sleep. 0005-Pt is NPO for procedure in am. 0530-Pt is resting in bed asleep, will continue to monitor.
[2016-11-08] MEDS: PANTOPRAZOLE 40 MG (PROTONIX) TAB PO SCH (06:28)
[2016-11-08] MEDS: LEVOFLOXACIN 750 MG TAB (LEVAQUIN) PO SCH (06:28)
[2016-11-08] MEDS: LEVOTHYROXINE 50 MCG (LEVOTHROID) TABLET PO SCH (06:28)
[2016-11-08 07:17] VITALS: BP 150/68
[2016-11-08] MEDS: FLUTICASONE/SALMETEROL HFA 230/21 MCG (ADVAIR) COMMON CANNISTER INH SCH ×2 (08:04→19:46)
--- NOTE | 2016-11-08 09:00 | PT Daily Note Inpatient (E) ---
PT Daily Treatment Service Date/Time 11/08/16, 08:55 Medical Diagnosis: (1) Esophagogastroduodenoscopy (2) Ileostomy in place ICD Code: Z93.2 (3) Hypothyroidism (acquired) ICD Code: E03.9 (4) Postoperative ileus ICD Code: K91.3 (5) Hypertensive urgency ICD Code: I16.0 (6) Diverticulitis (7) Status post colectomy ICD Code: Z90.49 Physical Therapy: (1) Leukocytosis ICD Code: D72.829 (2) Anemia ICD Code: D64.9 (3) Ileostomy in place ICD Code: Z93.2 (4) Hypertensive urgency ICD Code: I16.0 (5) Chest pain ICD Code: R07.9 (6) Hypothyroidism (acquired) ICD Code: E03.9 (7) Postoperative ileus ICD Code: K91.3 Precaution/Isolation: Standard Precautions Resuscitation Status: Full Code Fall Level: Low Risk 25-50 Subjective Pt waiting to go down for a medical test. Agrees to therapy. Oxygen Delivery: Room air Treatments Sit, Stand, Supine: Sitting, Long Sitting, Standing Extremity: Both Lower Extremity Assistance: AROM Repetition: 1 x 20 Exercise: AP, QS, Heel Slides, Hip Abduction, SLR, LAQ, Hip Flexion, Hip Extension, TR, HR Transfers Sit-Stand from bed: Modified [place] Gait Ambulation: Supervision or setup Distance Walked: 600 feet Assistive Device: FWW Gait Description: Normal:No Sig. Deviation Gait Training: Limitations: Fatigue Education/Plan Education Assessment Progressing toward goals. Increased activity tolerance. Plan Patient will be seen: Daily Friday-Friday Discharge Recommendations: Caregiver support Coding Time In: 8:22 Time Out: 8:55 Total Minutes: 33 Charges: 70060 Exercise Therp 15 m (33 minutes) Jerad Raza PTA Nov 08, 2016 09:00
--- NOTE | 2016-11-08 11:01 | NUR ---
Pt ambulates in room indep. Has had 100ml semi-liquid brown stool. Quiñones in place. No c/o leaking from insertion of cath. Pt to Radiology for Cystogram.
[2016-11-08] MEDS ORDERED: NS ONE (11:38)
--- NOTE | 2016-11-08 12:05 | NUR ---
Pt returns to room from Radiology
[2016-11-08] MEDS: meTOprolol TARTRATE 25 MG (LOPRESSOR) TABLET PO SCH ×2 (12:26→17:49)
[2016-11-08] MEDS: CHOLECALCIFEROL 1000 INT UNITS (VITAMIN D3) TABLET PO SCH (12:26)
[2016-11-08] MEDS: ACIDOPHILUS/LACTOBACILLUS SPOROGENES 1 TABLET PO SCH ×2 (12:26→20:48)
[2016-11-08] MEDS: GLUCOSAMINE/CHONDROITIN 500MG-400MG CAPSULE PO SCH ×2 (12:26→20:48)
[2016-11-08] MEDS: LOSARTAN 100 MG (COZAAR) TABLET PO SCH (12:26)
[2016-11-08] MEDS: MULTIVITAMIN W/MINERALS (THERAGRAN M) TABLET PO SCH (12:26)
[2016-11-08] MEDS: CALCIUM CITRATE/VITAMIN D3 315MG/250IU (CALCITRATE +D) TABLET PO SCH (12:26)
[2016-11-08] MEDS: MAGNESIUM OXIDE 400 MG (MAG-OX) TAB PO SCH (12:26)
[2016-11-08] MEDS: ALLOPURINOL 300 MG (ZYLOPRIM) TAB PO SCH (12:27)
[2016-11-08] MEDS: AMOXICILLIN/CLAVULANATE 875MG-125MG (AUGMENTIN) TABLET PO SCH (12:27)
[2016-11-08] MEDS: HYDROcodone/APAP 5 MG/325 MG (NORCO) TAB PO PRN ×2 (12:30→23:14)
--- NOTE | 2016-11-08 13:08 | Diagnostic Imaging Report ---
INDICATION: Vesicointestinal fistula. FINDINGS: The snow groomer film of the pelvis shows a ureteral stent to be present with the pigtail projected over the urinary bladder region. An ostomy is seen in the right lower quadrant. A Quiñones balloon catheter is in place. Omnipaque 240 was sterilely instilled into the urinary bladder and filling was observed with fluoroscopy. Multiple spot films were done with overhead radiographs. Early filling showed no significant abnormality. At approximately 150 cc, there was left vesicoureteral reflux into the left pelvicalyceal system. At about 200 cc, irregularity of the left lateral wall of the urinary bladder was noted with an abnormal contrast collection at the left aspect of the urinary bladder. There is a thin communication between the urinary bladder and the extraluminal contrast collection. The contrast collection occupies an area of about 2.6 cm. At 250 cc, no more contrast was drip into the urinary bladder. The post drainage radiograph demonstrated persistent localized extraluminal contrast accumulation. IMPRESSION: 1. Extravasated urinary bladder contrast through a thin tract to the left para-vesicle region. This may be a localized accumulation within the bowel wall that did not progress intraluminally in the bowel or represent a localized extraluminal peritoneal collection. 2. The left ureteral stent is in good position. Dictated by: Dictated on workstation # [id number]
--- NOTE | 2016-11-08 17:50 | OT Daily Note Inpatient (E) ---
OT Daily Treatment Service Date/Time 11/08/16, 17:43 Primary Diagnosis: (1) Esophagogastroduodenoscopy (2) Ileostomy in place ICD Code: Z93.2 (3) Hypothyroidism (acquired) ICD Code: E03.9 (4) Postoperative ileus ICD Code: K91.3 (5) Hypertensive urgency ICD Code: I16.0 (6) Diverticulitis (7) Status post colectomy ICD Code: Z90.49 Treatment Diagnosis: (1) Weakness ICD Code: R53.1 Onset Date: 10/28/16 Start of Care Date: Nov 04, 2016 Precaution/Isolation: Standard Precautions Fall Level: Low Risk 25-50 Resuscitation Status: Full Code Current Activity: Agrees to participate, In bed, Pleasant & cooperative Pain Level: 4 Pain Location/Comment back Oxygen Needed: Room air Current Function Assessment Cognition Attention: Intact Memory: Intact Safety/Judgement: Intact Endurance Pt engaged in functional mobility in hallway with FWW at SBA 700 feet with no LOB or SOA Bed Mobility/Transfers Bed Mobility: Independent Supine from Sit: Independent Sit to Stand: Independent Chair Transfer: Independent Sitting Balance: WFL Treatments Strengthening Exercise Upper Extremity Strength Exerc : Upper Extremity: Bilateral Repetitions: 15 X 1 Amount of Resistance: Red Education/Assessment Education Provided: Assistive equipment, Other (Pt was given educational material for ostomy care and reviewed for competence for return home) Education Evalution: Demonstrate understanding Teaching Method: Demonstration, Practice/repetition, Verbal Readiness to Learn: Excellent Barriers to Learning: Other Treatment Tolerance: Thiago trmnt w/o complaints Problems Impacting Treatment: Dizziness Rehabilitation Potential: Good POC Plan of Care Problems Identified: Activity Tolerance Short Term Goals Will Dress Upper Extremity: Independently Will Dress Lower Extremity: Independently (SBA with v/c) Fdc Goals Will do Tub/Shower Transfer: Independently (SBA for entering and exiting independent) Will Bathe Self: Independently LTG # 1 Pt will tolerate 45 minutes of therapy with 1-2 rest breaks and demonstration of good safety. (tolerated 41 min of therapy with frequent rest breaks) CPT/G Codes Time In: 1321 Time Out: 1701 Total Minutes: 54 CPT Codes: 03400 Therp Activity (19), 58990 ADL EA (30) Shirley Lepe Nov 08, 2016 17:50
--- NOTE | 2016-11-08 18:09 | NUR ---
Pt eating supper in room- daughter brought her supper from home. Will let nurse know when she is finished eating so that this nurse can change dressing again this jeffrey.
[2016-11-08] MEDS: ZOLPIDEM 5 MG (AMBIEN) TAB PO PRN (23:14)
--- NOTE | 2016-11-09 05:15 | NUR ---
Patient's stoma appliance full and leaking, appliance changed. Patient up to shower. Dressing to wound changed after shower. Patient without needs at this time. Has rested well in bed throughout night.
[2016-11-09] MEDS: LEVOTHYROXINE 50 MCG (LEVOTHROID) TABLET PO SCH (06:13)
[2016-11-09] MEDS: PANTOPRAZOLE 40 MG (PROTONIX) TAB PO SCH (06:14)
[2016-11-09] MEDS: HYDROcodone/APAP 5 MG/325 MG (NORCO) TAB PO PRN ×3 (07:31→22:11)
--- NOTE | 2016-11-09 07:45 | NUR ---
Patient sitting up in recliner upon shift assessment. Alert and oriented X3. Reports generalized abdominal pain rated 4/10 on pain scale. PRN [place] provided per request. Abdominal incision dressing intact. Ileostomy flange leaking from bottom, replaced at this time. Patient tolerates well. HR RRR. Lung sounds CTAB. Updated on plan of care for shift. Call light in reach.
[2016-11-09 08:01] VITALS: BP 145/62
[2016-11-09 08:09] VITALS: BP 93/50
[2016-11-09 08:19] VITALS: BP 145/62
[2016-11-09] MEDS: ACIDOPHILUS/LACTOBACILLUS SPOROGENES 1 TABLET PO SCH ×2 (08:43→20:55)
[2016-11-09] MEDS: CHOLECALCIFEROL 1000 INT UNITS (VITAMIN D3) TABLET PO SCH (08:43)
[2016-11-09] MEDS: ALLOPURINOL 300 MG (ZYLOPRIM) TAB PO SCH (08:43)
[2016-11-09] MEDS: LOSARTAN 100 MG (COZAAR) TABLET PO SCH (08:43)
[2016-11-09] MEDS: MULTIVITAMIN W/MINERALS (THERAGRAN M) TABLET PO SCH (08:43)
[2016-11-09] MEDS: MAGNESIUM OXIDE 400 MG (MAG-OX) TAB PO SCH (08:43)
[2016-11-09] MEDS: GLUCOSAMINE/CHONDROITIN 500MG-400MG CAPSULE PO SCH ×2 (08:43→20:55)
[2016-11-09] MEDS: meTOprolol TARTRATE 25 MG (LOPRESSOR) TABLET PO SCH ×2 (08:43→18:09)
[2016-11-09] MEDS: CALCIUM CITRATE/VITAMIN D3 315MG/250IU (CALCITRATE +D) TABLET PO SCH (08:43)
[2016-11-09] MEDS: FLUTICASONE/SALMETEROL HFA 230/21 MCG (ADVAIR) COMMON CANNISTER INH SCH ×2 (09:14→19:09)
--- NOTE | 2016-11-09 12:17 | Progress Note (E) ---
Progress Note SUBJECTIVE Continues to do well in skilled care. Dr. Cornell managing wound care closely. She had a cystogram 11/08. Reviewed results with her and provided printout. OBJECTIVE Vital Signs Date Time Temp Pulse Resp B/P Pulse Ox O2 Delivery O2 Flow Rate FiO2 11/09/16 08:19 145/62 11/09/16 08:09 96.8 81 20 100 Room air I & O 11/08/16 11/09/16 Cumulative From/Thru 19:00 07:00 11/01/16 11:40 - 11/09/16 05:51 Intake Total 1100 ml 65728 ml Output Total 2100 ml 46428 ml Balance -1000 ml -4544 ml GEN: Awake, interactive, oriented. NAD at present. HEENT: EOMI, clear sclerae, moist oral mucosa. CV: Regular with prominent III/ systolic murmur, early, crescendo, loudest at left upper sternal border. PULM: CTA B with no R/R/W. ABD: Soft, NT/ND with active bowel sounds. Ileostomy intact. Dressing to abdominal wound intact. EXTR: Trace ankle edema. INTEG: Age related changes. Mild pallor. NEURO: No focal motor neuro deficit. IMAGING 11/08/16 CYSTOGRAPHY INDICATION: Vesicointestinal fistula. FINDINGS: The conduit reamer operator film of the pelvis shows a ureteral stent to be present with the pigtail projected over the urinary bladder region. An ostomy is seen in the right lower quadrant. A Quiñones balloon catheter is in place. Omnipaque 240 was sterilely instilled into the urinary bladder and filling was observed with fluoroscopy. Multiple spot films were done with overhead radiographs. Early filling showed no significant abnormality. At approximately 150 cc, there was left vesicoureteral reflux into the left pelvicalyceal system. At about 200 cc, irregularity of the left lateral wall of the urinary bladder was noted with an abnormal contrast collection at the left aspect of the urinary bladder. There is a thin communication between the urinary bladder and the extraluminal contrast collection. The contrast collection occupies an area of about 2.6 cm. At 250 cc, no more contrast was drip into the urinary bladder. The post drainage radiograph demonstrated persistent localized extraluminal contrast accumulation. IMPRESSION: 1. Extravasated urinary bladder contrast through a thin tract to the left para-vesicle region. This may be a localized accumulation within the bowel wall that did not progress intraluminally in the bowel or represent a localized extraluminal peritoneal collection. 2. The left ureteral stent is in good position. ASSESSMENT Karol Valladares is a 66 year old female admitted as a transfer from [facility] 11[facility]01 for [facility] care after surgery 10/10 for colovesicular fistula repair and left ureteral stenting, NSTEMI, wound dehiscence, temporarily with wound vac, now in [place] [facility] for close medical supervision of her resolving acute medical problems as well as PT/OT for deconditioning. PLAN * Deconditioning: PT/OT eval and treat. * Surgical Wound Dehiscence: Wound vac for a short time but now wound closing with dressing changes, managed per surgery. Amoxicillin/clavulanate, levofloxacin courses completed for concern of wound infection in [place] with Pseudomonas and other organisms. * Colovesicular Fistula Repair, Diverticulitis, Recurrent UTI: S/P left ureteral stenting and ileostomy. Stoma cares per protocol. Surgery following. Urology (Dr. Hankins) remains involved in her care. Amoxicillin/clavulanate, levofloxacin courses completed. Cystogram results as noted. * Abdominal Pain: Improving. [place]. * Heart Murmur: Request echo from [facility]. Is supposed to follow-up with [facility] in 6 months. * F/E/N: Regular * Prophylaxis: SCD * Code Status: Full * Dispo: Skilled care for above issues. RESOLVING ISSUES * NSTEMI: Attributed to demand ischemia. Request echo from [facility]. Is supposed to follow-up with [facility] there in 6 weeks (Dr. Duarte, [facility]). Has not been taking any anti-platelet agent. Also not noted to be on any anti-lipid therapy after discharge from [facility]. Added aspirin 11/09. Check lipid profile and start statin therapy if warranted. CHRONIC ISSUES * GERD: Pantoprazole * Hypothyroidism: Levothyroxine * COPD: Fluticasone/salmeterol * Gout: Allopurinol * Pain: Hydrocodone/acetaminophen * Constipation: Bowel regimen * HTN: Losartan, metoprolol * Insomnia: Zolpidem * CKD Stage III: Reportedly stable. Avoid nephrotoxic agents. CASSIDY HUFF MD Nov 09, 2016 12:17
[2016-11-09] MEDS: ASPIRIN 81 MG CHEW (LOW-DOSE) PO SCH (13:00)
[2016-11-09 15:39] VITALS: BP 108/53
--- NOTE | 2016-11-09 17:59 | NUR ---
Uneventful day shift. Patient sits up in recliner. Ambulates around room independently. Quiñones catheter drains clear yellow urine. Ileostomy draining soft brown stool. PRN [place] provided prior to dressing change this afternoon. Call light in reach.
--- NOTE | 2016-11-09 21:32 | NUR ---
Ambulates finch x 3 laps with standby assist x 1, no walker.
[2016-11-09] MEDS: ZOLPIDEM 5 MG (AMBIEN) TAB PO PRN (22:11)
--- NOTE | 2016-11-09 22:43 | NUR ---
B[place] and [place] given per request, abdominal dressing changed.
[2016-11-10 06:03] LABS: BASOPHILS % (AUTO) 1 % (0-2); EOSINOPHILS # (AUTO) 0.4 10^3uL; EOSINOPHILS % (AUTO) 5 % (0-4); LYMPHOCYTES # (AUTO) 2.5 X10^3; MEAN CORPUSCULAR HEMOGLOBIN 28.6 PG (26.0-34.0); MEAN CORPUSCULAR VOLUME 91 FL (80-100); MEAN PLATELET VOLUME 10.5 FL (6.0-9.5); MONOCYTES # (AUTO) 0.7 X10^3; MONOCYTES % (AUTO) 8 % (3-11); NEUTROPHILS # (AUTO) 4.7 X10^3; NEUTROPHILS % (AUTO) 56 % (51-67); PLATELET COUNT 139 10^3uL (150-450); WHITE BLOOD COUNT 8.47 10^3uL (4.0-11.0)
[2016-11-10] MEDS: LEVOTHYROXINE 50 MCG (LEVOTHROID) TABLET PO SCH (06:14)
[2016-11-10] MEDS: PANTOPRAZOLE 40 MG (PROTONIX) TAB PO SCH (06:15)
[2016-11-10 06:22] LABS: MEAN CORPUSCULAR HGB CONC 31.6 g/dL (31.0-37.0)
[2016-11-10 06:58] LABS: ALBUMIN 2.7 g/dL (3.4-5.0); ANION GAP 14.1 MEQ/L (3-15)
[2016-11-10] MEDS: FLUTICASONE/SALMETEROL HFA 230/21 MCG (ADVAIR) COMMON CANNISTER INH SCH ×2 (07:14→19:32)
--- NOTE | 2016-11-10 07:16 | NUR ---
Pt found lying in bed on RA, SPO2 96%, HR 88, RR 16 and non labored with clear BS in all lung jauregui before and after 2p Advair 230/21 via Spacer. Pt rinsed mouth post Tx.
--- NOTE | 2016-11-10 07:20 | NUR ---
Report received from Linda AVERY and care assumed.
--- NOTE | 2016-11-10 08:00 | NUR ---
Pt states ileostomy leaking. Checked on and leaking a great amount. Drg removed and bag and flange removed and pt taken to shower.
[2016-11-10 08:08] VITALS: BP 102/40
--- NOTE | 2016-11-10 08:40 | NUR ---
Pt returned to bed and new flange and bag applied after skin dried. Gauze applied in tunneling incision. Wet to dry drg applied to abdominal drg. Skin looks pink and healthy. Catheter remains in place with yellow urine. Pt tolerated procedure well.
[2016-11-10] MEDS ORDERED: ASPIRIN 81 MG CHEW (LOW-DOSE) PO SCH (09:00)
[2016-11-10] MEDS: CHOLECALCIFEROL 1000 INT UNITS (VITAMIN D3) TABLET PO SCH (09:13)
[2016-11-10] MEDS: LOSARTAN 100 MG (COZAAR) TABLET PO SCH (09:13)
[2016-11-10] MEDS: ACIDOPHILUS/LACTOBACILLUS SPOROGENES 1 TABLET PO SCH ×2 (09:13→21:04)
[2016-11-10] MEDS: CALCIUM CITRATE/VITAMIN D3 315MG/250IU (CALCITRATE +D) TABLET PO SCH (09:13)
[2016-11-10] MEDS: ALLOPURINOL 300 MG (ZYLOPRIM) TAB PO SCH (09:13)
[2016-11-10] MEDS: OMEGA-3 ACID ETHYL ESTERS 1 GM (LOVAZA) CAPSULE PO SCH (09:13)
[2016-11-10] MEDS: GLUCOSAMINE/CHONDROITIN 500MG-400MG CAPSULE PO SCH ×2 (09:13→21:04)
[2016-11-10] MEDS: meTOprolol TARTRATE 25 MG (LOPRESSOR) TABLET PO SCH ×2 (09:13→17:42)
[2016-11-10] MEDS: MULTIVITAMIN W/MINERALS (THERAGRAN M) TABLET PO SCH (09:13)
[2016-11-10] MEDS: MAGNESIUM OXIDE 400 MG (MAG-OX) TAB PO SCH (09:13)
[2016-11-10] MEDS: ASPIRIN 81 MG CHEW (LOW-DOSE) PO SCH (09:14)
--- NOTE | 2016-11-10 09:56 | Progress Note (E) ---
Progress Note Normocytic anemia noted on follow-up labs. Hgb 8.5. Likely related to recent surgery. Not currently on iron supplement so started this 11/10. Dyslipidemia noted on lipid profile. Started atorvastatin 40 mg HS, in light of recent NSTEMI. CASSIDY HUFF MD Nov 10, 2016 09:56
--- NOTE | 2016-11-10 11:05 | NUR ---
Pt ambulating in finch with . Ambulated the halls x 3 with walker. Pt tolerated it well. Denies needs at present.
--- NOTE | 2016-11-10 12:05 | NUR ---
Dr. France in to see pt.
--- NOTE | 2016-11-10 12:13 | Progress Note (E) ---
Progress Note Surgery note Subjective: Patient feels well. Minimal pain. No nausea. Eating well, but so so appetite. Ambulating well and in good spirits. Objective: Vitals stable. In no distress. Abdomen soft, nontender. Incision clean, granulating. Stoma functional with semiformed, brown stool. Labs noted. Hgb 8.5 is similar to prior value of 7.8. Patient is on iron. BUN 25, Albumin 2.7 Impression: Patient is stable. Recommendations: Continue current wound care. Adequate fluid intake encouraged (including protein supplements). Continue ambulation, PT and OT. MARIFER GUZMAN MD Nov 10, 2016 12:13
[2016-11-10] MEDS: FERROUS SULFATE 325 MG (IRON) TABLET PO SCH ×2 (12:51→17:42)
--- NOTE | 2016-11-10 15:55 | NUR ---
Abdominal drg changed wet to dry. Pt emptied her ileostomy bag and had 200 cc in it. Pt tolerated having drg changed well. Pt ambulated in the finch with walker around the nurses stations x 3 and did very well. Denies pain. Will continue to monitor.
[2016-11-10] MEDS: ATORVASTATIN 40 MG (LIPITOR) TABLET PO SCH (21:04)
[2016-11-10] MEDS: HYDROcodone/APAP 5 MG/325 MG (NORCO) TAB PO PRN (22:43)
[2016-11-10] MEDS: ZOLPIDEM 5 MG (AMBIEN) TAB PO PRN (22:43)
--- NOTE | 2016-11-11 03:18 | NUR ---
Stoma appliance leaking from right lateral side. Appliance changed.
[2016-11-11] MEDS: LEVOTHYROXINE 50 MCG (LEVOTHROID) TABLET PO SCH (06:18)
[2016-11-11] MEDS: PANTOPRAZOLE 40 MG (PROTONIX) TAB PO SCH (06:18)
--- NOTE | 2016-11-11 06:32 | NUR ---
Patient relates daughter has been bringing in "Protein shakes" inquired what was in the shakes d/t daily "blow outs", stated used to be fresh fruit now "naked juice", maybe spinach, almond milk, talked about low fiber diet and other sources of protein.
[2016-11-11 07:58] VITALS: BP 100/48
[2016-11-11] MEDS: FLUTICASONE/SALMETEROL HFA 230/21 MCG (ADVAIR) COMMON CANNISTER INH SCH ×2 (08:38→20:06)
--- NOTE | 2016-11-11 10:00 | PT Daily Note Inpatient (E) ---
PT Daily Treatment Service Date/Time 11/11/16, 09:59 Medical Diagnosis: (1) Esophagogastroduodenoscopy (2) Ileostomy in place ICD Code: Z93.2 (3) Hypothyroidism (acquired) ICD Code: E03.9 (4) Postoperative ileus ICD Code: K91.3 (5) Hypertensive urgency ICD Code: I16.0 (6) Diverticulitis (7) Status post colectomy ICD Code: Z90.49 Physical Therapy: (1) Leukocytosis ICD Code: D72.829 (2) Anemia ICD Code: D64.9 (3) Ileostomy in place ICD Code: Z93.2 (4) Hypertensive urgency ICD Code: I16.0 (5) Chest pain ICD Code: R07.9 (6) Hypothyroidism (acquired) ICD Code: E03.9 (7) Postoperative ileus ICD Code: K91.3 Precaution/Isolation: Standard Precautions Resuscitation Status: Full Code Fall Level: Low Risk 25-50 Subjective Pt just finished shower and waiting to have incision dressed. Agrees to do bed exercises. Oxygen Delivery: Room air O2 liters/minute: 0 Treatments Sit, Stand, Supine: Supine, Sitting Extremity: Both Lower Extremity Assistance: AROM Repetition: 1 x 20 Exercise: AP, QS, Heel Slides, Hip Abduction, SLR, LAQ, Hip Flexion, Bridge Transfers Sit-Supine: Complete [place] Sitting Edge of Bed: Complete [place] Education/Plan Education Assessment Tolerated exercises well with no increased pain. Plan Patient will be seen: Daily Friday-Friday Discharge Recommendations: Caregiver support Coding Time In: 9:36 Time Out: 9:57 Total Minutes: 21 Charges: 31994 Exercise Therp 15 m (21 minutes) Jerad Raza PTA November 11, 2016 10:00
[2016-11-11] MEDS: CHOLECALCIFEROL 1000 INT UNITS (VITAMIN D3) TABLET PO SCH (10:06)
[2016-11-11] MEDS: CALCIUM CITRATE/VITAMIN D3 315MG/250IU (CALCITRATE +D) TABLET PO SCH (10:06)
[2016-11-11] MEDS: MULTIVITAMIN W/MINERALS (THERAGRAN M) TABLET PO SCH (10:06)
[2016-11-11] MEDS: meTOprolol TARTRATE 25 MG (LOPRESSOR) TABLET PO SCH ×2 (10:06→17:56)
[2016-11-11] MEDS: ACIDOPHILUS/LACTOBACILLUS SPOROGENES 1 TABLET PO SCH ×2 (10:06→21:31)
[2016-11-11] MEDS: ALLOPURINOL 300 MG (ZYLOPRIM) TAB PO SCH (10:06)
[2016-11-11] MEDS: ASPIRIN 81 MG CHEW (LOW-DOSE) PO SCH (10:06)
[2016-11-11] MEDS: OMEGA-3 ACID ETHYL ESTERS 1 GM (LOVAZA) CAPSULE PO SCH (10:06)
[2016-11-11] MEDS: LOSARTAN 100 MG (COZAAR) TABLET PO SCH (10:06)
[2016-11-11] MEDS: FERROUS SULFATE 325 MG (IRON) TABLET PO SCH ×2 (10:06→17:56)
[2016-11-11] MEDS: GLUCOSAMINE/CHONDROITIN 500MG-400MG CAPSULE PO SCH ×2 (10:06→21:31)
[2016-11-11] MEDS: MAGNESIUM OXIDE 400 MG (MAG-OX) TAB PO SCH (10:11)
--- NOTE | 2016-11-11 10:15 | NUR ---
Patient reports she is better able to tolerate dressing changes as each day goes on. I do not have a comparison, but the patient states staff has been able to use less packing over the last few days. Skin around the abdominal wound is pink and intact.
--- NOTE | 2016-11-11 10:45 | NUR ---
Quiñones catheter changed per order. 16 telugu used without difficulty. A small amount of urine was noted in the tubing but I will continue to monitor for a sample to send to lab.
--- NOTE | 2016-11-11 12:14 | Progress Note (E) ---
Progress Note persistent leak on cystogram catheter twisted rec cath change, rtc 3 weeks Deven Hankins MD November 11, 2016 12:14
--- NOTE | 2016-11-11 13:30 | NUR ---
A urine sample from the new burt catheter was sent to lab.
--- NOTE | 2016-11-11 14:05 | NUR ---
Edith is here to consult with the patient on low fiber diet.
[2016-11-11 14:21] LABS: BILIRUBIN,URINE Negative (Negative); COLOR,URINE Yellow; GLUCOSE, URINE (UA) Negative (Negative); LEUKOCYTE ESTERASE ,URINE 2+ (Negative); PH,URINE 5.5 (5.0 - 8.0); UROBILINOGEN,URINE 0.2 mg/dL (0.2-1.0)
[2016-11-11 14:22] LABS: CLARITY,URINE Slightly Cloudy
[2016-11-11 14:24] LABS: URINE CENTRIFUGED VOLUME 12 mL
--- NOTE | 2016-11-11 14:40 | NUR ---
Nutrition Follow Up: Eating an average of 80% of meals, with low-fiber diet. Visited with pt. and re: meals. Her daughter has been bringing her a protein shake that has high-fiber fruits/vegetables included, but pt. stated she had been getting Ensure with her trays instead of the homemade protein shake that I had ordered--and she refuses to drink Ensure. She also reported that she hasn't been getting what she circled on her menu, and said she "would rather go hungry than eat something she doesn't like." I discussed her diet with the dietary staff and discovered they've been sending the wrong menu (surgical soft, which is much more restrictive than simply low fiber.) Weight today: N/A--has not been weighed since admission Labs: triglycerides 197, cholesterol 130, LDL 66, HDL 25 1. Will request weight from nursing to compare over the past week. 2. Will continue low-fiber diet as ordered and monitor intake for adequacy. Pt. agreed to try various protein shakes as long as they are not Ensure. Dietary staff made her a peach smoothie this afternoon, and I asked pt. to give us feedback on whether she likes it or not. I also changed her menu to the regular menu which I then modified to be low fiber. Pt. was very pleased with this. 3. Provided handout for ileostomy/low fiber foods, along with a goal of <13 g. fiber/day. I also included a list of fiber in common foods to help her and her daughter know what to put in her homemade smoothies. And I included a list of smoothies/protein shakes to make at home.
--- NOTE | 2016-11-11 16:00 | NUR ---
Patient walked the finch independently with the walker. She dressed herself today. She also emptied her ileostomy independently and has been receptive to education.
--- NOTE | 2016-11-11 16:14 | OT Daily Note Inpatient (E) ---
OT Daily Treatment Service Date/Time 11/11/16, 16:13 Primary Diagnosis: (1) Esophagogastroduodenoscopy (2) Ileostomy in place ICD Code: Z93.2 (3) Hypothyroidism (acquired) ICD Code: E03.9 (4) Postoperative ileus ICD Code: K91.3 (5) Hypertensive urgency ICD Code: I16.0 (6) Diverticulitis (7) Status post colectomy ICD Code: Z90.49 Treatment Diagnosis: (1) Weakness ICD Code: R53.1 Onset Date: 10/28/16 Start of Care Date: Nov 04, 2016 Precaution/Isolation: Standard Precautions Fall Level: Low Risk 25-50 Resuscitation Status: Full Code Current Activity: Agrees to participate, Up in chair I really think Im going to be able to do this with my colotomy bag Pain Level: 0 Oxygen Needed: Room air O2 liters/minute: 0 Current Function Assessment Cognition Attention: Intact Memory: Intact Safety/Judgement: Intact Skin and Positioning Comment Stoma red/pink healthy tissue Bed Mobility/Transfers Sit to Stand: Independent Chair Transfer: Independent Sitting Balance: WFL Dressing Comment Educated in threading Quiñones through pants. Education/Assessment Education Provided: Assistive equipment, Home management/safety (Provided education to pt with handouts on placement of grab bars in the shower to improve safety with transfers and during showering task. Additionally provided pt with education on a transfer style tub bench to reduce risk of falls. Provided information on wear to obtain equipment. ), Other (Colonostomy education for emptying bowel, burping and taking bag on/off. Some difficulty clipping bag.) Education Evalution: Demonstrate understanding, Peforms return demo (Pt only had a little trouble clipping the bag ) Teaching Method: Demonstration, Practice/repetition, Verbal Readiness to Learn: Excellent Barriers to Learning: Other Treatment Tolerance: Thiago trmnt w/o complaints Problems Impacting Treatment: Dizziness Rehabilitation Potential: Good Pt will benefit from further skilled OT to learn/education for cutting the stoma opening POC Plan of Care Problems Identified: Activity Tolerance Short Term Goals Will Dress Upper Extremity: Independently (min a for bra ) Will Dress Lower Extremity: Independently (SBA with v/c) Spool Maker Goals Will do Tub/Shower Transfer: Independently (SBA for entering and exiting independent) Will Bathe Self: Independently LTG # 1 Pt will tolerate 45 minutes of therapy with 1-2 rest breaks and demonstration of good safety. (tolerated 41 min of therapy with frequent rest breaks) CPT/G Codes Time In: 1508 Time Out: 1540 Total Minutes: 32 CPT Codes: 60791 Shirley Blackburn EA November 11, 2016 16:14
--- NOTE | 2016-11-11 19:00 | NUR ---
Held the patient's a.m. dose of mag ox due to explosive watery stools. These episodes have been bad enough that the appliance had to be changed on each shift for the past four shifts. So far, this has helped as the patient had 2 loose stools that she was able to empty from the ileostomy herself today.
--- NOTE | 2016-11-11 20:00 | NUR ---
Patient resting in chair. No discomforts voiced. Denies nausea, or pain at this time. Will call later for pain med.
--- NOTE | 2016-11-11 20:10 | NUR ---
Pt found sitting in her chair on RA, SPO2 98%, HR 79, RR 16 and non labored before and after 2p Advair 230/21 via Spacer. Mouth rinsed post Tx.
[2016-11-11] MEDS: ATORVASTATIN 40 MG (LIPITOR) TABLET PO SCH (21:31)
[2016-11-11] MEDS: HYDROcodone/APAP 5 MG/325 MG (NORCO) TAB PO PRN (21:36)
[2016-11-11] MEDS: ZOLPIDEM 5 MG (AMBIEN) TAB PO PRN (21:36)
--- NOTE | 2016-11-11 21:36 | NUR ---
[place] and Ambien administered per request for sleep and pain. Abdominal dressing changed. Wound looks good. Good granulation tissue. No drainage. Dressing re-applied as ordered. Patient tolerates well. Ileostomy bag intact with semi-soft stool in bag.
--- NOTE | 2016-11-12 06:30 | NUR ---
Patient rested well tonight. Ileostomy bag emptied, 300cc brown liquid stool. Antifungal creme, thin layer applied to reddened areas on lower abdominal apron area. Quiñones cath drains cloudy yellow urine. No needs or concerns at this time.
[2016-11-12] MEDS: PANTOPRAZOLE 40 MG (PROTONIX) TAB PO SCH (06:34)
[2016-11-12] MEDS: LEVOTHYROXINE 50 MCG (LEVOTHROID) TABLET PO SCH (06:34)
[2016-11-12 07:40] VITALS: BP 102/48
[2016-11-12] MEDS: FLUTICASONE/SALMETEROL HFA 230/21 MCG (ADVAIR) COMMON CANNISTER INH SCH ×2 (08:03→20:05)
[2016-11-12] MEDS ORDERED: MAGNESIUM 1 GM/100 ML IVPB 100 ML IV ONE (08:40)
[2016-11-12 09:13] LABS: BASOPHILS % (AUTO) 1 % (0-2); EOSINOPHILS # (AUTO) 0.6 10^3uL; EOSINOPHILS % (AUTO) 7 % (0-4); LYMPHOCYTES # (AUTO) 2.2 X10^3; MEAN CORPUSCULAR HEMOGLOBIN 28.4 PG (26.0-34.0); MEAN CORPUSCULAR VOLUME 91 FL (80-100); MEAN PLATELET VOLUME 10.5 FL (6.0-9.5); MONOCYTES # (AUTO) 0.5 X10^3; MONOCYTES % (AUTO) 6 % (3-11); NEUTROPHILS # (AUTO) 5.6 X10^3; NEUTROPHILS % (AUTO) 63 % (51-67); PLATELET COUNT 153 10^3uL (150-450); WHITE BLOOD COUNT 8.93 10^3uL (4.0-11.0)
[2016-11-12 09:14] LABS: MEAN CORPUSCULAR HGB CONC 31.2 g/dL (31.0-37.0)
[2016-11-12] MEDS ORDERED: SODIUM CHLORIDE FLUSH 10 ML ONE (09:39)
[2016-11-12 09:53] LABS: ALBUMIN 3.1 g/dL (3.4-5.0); ANION GAP 16.1 MEQ/L (3-15); CALCULATED IONIZED CALCIUM 4.4 mg/dL (3.8-4.6); TOTAL PROTEIN 6.4 g/dL (6.4-8.5)
[2016-11-12] MEDS: CALCIUM CITRATE/VITAMIN D3 315MG/250IU (CALCITRATE +D) TABLET PO SCH (10:14)
[2016-11-12] MEDS: FERROUS SULFATE 325 MG (IRON) TABLET PO SCH ×2 (10:14→18:32)
[2016-11-12] MEDS: CHOLECALCIFEROL 1000 INT UNITS (VITAMIN D3) TABLET PO SCH (10:14)
[2016-11-12] MEDS: MULTIVITAMIN W/MINERALS (THERAGRAN M) TABLET PO SCH (10:14)
[2016-11-12] MEDS: OMEGA-3 ACID ETHYL ESTERS 1 GM (LOVAZA) CAPSULE PO SCH (10:14)
[2016-11-12] MEDS: LOSARTAN 100 MG (COZAAR) TABLET PO SCH (10:14)
[2016-11-12] MEDS: ALLOPURINOL 300 MG (ZYLOPRIM) TAB PO SCH (10:14)
[2016-11-12] MEDS: GLUCOSAMINE/CHONDROITIN 500MG-400MG CAPSULE PO SCH ×2 (10:14→20:23)
[2016-11-12] MEDS: FAMOTIDINE 20 MG (PEPCID) TABLET PO SCH ×2 (10:15→20:23)
[2016-11-12] MEDS: ACIDOPHILUS/LACTOBACILLUS SPOROGENES 1 TABLET PO SCH ×2 (10:15→20:23)
[2016-11-12] MEDS: ASPIRIN 81 MG CHEW (LOW-DOSE) PO SCH (10:15)
[2016-11-12] MEDS: meTOprolol TARTRATE 25 MG (LOPRESSOR) TABLET PO SCH ×2 (10:15→18:32)
--- NOTE | 2016-11-12 10:15 | OT Daily Note Inpatient (E) ---
OT Daily Treatment Service Date/Time 11/12/16, 10:09 Primary Diagnosis: (1) Esophagogastroduodenoscopy (2) Ileostomy in place ICD Code: Z93.2 (3) Hypothyroidism (acquired) ICD Code: E03.9 (4) Postoperative ileus ICD Code: K91.3 (5) Hypertensive urgency ICD Code: I16.0 (6) Diverticulitis (7) Status post colectomy ICD Code: Z90.49 Treatment Diagnosis: (1) Weakness ICD Code: R53.1 Onset Date: 10/28/16 Start of Care Date: Nov 04, 2016 Precaution/Isolation: Standard Precautions Fall Level: Low Risk 25-50 Resuscitation Status: Full Code Current Activity: Agrees to participate I think the video is helping me understand how to do it better. Pain Level: 0 Oxygen Needed: Room air O2 liters/minute: 0 Current Function Assessment Cognition Attention: Intact Memory: Intact Safety/Judgement: Intact Education/Assessment Education Provided: Assistive equipment, Home management/safety (Provided education to pt with handouts on placement of grab bars in the shower to improve safety with transfers and during showering task. Additionally provided pt with education on a transfer style tub bench to reduce risk of falls. Provided information on wear to obtain equipment. ), Other (Pt educated in measuring stoma, how to take ostomy bag on/off. Video ,verbal and demo used for ed. Plan to do herself at next visit) Education Evalution: Demonstrate understanding, Peforms return demo (Pt only had a little trouble clipping the bag ) Teaching Method: Demonstration, Practice/repetition, Verbal Readiness to Learn: Excellent Barriers to Learning: Other Treatment Tolerance: Thiago trmnt w/o complaints Problems Impacting Treatment: Dizziness Rehabilitation Potential: Good POC Plan of Care Problems Identified: Activity Tolerance Short Term Goals Will Dress Upper Extremity: Independently (min a for bra ) Will Dress Lower Extremity: Independently (SBA with v/c) Marine Gear Keeper Goals Will do Tub/Shower Transfer: Independently (SBA for entering and exiting independent) Will Bathe Self: Independently LTG # 1 Pt will tolerate 45 minutes of therapy with 1-2 rest breaks and demonstration of good safety. (tolerated 41 min of therapy with frequent rest breaks) CPT/G Codes Time In: 809 Time Out: 837 Total Minutes: 29 CPT Codes: 35878 ADL Shirley Decker November 12, 2016 10:15
--- NOTE | 2016-11-12 10:45 | NUR ---
Initiated IV access in the patient's left hand- #24 gauge. She needs to receive a dose of IV magnesium this morning for a mag. value of 1.1.
--- NOTE | 2016-11-12 11:26 | Progress Note (E) ---
Progress Note S: Awake and alert- having increased loose stools and blowouts, no pain reported , ate better today for breakfast. O: I & O Past 24 hrs 11/12/16 07:00 Intake Total 1534 ml Output Total 1900 ml Balance -366 ml Intake Oral 1534 ml Output Urine Total 1250 ml Stool Total 650 ml Vital Signs Date Time Temp Pulse Resp B/P Pulse Ox O2 Delivery O2 Flow Rate FiO2 11/12/16 07:40 97.2 89 18 102/48 97 Room air GEN: Awake, interactive, oriented. NAD at present. up to the chair HEENT: EOMI, clear sclerae, moist oral mucosa. CV: Regular with prominent III/ systolic murmur, early, crescendo, loudest at left upper sternal border. PULM: CTA B with no R/R/W. ABD: Soft, NT/ND with active bowel sounds. Ileostomy intact. Dressing to abdominal wound intact. stoma pink EXTR: Trace ankle edema. INTEG: Age related changes. Mild pallor. NEURO: No focal motor neuro deficit. IMAGING 11/08/16 CYSTOGRAPHY INDICATION: Vesicointestinal fistula. FINDINGS: The agile business analyst film of the pelvis shows a ureteral stent to be present with the pigtail projected over the urinary bladder region. An ostomy is seen in the right lower quadrant. A Quiñones balloon catheter is in place. Omnipaque 240 was sterilely instilled into the urinary bladder and filling was observed with fluoroscopy. Multiple spot films were done with overhead radiographs. Early filling showed no significant abnormality. At approximately 150 cc, there was left vesicoureteral reflux into the left pelvicalyceal system. At about 200 cc, irregularity of the left lateral wall of the urinary bladder was noted with an abnormal contrast collection at the left aspect of the urinary bladder. There is a thin communication between the urinary bladder and the extraluminal contrast collection. The contrast collection occupies an area of about 2.6 cm. At 250 cc, no more contrast was drip into the urinary bladder. The post drainage radiograph demonstrated persistent localized extraluminal contrast accumulation. IMPRESSION: 1. Extravasated urinary bladder contrast through a thin tract to the left para-vesicle region. This may be a localized accumulation within the bowel wall that did not progress intraluminally in the bowel or represent a localized extraluminal peritoneal collection. 2. The left ureteral stent is in good position. Laboratory Results Past 24 Hrs 11/11/16 14:05: Urine Bacteria 1+, Urine Bilirubin Negative, Urine Blood 2+, Urine Clarity Slightly cloudy, Urine Collection Type Catheter, Urine Color Yellow, Urine Glucose (UA) Negative, Urine Hyaline Casts 2+, Urine Ketones Negative, Urine Leukocyte Esterase 2+, Urine Microscopic RBC 10-20, Urine Nitrite Negative, Urine Protein Negative, Urine Specific [place] <=1.005, Urine Squamous Epithelial Cells 0-2, Urine Urobilinogen 0.2, Urine WBC 20-50, Urine pH 5.5, Volume Urine Centrifuged 12 ml 11/12/16 05:40: Magnesium Level 1.1 11/12/16 08:50: Alanine Aminotransferase (ALT/SGPT) 22, Albumin 3.1, Albumin/Globulin Ratio 0.939, Alkaline Phosphatase 88, Anion Gap 16.1, Aspartate Amino Transf (AST/SGOT ) 17, BUN/Creatinine Ratio 21, Basophils # (Auto) 0.1, Basophils (%) (Auto) 1, Blood Urea Nitrogen 23, Calcium Level 9.5, Calcium/Ionized Calcium Ratio 4.4, Calculated Osmolality 277, Carbon Dioxide Level 21, Chloride Level 109, Creatinine 1.08, Eosinophils # (Auto) 0.6, Eosinophils (%) (Auto) 7, Estimat Glomerular Filtration Rate 61.0, Estimated GFR (Non- 50.5, Free Thyroxine (T4) Calculated 1.37, Glucose Level 104, Hematocrit 29.20, Hemoglobin 9.1, Lymphocytes # (Auto) 2.2, Lymphocytes (%) (Auto) 24, Mean Corpuscular Hemoglobin 28.4, Mean Corpuscular Hemoglobin Concent 31.2, Mean Corpuscular Volume 91, Mean Platelet Volume 10.5, Monocytes # (Auto) 0.5, Monocytes (%) ( Auto) 6, Neutrophils # (Auto) 5.6, Neutrophils (%) (Auto) 63, Platelet Count 153 , Potassium Level 4.9, Red Blood Count 3.20, Red Cell Distribution Width 15.9, Sodium Level 141, Thyroid Stimulating Hormone (TSH) 6.95, Total Bilirubin 0.5, Total Protein 6.4, White Blood Count 8.93 ASSESSMENT Karol Valladares is a 66 year old female admitted as a transfer from [facility] 11/01 for prison care after surgery 10/10 for colovesicular fistula repair and left ureteral stenting, NSTEMI, wound dehiscence, temporarily with wound vac, now in prison for close medical supervision of her resolving acute medical problems as well as PT/OT for deconditioning. PLAN * Deconditioning: PT/OT eval and treat. * Surgical Wound Dehiscence: Wound vac for a short time but now wound closing with dressing changes, managed per surgery. Amoxicillin/clavulanate, levofloxacin courses completed for concern of wound infection in [place] with Pseudomonas and other organisms. * Colovesicular Fistula Repair, Diverticulitis, Recurrent UTI: S/P left ureteral stenting and ileostomy. Stoma cares per protocol. Surgery following. Urology (Dr. Hankins) remains involved in her care. Amoxicillin/clavulanate, levofloxacin courses completed. Cystogram results as noted. * Abdominal Pain: Improving. Ranger. * Heart Murmur: Request echo from [facility]. Is supposed to follow-up with fat pressroom worker there in 6 months. * F/E/N: Regular * Prophylaxis: SCD * Code Status: Full * Dispo: Skilled care for above issues. Continue present management- changed pantaprazole to pepcid, replacing magnesium IV, Requested daughter to not bring protein shakes in due to diarrhea increased. No Naked juice. Follow magnesium levels. RESOLVING ISSUES * NSTEMI: Attributed to demand ischemia. Request echo from [facility]. Is supposed to follow-up with fat pressroom worker there in 6 weeks (Dr. Duarte, [facility]). Has not been taking any anti-platelet agent. Also not noted to be on any anti-lipid therapy after discharge from [place]. Added aspirin 11/09. Check lipid profile and start statin therapy if warranted. CHRONIC ISSUES * GERD: Pantoprazole * Hypothyroidism: Levothyroxine * COPD: Fluticasone/salmeterol * Gout: Allopurinol * Pain: Hydrocodone/acetaminophen * Constipation: Bowel regimen * HTN: Losartan, metoprolol * Insomnia: Zolpidem * CKD Stage III: Reportedly stable. Avoid nephrotoxic agents. Pt seen and examined with PROCESS SUPERVISOR, agree with above. Pt has been taking MagOx 400mg daily per cardiology. It was help yesterday only and Mg 1.1 today. She has also been having "explosive" stools into her ileostomy. Will continue to hold her po Mag and give IV dose with repeat lab at 1800. Meds also adjusted and additional lab ordered to look for cause of hypomagnesemia. However, this may be due to diarrhea and malabsorption from having the ileostomy. Will follow. Fatimah Whitley APRN November 12, 2016 11:26 Jimmy Reyna MD November 12, 2016 20:53
--- NOTE | 2016-11-12 15:40 | NUR ---
The patient went on a trip outside with PT this afternoon. She walked around for about 30 minutes.
--- NOTE | 2016-11-12 15:55 | OT Daily Note Inpatient (E) ---
OT Daily Treatment Service Date/Time 11/12/16, 15:51 Primary Diagnosis: (1) Esophagogastroduodenoscopy (2) Ileostomy in place ICD Code: Z93.2 (3) Hypothyroidism (acquired) ICD Code: E03.9 (4) Postoperative ileus ICD Code: K91.3 (5) Hypertensive urgency ICD Code: I16.0 (6) Diverticulitis (7) Status post colectomy ICD Code: Z90.49 Treatment Diagnosis: (1) Weakness ICD Code: R53.1 Onset Date: 10/28/16 Start of Care Date: Nov 04, 2016 Precaution/Isolation: Standard Precautions Fall Level: Low Risk 25-50 Resuscitation Status: Full Code Pt reports feeling good about burping and emptying the colostomy bag. Would like 1-2 practices actually changing it. Home health is going to come twice a day to change dressing on incision. Thinking about getting a tub bench. Pain Level: 0 Oxygen Needed: Room air O2 liters/minute: 0 Current Function Assessment Cognition Attention: Intact Memory: Intact Safety/Judgement: Intact Additional Assessment/Comments Provided education for obtaining a transfer tub style bench. Additionally discussed working with nursing to practice changing colostomy bag. Pt verbalized understanding. Provided pt with website and model of recommendation of transfer style tub bench. Treatments Strengthening Exercise Upper Extremity Strength Exerc : Comment In standing, pt participated in BUE strengthening exercises with use of green theraband to increase strength and endurance for self care tasks and simple IADL tasks. Pt able to complete 6 x 15 exercises with no noted loss of balance and no noted SOB. Education/Assessment Education Provided: Assistive equipment, Home management/safety (Provided education to pt with handouts on placement of grab bars in the shower to improve safety with transfers and during showering task. Additionally provided pt with education on a transfer style tub bench to reduce risk of falls. Provided information on wear to obtain equipment. ), Other (Pt educated in measuring stoma, how to take ostomy bag on/off. Video ,verbal and demo used for ed. Plan to do herself at next visit) Education Evalution: Demonstrate understanding, Peforms return demo (Pt only had a little trouble clipping the bag ) Teaching Method: Demonstration, Practice/repetition, Verbal Readiness to Learn: Excellent Barriers to Learning: Other Treatment Tolerance: Thiago trmnt w/o complaints Problems Impacting Treatment: Dizziness Rehabilitation Potential: Good POC Plan of Care Problems Identified: Activity Tolerance Short Term Goals Will Dress Upper Extremity: Independently (min a for bra ) Will Dress Lower Extremity: Independently (SBA with v/c) Sas Developer Analyst Goals Will do Tub/Shower Transfer: Independently (SBA for entering and exiting independent) Will Bathe Self: Independently LTG # 1 Pt will tolerate 45 minutes of therapy with 1-2 rest breaks and demonstration of good safety. (tolerated 41 min of therapy with frequent rest breaks) CPT/G Codes Time In: 14:05 Time Out: 14:32 Total Minutes: 29 (07/28 ADL, 07/27 TE) CPT Codes: 79851 Exercise Ther (07/27 ), 36773 ADL EA (07/28) JUAN PATTERSON OT November 12, 2016 15:55
--- NOTE | 2016-11-12 16:49 | PT Daily Note Inpatient (E) ---
PT Daily Treatment Service Date/Time 11/12/16, 16:44 Medical Diagnosis: (1) Esophagogastroduodenoscopy (2) Ileostomy in place ICD Code: Z93.2 (3) Hypothyroidism (acquired) ICD Code: E03.9 (4) Postoperative ileus ICD Code: K91.3 (5) Hypertensive urgency ICD Code: I16.0 (6) Diverticulitis (7) Status post colectomy ICD Code: Z90.49 Physical Therapy: (1) Leukocytosis ICD Code: D72.829 (2) Anemia ICD Code: D64.9 (3) Ileostomy in place ICD Code: Z93.2 (4) Hypertensive urgency ICD Code: I16.0 (5) Chest pain ICD Code: R07.9 (6) Hypothyroidism (acquired) ICD Code: E03.9 (7) Postoperative ileus ICD Code: K91.3 Precaution/Isolation: Standard Precautions Resuscitation Status: Full Code Fall Level: Low Risk 25-50 Subjective Patient resting in room with her present this date. The patient is cooperative with therapy participation this date and is willing to ambulate outside. The patient denies pain this date. Oxygen Delivery: Room air O2 liters/minute: 0 Treatments Sit, Stand, Supine: Sitting Extremity: Both Lower Extremity Repetition: 2 x 15 Resistance: Green Band Exercise: Other (knee flexion RROm) Transfers Sit-Stand from bed: Modified Miles Stand-Sit: Modified Miles Gait Ambulation: Modified Miles Distance Walked: 1000 + feet indoors to outdoors ; 600 + feet Patient ambulates indoors to outdoors on multiple even and uneven surfaces without difficulty and no fatigue. She ambulates/stands over 15 minutes without a rest break. Weight Bearing Status: Full Assistive Device: FWW Gait Assist: Modified Miles PT also created a dignitiy bag for patient's catheter. Education/Plan Education Discussed patient meeting her therapy goals and recommendation for her to transition back to home soon when she is medically ready and OT agrees. Assessment Patient is making excellent progress with minimal fatigue this date with longer distance ambulation. Plan Recommend discharge planning to home within the next couple of days. Continue to work on outdoor ambulation. Patient will be seen: Daily Friday-Friday Discharge Recommendations: Caregiver support Coding Time In: 1535 Time Out: 1631 Total Minutes: 46 Charges: 48260 Gait Training 15 mi, 95144 Ther Activity GABRIELA CARTER PT November 12, 2016 16:49
--- NOTE | 2016-11-12 17:00 | NUR ---
Ostomy appliance changed due to leaking. The appliance has lasted since caustic cresylate shift superintendent Friday.
--- NOTE | 2016-11-12 20:10 | NUR ---
Pt found sitting in her chair on RA, SPO2 99%, HR 96, RR 16 with clear BS. 2p Advair 230/21 via spacer, mouth rinsed post Tx.
[2016-11-12] MEDS: ATORVASTATIN 40 MG (LIPITOR) TABLET PO SCH (20:23)
[2016-11-12] MEDS: MAGNESIUM 1 GM/100 ML IVPB 100 ML IV SCH ×2 (20:24→21:48)
[2016-11-12] MEDS: ZOLPIDEM 5 MG (AMBIEN) TAB PO PRN (21:47)
[2016-11-12] MEDS: HYDROcodone/APAP 5 MG/325 MG (NORCO) TAB PO PRN (21:47)
[2016-11-13] MEDS: LEVOTHYROXINE 50 MCG (LEVOTHROID) TABLET PO SCH (06:15)
[2016-11-13 06:55] LABS: ALBUMIN 2.8 g/dL (3.4-5.0); ANION GAP 13.9 MEQ/L (3-15); CALCULATED IONIZED CALCIUM 4.2 mg/dL (3.8-4.6); TOTAL PROTEIN 6.1 g/dL (6.4-8.5)
--- NOTE | 2016-11-13 07:15 | NUR ---
Report received from Mark AVERY and care assumed.
--- NOTE | 2016-11-13 07:35 | NUR ---
Pt is awake and assessments completed. Pt denies any pain at present.
[2016-11-13] MEDS: FLUTICASONE/SALMETEROL HFA 230/21 MCG (ADVAIR) COMMON CANNISTER INH SCH ×2 (08:17→19:40)
[2016-11-13 08:18] VITALS: BP 141/60
[2016-11-13] MEDS: MULTIVITAMIN W/MINERALS (THERAGRAN M) TABLET PO SCH (08:35)
[2016-11-13] MEDS: ACIDOPHILUS/LACTOBACILLUS SPOROGENES 1 TABLET PO SCH ×2 (08:36→21:42)
[2016-11-13] MEDS: LOSARTAN 100 MG (COZAAR) TABLET PO SCH (08:36)
[2016-11-13] MEDS: meTOprolol TARTRATE 25 MG (LOPRESSOR) TABLET PO SCH ×2 (08:36→18:20)
[2016-11-13] MEDS: GLUCOSAMINE/CHONDROITIN 500MG-400MG CAPSULE PO SCH ×2 (08:36→21:43)
[2016-11-13] MEDS: FERROUS SULFATE 325 MG (IRON) TABLET PO SCH ×2 (08:36→18:20)
[2016-11-13] MEDS: FAMOTIDINE 20 MG (PEPCID) TABLET PO SCH ×2 (08:36→21:43)
[2016-11-13] MEDS: CHOLECALCIFEROL 1000 INT UNITS (VITAMIN D3) TABLET PO SCH (08:36)
[2016-11-13] MEDS: ALLOPURINOL 300 MG (ZYLOPRIM) TAB PO SCH (08:36)
[2016-11-13] MEDS: CALCIUM CITRATE/VITAMIN D3 315MG/250IU (CALCITRATE +D) TABLET PO SCH (08:36)
[2016-11-13] MEDS: ASPIRIN 81 MG CHEW (LOW-DOSE) PO SCH (08:36)
--- NOTE | 2016-11-13 08:40 | NUR ---
Pt up to shower, during the shower, the ileostomy flange came loose and needed to be changed. Pt ambulated back to room without difficulty.
[2016-11-13] MEDS ORDERED: NS IV 500 ML 500 ML IV SCH (10:05)
--- NOTE | 2016-11-13 10:15 | NUR ---
Pt did her own ostomy care today. She replaced the flange and put on the bag and did a great job. Drg of wet to dry was applied to incision area, packing gauze applied to tunneling area and NS wet 4 x4 applied to incision area and medipore tape used to secure drg. Incision appears pink and healthy. Pt tolerated the procedure well.
--- NOTE | 2016-11-13 11:00 | NUR ---
PT present to take pt to department. Pt walked to PT with a cane and stand by assist of two staff members.
--- NOTE | 2016-11-13 12:35 | NUR ---
Pt returned to room by one staff member. Pt c/o pain 11/20, requested pain medication. [place] tab 1 po given for pain.
[2016-11-13] MEDS: OMEGA-3 ACID ETHYL ESTERS 1 GM (LOVAZA) CAPSULE PO SCH (12:44)
[2016-11-13] MEDS: HYDROcodone/APAP 5 MG/325 MG (NORCO) TAB PO PRN ×2 (12:48→21:50)
--- NOTE | 2016-11-13 13:03 | PT Daily Note Inpatient (E) ---
PT Daily Treatment Service Date/Time 11/13/16, 12:53 Medical Diagnosis: (1) Esophagogastroduodenoscopy (2) Ileostomy in place ICD Code: Z93.2 (3) Hypothyroidism (acquired) ICD Code: E03.9 (4) Postoperative ileus ICD Code: K91.3 (5) Hypertensive urgency ICD Code: I16.0 (6) Diverticulitis (7) Status post colectomy ICD Code: Z90.49 Physical Therapy: (1) Leukocytosis ICD Code: D72.829 (2) Anemia ICD Code: D64.9 (3) Ileostomy in place ICD Code: Z93.2 (4) Hypertensive urgency ICD Code: I16.0 (5) Chest pain ICD Code: R07.9 (6) Hypothyroidism (acquired) ICD Code: E03.9 (7) Postoperative ileus ICD Code: K91.3 Precaution/Isolation: Standard Precautions Resuscitation Status: Full Code Fall Level: Low Risk 25-50 Subjective Pt reports sleeping well last night and has been enjoying the increased activity throughout the day. Pt ambulating without FWW and agrees to ambulating with SPC. Pt is feeling confident in independence in room as well as colostomy cares. Pain Location/Comment Pt reports no pain at this date. Oxygen Delivery: Room air O2 liters/minute: 0 Treatments Comment Pt completed the following exercises for balance and endurance: tandem stance on foam with RUE for support 2 x 1' bilaterally, WBOS EO/EC on foam x 1' each, NBOS EO/EC on foam x 1' each, SLS on ground with RUE support as needed x 1' bilaterally. Seated rest break taken after completing the exercises. Pt completed 2x15 4" step-ups bilaterally for strengthening and endurance. Pt tolerates well. Gait Pt ambulated with SPC and CGA approximately 650' to PT gym with no seated rest breaks. Pt continuing to ambulate with upright posture, min VC for technique, reciprocal pattern, decreased arm swing, and decreased yon. After exercise, PT ambulated 650' back to room with a decreased yon due to fatigue. Education/Plan Education Discussed patient meeting her therapy goals and recommendation for her to transition back to home soon when she is medically ready and OT agrees. Plan Patient will be seen: Daily Friday-Friday Discharge Recommendations: Caregiver support Coding Time In: 1127 Time Out: 1214 Total Minutes: 47 RAUL,GABRIELA N PT November 13, 2016 13:03
--- NOTE | 2016-11-13 13:44 | Progress Note (E) ---
Progress Note S: Awake and alert, ate well for breakfast, no new issues, stools have slowed down , Receiving IV magnesium for level of 1.4, creat up to 1.23- likely dehydration will give IV NS bolus and follow labs. O: I & O Past 24 hrs 11/13/16 07:00 Intake Total 1248 ml Output Total 1300 ml Balance -52 ml Intake Oral 1248 ml Output Urine Total 750 ml Stool Total 550 ml Vitals: Vital Signs Date Time Temp Pulse Resp B/P Pulse Ox O2 Delivery O2 Flow Rate FiO2 11/13/16 08:18 97.2 86 20 141/60 100 Room air GEN: Awake, interactive, oriented. NAD at present. up to the chair HEENT: EOMI, clear sclerae, moist oral mucosa. CV: Regular with prominent III/ systolic murmur, early, crescendo, loudest at left upper sternal border. PULM: CTA B with no R/R/W. ABD: Soft, NT/ND with active bowel sounds. Ileostomy intact. Dressing to abdominal wound intact. stoma pink EXTR: Trace ankle edema. INTEG: Age related changes. Mild pallor. NEURO: No focal motor neuro deficit. IMAGING 11/08/16 CYSTOGRAPHY INDICATION: Vesicointestinal fistula. FINDINGS: The patient registration clerk film of the pelvis shows a ureteral stent to be present with the pigtail projected over the urinary bladder region. An ostomy is seen in the right lower quadrant. A Quiñones balloon catheter is in place. Omnipaque 240 was sterilely instilled into the urinary bladder and filling was observed with fluoroscopy. Multiple spot films were done with overhead radiographs. Early filling showed no significant abnormality. At approximately 150 cc, there was left vesicoureteral reflux into the left pelvicalyceal system. At about 200 cc, irregularity of the left lateral wall of the urinary bladder was noted with an abnormal contrast collection at the left aspect of the urinary bladder. There is a thin communication between the urinary bladder and the extraluminal contrast collection. The contrast collection occupies an area of about 2.6 cm. At 250 cc, no more contrast was drip into the urinary bladder. The post drainage radiograph demonstrated persistent localized extraluminal contrast accumulation. IMPRESSION: 1. Extravasated urinary bladder contrast through a thin tract to the left para-vesicle region. This may be a localized accumulation within the bowel wall that did not progress intraluminally in the bowel or represent a localized extraluminal peritoneal collection. 2. The left ureteral stent is in good position. Laboratory Results Past 24 Hrs 11/11/16 14:05: Urine Bacteria 1+, Urine Bilirubin Negative, Urine Blood 2+, Urine Clarity Slightly cloudy, Urine Collection Type Catheter, Urine Color Yellow, Urine Glucose (UA) Negative, Urine Hyaline Casts 2+, Urine Ketones Negative, Urine Leukocyte Esterase 2+, Urine Microscopic RBC 10-20, Urine Nitrite Negative, Urine Protein Negative, Urine Specific [place] <=1.005, Urine Squamous Epithelial Cells 0-2, Urine Urobilinogen 0.2, Urine WBC 20-50, Urine pH 5.5, Volume Urine Centrifuged 12 ml 11/12/16 05:40: Magnesium Level 1.1 11/12/16 08:50: Alanine Aminotransferase (ALT/SGPT) 22, Albumin 3.1, Albumin/Globulin Ratio 0.939, Alkaline Phosphatase 88, Anion Gap 16.1, Aspartate Amino Transf (AST/SGOT ) 17, BUN/Creatinine Ratio 21, Basophils # (Auto) 0.1, Basophils (%) (Auto) 1, Blood Urea Nitrogen 23, Calcium Level 9.5, Calcium/Ionized Calcium Ratio 4.4, Calculated Osmolality 277, Carbon Dioxide Level 21, Chloride Level 109, Creatinine 1.08, Eosinophils # (Auto) 0.6, Eosinophils (%) (Auto) 7, Estimat Glomerular Filtration Rate 61.0, Estimated GFR (Non- 50.5, Free Thyroxine (T4) Calculated 1.37, Glucose Level 104, Hematocrit 29.20, Hemoglobin 9.1, Lymphocytes # (Auto) 2.2, Lymphocytes (%) (Auto) 24, Mean Corpuscular Hemoglobin 28.4, Mean Corpuscular Hemoglobin Concent 31.2, Mean Corpuscular Volume 91, Mean Platelet Volume 10.5, Monocytes # (Auto) 0.5, Monocytes (%) ( Auto) 6, Neutrophils # (Auto) 5.6, Neutrophils (%) (Auto) 63, Platelet Count 153 , Potassium Level 4.9, Red Blood Count 3.20, Red Cell Distribution Width 15.9, Sodium Level 141, Thyroid Stimulating Hormone (TSH) 6.95, Total Bilirubin 0.5, Total Protein 6.4, White Blood Count 8.93 ASSESSMENT Karol Valladares is a 66 year old female admitted as a transfer from [facility] 11/01 for retirement care after surgery 10/10 for colovesicular fistula repair and left ureteral stenting, NSTEMI, wound dehiscence, temporarily with wound vac, now in retirement for close medical supervision of her resolving acute medical problems as well as PT/OT for deconditioning. PLAN * Deconditioning: PT/OT eval and treat. * Surgical Wound Dehiscence: Wound vac for a short time but now wound closing with dressing changes, managed per surgery. Amoxicillin/clavulanate, levofloxacin courses completed for concern of wound infection in [place] with Pseudomonas and other organisms. * Hypomagnesemia- replacing IV Mag yesterday and today- she is tolerating it well * Colovesicular Fistula Repair, Diverticulitis, Recurrent UTI: S/P left ureteral stenting and ileostomy. Stoma cares per protocol. Surgery following. Urology (Dr. Hankins) remains involved in her care. Amoxicillin/clavulanate, levofloxacin courses completed. Cystogram results as noted. * Abdominal Pain: Improving. [place]. * Heart Murmur: Request echo from [facility]. Is supposed to follow-up with senior fund accountant there in 6 months. * F/E/N: Regular * Prophylaxis: SCD * Code Status: Full * Dispo: Skilled care for above issues. Continue present management- changed pantaprazole to pepcid, replacing magnesium IV, Requested daughter to not bring protein shakes in due to diarrhea increased. No Naked juice. Follow magnesium levels. Creat up a bit- giving IV NS bolus x 1. RESOLVING ISSUES * NSTEMI: Attributed to demand ischemia. Request echo from [facility]. Is supposed to follow-up with senior fund accountant there in 6 weeks (Dr. Duarte, [facility]). Has not been taking any anti-platelet agent. Also not noted to be on any anti-lipid therapy after discharge from [place]. Added aspirin 11/09. Check lipid profile and start statin therapy if warranted. CHRONIC ISSUES * GERD: Pantoprazole * Hypothyroidism: Levothyroxine * COPD: Fluticasone/salmeterol * Gout: Allopurinol * Pain: Hydrocodone/acetaminophen * Constipation: Bowel regimen * HTN: Losartan, metoprolol * Insomnia: Zolpidem * CKD Stage III: Reportedly stable. Avoid nephrotoxic agents. Pt seen and examined, agree with above. Mag up to 1.8 after 2gm IV last night. The hope is doing Mg by IV will cause less loose stools which will minimize GI losses and she will need less supplementation. Malabsorption could also be a problem. Will check lab in morning. If Mg goes back down, will consider consulting with Dr. Cornell to see if he has other options. Fatimah Whitley APRN November 13, 2016 13:44 Jimmy Reyna MD November 13, 2016 21:13
--- NOTE | 2016-11-13 13:45 | NUR ---
Pt sitting up in chair in room. Denies pain at present.
--- NOTE | 2016-11-13 15:10 | NUR ---
Dr Cornell present to examine incision and check on stoma. Drg reapplied and Dr. Cornell applied the new appliance to the stoma. in the room at the time. Dr. Cornell instructed staff to not make the opening to big and to use the adapt on the appliance to make it stick better.
--- NOTE | 2016-11-13 18:37 | OT Daily Note Inpatient (E) ---
OT Daily Treatment Service Date/Time 11/13/16, 18:32 Primary Diagnosis: (1) Esophagogastroduodenoscopy (2) Ileostomy in place ICD Code: Z93.2 (3) Hypothyroidism (acquired) ICD Code: E03.9 (4) Postoperative ileus ICD Code: K91.3 (5) Hypertensive urgency ICD Code: I16.0 (6) Diverticulitis (7) Status post colectomy ICD Code: Z90.49 Treatment Diagnosis: (1) Weakness ICD Code: R53.1 Onset Date: 10/28/16 Start of Care Date: Nov 04, 2016 Precaution/Isolation: Standard Precautions Fall Level: Low Risk 25-50 Resuscitation Status: Full Code Feel like I am ready to go home, but do no want to leave too soon. Had a little pain in back following physical therapy today. Changed osotomy bag by self today and feel pretty good about it. Pain Level: 0 Oxygen Needed: Room air O2 liters/minute: 0 Current Function Assessment Cognition Attention: Intact Memory: Intact Safety/Judgement: Intact Toileting During functional transfer, pt required cueing to get catheter bag. Pt hung it along waistband of pants. Education to keep below bladder. Educated and discussed use of leg catheter to limit need to carry. Provided pt with one and education on how to use. Pt appeared interested and would like to try before leaving the hospital. When getting up to participate in therapeutic activity in [facility], pt noted ostomy bag leaking. Pt able to complete functional mobility to bathroom and clean up following set up. Able to doff pants and socks and remove ostomy bag. Pt left with nurse following session to allow physician to see incision and ostomy. Education/Assessment Education Provided: Assistive equipment, Energy conservation (Educated pt on energy conservation techniques at home to improve safety and conserve energy during IADL tasks at home. Pt verbalized understanding. ), Home management/ safety (Provided education to pt with handouts on placement of grab bars in the shower to improve safety with transfers and during showering task. Additionally provided pt with education on a transfer style tub bench to reduce risk of falls. Provided information on wear to obtain equipment. ), Other (Pt educated in measuring stoma, how to take ostomy bag on/off. Video ,verbal and demo used for ed. Plan to do herself at next visit) Education Evalution: Demonstrate understanding, Peforms return demo (Pt only had a little trouble clipping the bag ) Teaching Method: Demonstration, Practice/repetition, Verbal Readiness to Learn: Excellent Barriers to Learning: Other Treatment Tolerance: Thiago trmnt w/o complaints Problems Impacting Treatment: Dizziness Rehabilitation Potential: Good Pt able to clean up ostomy bag and assist with changing. Pt demonstrates good safety awareness and modified independence during self care tasks. Education for catheter bag. POC Plan of Care Problems Identified: Activity Tolerance Short Term Goals Will Dress Upper Extremity: Independently (min a for bra ) Will Dress Lower Extremity: Independently (SBA with v/c) Pulp Drier Firer Goals Will do Tub/Shower Transfer: Independently (SBA for entering and exiting independent) Will Bathe Self: Independently (GOAL MET.) LTG # 1 Pt will tolerate 45 minutes of therapy with 1-2 rest breaks and demonstration of good safety. (tolerated 41 min of therapy with frequent rest breaks) CPT/G Codes Time In: 14:12 Time Out: 14:47 Total Minutes: 35 ( ADL) CPT Codes: 70243 ADL EA () JUAN PATTERSON OT November 13, 2016 18:37
--- NOTE | 2016-11-13 19:43 | NUR ---
Pt found sitting in her chair, SPO2 100% on RA, HR 77, RR 16 and non labored with clear BS before and after 2p Advair 230/21 via Spacer. Mouth rinsed post Tx.
--- NOTE | 2016-11-13 21:00 | NUR ---
Resting in bed. Ready for sleep. Emptied Ileostomy bag. Doing well and getting stronger daily. Ileostomy bag has small amount of brown soft stool. Midline abdominal dressings dry and intact.
[2016-11-13] MEDS: ATORVASTATIN 40 MG (LIPITOR) TABLET PO SCH (21:42)
[2016-11-13] MEDS: ZOLPIDEM 5 MG (AMBIEN) TAB PO PRN (21:49)
--- NOTE | 2016-11-13 21:50 | NUR ---
[place] 5mg and Ambien 5mg administered per patient request. Ready for sleep. XCall light within reach.
[2016-11-14] MEDS: LEVOTHYROXINE 50 MCG (LEVOTHROID) TABLET PO SCH (06:10)
[2016-11-14 06:16] LABS: BASOPHILS % (AUTO) 1 % (0-2); EOSINOPHILS # (AUTO) 0.5 10^3uL; EOSINOPHILS % (AUTO) 6 % (0-4); LYMPHOCYTES # (AUTO) 2.1 X10^3; MEAN CORPUSCULAR HEMOGLOBIN 28.5 PG (26.0-34.0); MEAN CORPUSCULAR VOLUME 92 FL (80-100); MEAN PLATELET VOLUME 10.5 FL (6.0-9.5); MONOCYTES # (AUTO) 0.7 X10^3; MONOCYTES % (AUTO) 8 % (3-11); NEUTROPHILS # (AUTO) 5.2 X10^3; NEUTROPHILS % (AUTO) 61 % (51-67); PLATELET COUNT 168 10^3uL (150-450); WHITE BLOOD COUNT 8.54 10^3uL (4.0-11.0)
--- NOTE | 2016-11-14 06:29 | NUR ---
Rested well tonight. No discomforts voiced. Brown stool in Ileostomy bag. Color sl pale. Patient does get relief from [place] that was administered at HS. Pleasant and cooperative with cares. Quiñones drains yellow urine. No discomforts voiced this morning.
[2016-11-14 06:35] LABS: MEAN CORPUSCULAR HGB CONC 31.1 g/dL (31.0-37.0)
[2016-11-14 06:49] LABS: ANION GAP 13.3 MEQ/L (3-15); MAGNESIUM* 1.5 mg/dL (1.6-2.3)
[2016-11-14 07:54] VITALS: BP 142/56
[2016-11-14] MEDS: MULTIVITAMIN W/MINERALS (THERAGRAN M) TABLET PO SCH (08:01)
[2016-11-14] MEDS: FERROUS SULFATE 325 MG (IRON) TABLET PO SCH ×2 (08:02→18:35)
[2016-11-14] MEDS: meTOprolol TARTRATE 25 MG (LOPRESSOR) TABLET PO SCH ×2 (08:02→18:35)
[2016-11-14] MEDS: FLUTICASONE/SALMETEROL HFA 230/21 MCG (ADVAIR) COMMON CANNISTER INH SCH ×2 (08:21→20:03)
--- NOTE | 2016-11-14 08:47 | NUR ---
SpO2 98-99% sitting in chair.
[2016-11-14] MEDS: OMEGA-3 ACID ETHYL ESTERS 1 GM (LOVAZA) CAPSULE PO SCH (09:59)
[2016-11-14] MEDS: ALLOPURINOL 300 MG (ZYLOPRIM) TAB PO SCH (09:59)
[2016-11-14] MEDS: FAMOTIDINE 20 MG (PEPCID) TABLET PO SCH ×2 (09:59→21:51)
[2016-11-14] MEDS: CALCIUM CITRATE/VITAMIN D3 315MG/250IU (CALCITRATE +D) TABLET PO SCH (09:59)
[2016-11-14] MEDS: CHOLECALCIFEROL 1000 INT UNITS (VITAMIN D3) TABLET PO SCH (10:00)
[2016-11-14] MEDS: ASPIRIN 81 MG CHEW (LOW-DOSE) PO SCH (10:00)
[2016-11-14] MEDS: ACIDOPHILUS/LACTOBACILLUS SPOROGENES 1 TABLET PO SCH ×2 (10:00→21:51)
[2016-11-14] MEDS: LOSARTAN 100 MG (COZAAR) TABLET PO SCH (10:04)
[2016-11-14] MEDS: GLUCOSAMINE/CHONDROITIN 500MG-400MG CAPSULE PO SCH ×2 (10:04→21:51)
--- NOTE | 2016-11-14 11:30 | NUR ---
burt bag changed to leg bag in prep for amb with PT as per patient/PT request.
[2016-11-14] MEDS ORDERED: MAGNESIUM OXIDE 400 MG (MAG-OX) TAB PO SCH (12:00)
--- NOTE | 2016-11-14 12:08 | PT Daily Note Inpatient (E) ---
PT Daily Treatment Service Date/Time 11/14/16, 12:03 Medical Diagnosis: (1) Esophagogastroduodenoscopy (2) Ileostomy in place ICD Code: Z93.2 (3) Hypothyroidism (acquired) ICD Code: E03.9 (4) Postoperative ileus ICD Code: K91.3 (5) Hypertensive urgency ICD Code: I16.0 (6) Diverticulitis (7) Status post colectomy ICD Code: Z90.49 Physical Therapy: (1) Leukocytosis ICD Code: D72.829 (2) Anemia ICD Code: D64.9 (3) Ileostomy in place ICD Code: Z93.2 (4) Hypertensive urgency ICD Code: I16.0 (5) Chest pain ICD Code: R07.9 (6) Hypothyroidism (acquired) ICD Code: E03.9 (7) Postoperative ileus ICD Code: K91.3 Precaution/Isolation: Standard Precautions Resuscitation Status: Full Code Fall Level: Low Risk 25-50 Subjective Pt is feeling great, feels comfortable with her stoma care and walking more independently around the floor, ready to go home Pain Level: 0 Oxygen Delivery: Room air O2 liters/minute: 0 Treatments Sit, Stand, Supine: Standing Extremity: Both Lower Extremity Assistance: AROM Repetition: 1 x 10 Exercise: Hip Abduction, Hip Extension Static Balance: NBOS (dynamic with foam eyes open - eyes closed), WBOS ( dynamic bal on foam with eyes open - eyes closed) Duration: 1x 45 seconds Transfers Supine-Sit: Complete Meno Sit-Stand from bed: Complete Meno Stand-Sit: Complete Meno Pivot Transfers: Complete Meno Gait Ambulation: Modified Meno Distance Walked: 650' x 2 Weight Bearing Status: Full Assistive Device: Single Point Cane Gait Assist: Modified Meno Gait Description: Normal:No Sig. Deviation, Safe w/ Assistive Device, Decreased Zoey, Slow Education/Plan Education Assessment Pt has met goals and is safe to return home with home health for stoma care and dressing changes Safety Awareness: Intact Response to Treatment: Improving Plan Cont POC Patient will be seen: Daily Friday-Friday Discharge Recommendations: Caregiver support Coding Time In: 1113 Time Out: 1155 Total Minutes: 42 Charges: 99587 Exercise Therp MARNI Aguilar PTA November 14, 2016 12:08
--- NOTE | 2016-11-14 13:47 | NUR ---
LEG BAG CHANGED BACK TO PARADA BAG PER PATIENT'S REQUEST. DEMO GIVEN. PATIENT STATES SHE UNDERSTANDS.
--- NOTE | 2016-11-14 17:50 | NUR ---
REPORTS OSTOMY LEAKED . PATIENT REMOVED FLANGE AND BAG DUE TO LEAKAGE. STATES NO STOOL GOT INTO INCISION BUT REMOVED WOUND DRSG TO WORK ON PLACEMENT OF NEW FLANGE. PATIENT DID ALL OF OSTOMY CARE OF NEW FLANGE/BAG SATISFACTORILY. WOUND REDRESSED PER THIS NURSE.
--- NOTE | 2016-11-14 18:03 | OT Daily Note Inpatient (E) ---
OT Daily Treatment Service Date/Time 11/14/16, 17:52 Primary Diagnosis: (1) Esophagogastroduodenoscopy (2) Ileostomy in place ICD Code: Z93.2 (3) Hypothyroidism (acquired) ICD Code: E03.9 (4) Postoperative ileus ICD Code: K91.3 (5) Hypertensive urgency ICD Code: I16.0 (6) Diverticulitis (7) Status post colectomy ICD Code: Z90.49 Treatment Diagnosis: (1) Weakness ICD Code: R53.1 Onset Date: 10/28/16 Start of Care Date: Nov 04, 2016 Precaution/Isolation: Standard Precautions Fall Level: Low Risk 25-50 Resuscitation Status: Full Code Pt feels like she is ready to go home. Feel good about changing the ostomy bag. Just worried about the incision. Pain Level: 0 Oxygen Needed: Room air O2 liters/minute: 0 Current Function Assessment Mental Status Patient Orientation: Person Mental Status: Alert Cognition Attention: Intact Memory: Intact Safety/Judgement: Intact Endurance Activity Endurance: Good Additional Assessment/Comments Pt in toilet upon therapist arrival. Was checking osotomy bag. Therapist educated in use of energy conservation techniques upon return home. Pt verbalized understanding. Provided education to pt and ideas of ways to carry catheter bag around the home. Additionally provided education on management of catheter bag and keeping below bladder. Instructed in use of catheter bag around leg. Pt completed functional mobility to kitchen room with independence. Pt able to climb step stool and reach in cabinets with modified independence. Able to reach in lower cabinets with no noted LOB and carry items with BUE's. Answered patient's questions regarding shower chair with high school social studies teacher. Education/Assessment Education Provided: Assistive equipment, Energy conservation (Educated pt on energy conservation techniques at home to improve safety and conserve energy during IADL tasks at home. Pt verbalized understanding. ), Home management/ safety (Provided education to pt with handouts on placement of grab bars in the shower to improve safety with transfers and during showering task. Additionally provided pt with education on a transfer style tub bench to reduce risk of falls. Provided information on wear to obtain equipment. ), Other (Pt educated in measuring stoma, how to take ostomy bag on/off. Video ,verbal and demo used for ed. Plan to do herself at next visit) Education Evalution: Demonstrate understanding, Peforms return demo (Pt only had a little trouble clipping the bag ) Teaching Method: Demonstration, Practice/repetition, Verbal Readiness to Learn: Excellent Barriers to Learning: Other Treatment Tolerance: Thiago trmnt w/o complaints Problems Impacting Treatment: Dizziness Rehabilitation Potential: Good Pt able to complete all self care tasks and simple IADL tasks with modified independence. POC Plan of Care Problems Identified: Activity Tolerance Short Term Goals Will Dress Upper Extremity: Independently (min a for bra ) Will Dress Lower Extremity: Independently (SBA with v/c) Multiple Drum Sander Goals Will do Tub/Shower Transfer: Independently (SBA for entering and exiting independent) Will Bathe Self: Independently (GOAL MET.) LTG # 1 Pt will tolerate 45 minutes of therapy with 1-2 rest breaks and demonstration of good safety. (tolerated 41 min of therapy with frequent rest breaks) CPT/G Codes Time In: 13:23 Time Out: 14:00 Total Minutes: 37 ( ADL) CPT Codes: 05878 ADL EA () JUAN PATTERSON OT November 14, 2016 18:03
--- NOTE | 2016-11-14 19:09 | NUR ---
Pt sitting on side of bed, visiting with family. Denies needs at this time.
[2016-11-14] MEDS: ATORVASTATIN 40 MG (LIPITOR) TABLET PO SCH (21:51)
[2016-11-14] MEDS: ZOLPIDEM 5 MG (AMBIEN) TAB PO PRN (21:51)
[2016-11-14] MEDS: HYDROcodone/APAP 5 MG/325 MG (NORCO) TAB PO PRN (21:51)
[2016-11-15] MEDS: LEVOTHYROXINE 50 MCG (LEVOTHROID) TABLET PO SCH (06:13)
--- NOTE | 2016-11-15 06:17 | NUR ---
Uneventful shift. Pt has no needs at this time. good output from stoma and catheter. Denies pain this morning.
[2016-11-15 07:42] VITALS: BP 102/40
[2016-11-15] MEDS: meTOprolol TARTRATE 25 MG (LOPRESSOR) TABLET PO SCH ×2 (08:00→17:52)
[2016-11-15] MEDS: FLUTICASONE/SALMETEROL HFA 230/21 MCG (ADVAIR) COMMON CANNISTER INH SCH ×2 (08:34→19:30)
[2016-11-15] MEDS: ALLOPURINOL 300 MG (ZYLOPRIM) TAB PO SCH (08:38)
[2016-11-15] MEDS: FERROUS SULFATE 325 MG (IRON) TABLET PO SCH ×2 (08:38→17:52)
[2016-11-15] MEDS: OMEGA-3 ACID ETHYL ESTERS 1 GM (LOVAZA) CAPSULE PO SCH (08:38)
[2016-11-15] MEDS: MULTIVITAMIN W/MINERALS (THERAGRAN M) TABLET PO SCH (08:38)
[2016-11-15] MEDS: ASPIRIN 81 MG CHEW (LOW-DOSE) PO SCH (08:38)
[2016-11-15] MEDS: CALCIUM CITRATE/VITAMIN D3 315MG/250IU (CALCITRATE +D) TABLET PO SCH (08:38)
[2016-11-15] MEDS: ACIDOPHILUS/LACTOBACILLUS SPOROGENES 1 TABLET PO SCH ×2 (08:38→20:36)
[2016-11-15] MEDS: CHOLECALCIFEROL 1000 INT UNITS (VITAMIN D3) TABLET PO SCH (08:38)
[2016-11-15] MEDS: LOSARTAN 100 MG (COZAAR) TABLET PO SCH (08:38)
[2016-11-15] MEDS: GLUCOSAMINE/CHONDROITIN 500MG-400MG CAPSULE PO SCH ×2 (08:38→20:36)
[2016-11-15] MEDS: FAMOTIDINE 20 MG (PEPCID) TABLET PO SCH ×2 (08:38→20:36)
--- NOTE | 2016-11-15 11:34 | Progress Note (E) ---
Progress Note Pts magnesium is 1.2 despite IV doses, oral doses gives her diarrhea. Let Dr Cornell aware for any suggestions to that. Per Alfreda AVERY in Surgery Fatimah Ray AUDIO NARRATOR November 15, 2016 11:34
[2016-11-15] MEDS ORDERED: MAGNESIUM 2 GM/50 ML IVPB 50 ML IV ONE (11:45)
[2016-11-15] MEDS: MAGNESIUM 1 GM/100 ML IVPB 100 ML IV SCH ×2 (12:02→13:27)
--- NOTE | 2016-11-15 12:29 | NUR ---
24g IV in left hand leaking. Discontinued with catheter intact. Mild redness at insertion site. 24g IV initiated into left forearm. Magnesium infusing without difficulty.
--- NOTE | 2016-11-15 16:58 | OT Daily Note Inpatient (E) ---
OT Daily Treatment Service Date/Time 11/15/16, 16:58 Primary Diagnosis: (1) Esophagogastroduodenoscopy (2) Ileostomy in place ICD Code: Z93.2 (3) Hypothyroidism (acquired) ICD Code: E03.9 (4) Postoperative ileus ICD Code: K91.3 (5) Hypertensive urgency ICD Code: I16.0 (6) Diverticulitis (7) Status post colectomy ICD Code: Z90.49 Treatment Diagnosis: (1) Weakness ICD Code: R53.1 Onset Date: 10/28/16 Start of Care Date: Nov 04, 2016 Precaution/Isolation: Standard Precautions Fall Level: Low Risk 25-50 Resuscitation Status: Full Code Pt reports she is ready to go home. Feels good about everything. Pain Level: 0 Oxygen Needed: Room air O2 liters/minute: 0 Current Function Assessment Cognition Attention: Intact Memory: Intact Safety/Judgement: Intact Additional Assessment/Comments Co treatment with physical therapy this date to discuss home recommendations with pt. Educated and discussed use of energy conservation techniques upon return home. Additionally discussed with pt catheter wear and cleaning schedule. Educated and discussed use of shower chair and grab bars during transfer and showering tasks. Discussed concerns for return home. All patient's questions were answered. Reassess pt's strength: R shoulder 4-/5 secondary to increase in pain along middle deltoid, LUE 4/5, R elbow and wrist planes 4/5. Education/Assessment Education Provided: Assistive equipment, Energy conservation (Educated pt on energy conservation techniques at home to improve safety and conserve energy during IADL tasks at home. Pt verbalized understanding. ), Home management/ safety (Provided education to pt with handouts on placement of grab bars in the shower to improve safety with transfers and during showering task. Additionally provided pt with education on a transfer style tub bench to reduce risk of falls. Provided information on wear to obtain equipment. ), Other (Pt educated in measuring stoma, how to take ostomy bag on/off. Video ,verbal and demo used for ed. Plan to do herself at next visit) Education Evalution: Demonstrate understanding, Peforms return demo (Pt only had a little trouble clipping the bag ) Teaching Method: Demonstration, Practice/repetition, Verbal Readiness to Learn: Excellent Barriers to Learning: Other Treatment Tolerance: Thiago trmnt w/o complaints Problems Impacting Treatment: Dizziness Rehabilitation Potential: Good Pt able to meet all goals in therapy. Demonstrates independence and good safety awareness during self care tasks and simple IADL tasks. Discharge from occupational therapy services at this time. POC Plan of Care Problems Identified: Activity Tolerance Short Term Goals Will Dress Upper Extremity: Independently (min a for bra ) Will Dress Lower Extremity: Independently (SBA with v/c) Skilled Nursing Goals Will do Tub/Shower Transfer: Independently (SBA for entering and exiting independent) Will Bathe Self: Independently (GOAL MET.) LTG # 1 Pt will tolerate 45 minutes of therapy with 1-2 rest breaks and demonstration of good safety. GOAL MET. CPT/G Codes Time In: 17:28 Time Out: 17:44 Total Minutes: 16 (07/29 ADL) CPT Codes: 19195 ADL EA (07/29) JUAN PATTERSON OT November 15, 2016 16:58
--- NOTE | 2016-11-15 17:03 | Physical Therapy Evaluation(E) ---
Discharge Summary Service Date/Time 11/15/16, 17:02 Primary Diagnosis: (1) Esophagogastroduodenoscopy (2) Ileostomy in place ICD Code: Z93.2 (3) Hypothyroidism (acquired) ICD Code: E03.9 (4) Postoperative ileus ICD Code: K91.3 (5) Hypertensive urgency ICD Code: I16.0 (6) Diverticulitis (7) Status post colectomy ICD Code: Z90.49 Treatment Diagnosis: (1) Leukocytosis ICD Code: D72.829 (2) Anemia ICD Code: D64.9 (3) Ileostomy in place ICD Code: Z93.2 (4) Hypertensive urgency ICD Code: I16.0 (5) Chest pain ICD Code: R07.9 (6) Hypothyroidism (acquired) ICD Code: E03.9 (7) Postoperative ileus ICD Code: K91.3 Onset Date: 10/19/2016 Start of Service Date: Nov 01, 2016 Summary of Progress Summary Comment Patient has met all of her physical therapy goals and from a PT standpoint ready to transition to home. She has a walker she can use at home if needed, but has been able to ambulate community distance. Distance Walked in Feet 400 feet with FWW Assistive Device: Single Point Cane Assist: Modified [place] Gait Description: Normal:No Sig. Deviation, Safe w/ Assistive Device, Decreased Zoey, Slow Gait Limitations: Fatigue Transfer STG and Status Rolling: Complete [place] Sit-Supine: Complete [place] Supine-Sit: Complete [place] Sit-Stand from bed: Modified [place] Stand-Sit: Modified [place] Ambulation: Modified [place] Comment Additional short term goals: 1) Patient will improve standing tolerance to a minimum of 10 minutes prior to needing a seated rest break. 2) Patient will scores a minimum of 21/28 on the Tinetti balance assessment. Transfer LTG and Status Sit-Stand from bed: Complete [place] Stand-Sit: Complete [place] Ambulation: Complete [place] Comment 1) Patient will traverse 4 steps with use of bilateral hand rails to safely enter/exit her home. 2) Patient will complete 20 minutes of therapeutic activities without a rest break to demonstrate improved activity tolerance. Plan of Care Goals and Status STG: Plan-Treatment Functional: Amb Safe w/ AD on level Discharge Recommendations: Caregiver support Coding Time In: 1629 Time Out: 1645 Total Minutes: 16 GABRIELA CARTER PT November 15, 2016 17:03
[2016-11-15 17:16] VITALS: BP 149/75
--- NOTE | 2016-11-15 18:16 | NUR ---
Patient independent in room and halls throughout day shift. Requires no pain medication. Tolerates two dressing changes well. Ileostomy draining watery green stool. 250ml drained from [id number]. Quiñones catheter draining clear yellow urine. Independent with draining bags. Call light in reach.
--- NOTE | 2016-11-15 19:10 | NUR ---
Pt up in chair, eating supper. Denies needs at this time.
[2016-11-15] MEDS: MAGNESIUM OXIDE 400 MG (MAG-OX) TAB PO SCH (20:36)
[2016-11-15] MEDS: ATORVASTATIN 40 MG (LIPITOR) TABLET PO SCH (20:36)
[2016-11-15] MEDS: ZOLPIDEM 5 MG (AMBIEN) TAB PO PRN (22:40)
[2016-11-15] MEDS: HYDROcodone/APAP 5 MG/325 MG (NORCO) TAB PO PRN (22:40)
--- NOTE | 2016-11-16 06:23 | NUR ---
Pt rests well. Has leakage of appliance during the night. Pt does all changing phalange and bag by herself. Minimal c/o pain. SL intact. No needs at this time.
[2016-11-16] MEDS: LEVOTHYROXINE 50 MCG (LEVOTHROID) TABLET PO SCH (06:58)
[2016-11-16 07:45] VITALS: BP 101/45
[2016-11-16] MEDS: FLUTICASONE/SALMETEROL HFA 230/21 MCG (ADVAIR) COMMON CANNISTER INH SCH ×2 (08:29→19:56)
[2016-11-16] MEDS: meTOprolol TARTRATE 25 MG (LOPRESSOR) TABLET PO SCH ×2 (08:35→17:35)
[2016-11-16] MEDS: ACIDOPHILUS/LACTOBACILLUS SPOROGENES 1 TABLET PO SCH ×2 (08:35→22:51)
[2016-11-16] MEDS: OMEGA-3 ACID ETHYL ESTERS 1 GM (LOVAZA) CAPSULE PO SCH (08:35)
[2016-11-16] MEDS: HYDROcodone/APAP 5 MG/325 MG (NORCO) TAB PO PRN ×2 (08:35→22:51)
[2016-11-16] MEDS: CHOLECALCIFEROL 1000 INT UNITS (VITAMIN D3) TABLET PO SCH (08:36)
[2016-11-16] MEDS: MAGNESIUM OXIDE 400 MG (MAG-OX) TAB PO SCH ×2 (08:36→22:50)
[2016-11-16] MEDS: GLUCOSAMINE/CHONDROITIN 500MG-400MG CAPSULE PO SCH ×2 (08:36→22:50)
[2016-11-16] MEDS: MULTIVITAMIN W/MINERALS (THERAGRAN M) TABLET PO SCH (08:36)
[2016-11-16] MEDS: CALCIUM CITRATE/VITAMIN D3 315MG/250IU (CALCITRATE +D) TABLET PO SCH (08:36)
[2016-11-16] MEDS: FAMOTIDINE 20 MG (PEPCID) TABLET PO SCH ×2 (08:36→22:51)
[2016-11-16] MEDS: FERROUS SULFATE 325 MG (IRON) TABLET PO SCH ×2 (08:36→17:35)
[2016-11-16] MEDS: ALLOPURINOL 300 MG (ZYLOPRIM) TAB PO SCH (08:36)
[2016-11-16] MEDS: LOSARTAN 100 MG (COZAAR) TABLET PO SCH (08:37)
[2016-11-16] MEDS: ASPIRIN 81 MG CHEW (LOW-DOSE) PO SCH (08:37)
--- NOTE | 2016-11-16 10:05 | Progress Note (E) ---
Progress Note S: Awake and alert, eating well. She reports an intermittent LLQ abd pain that is only present for a short period of time, seconds. Only comes every few hours. Resolve with pain medicine last night, but has had another very short episode this AM. Not present upon evaluation this AM. Continues to have stools. Denies MOORE, vision change, CP, SOA, N/V, F/C, rash. O: Vital Signs Date Time Temp Pulse Resp B/P Pulse Ox O2 Delivery O2 Flow Rate FiO2 11/16/16 07:45 97.9 80 17 101/45 92 Room air 11/15/16 07:42 0.00 I & O 11/15/16 11/16/16 Cumulative From/Thru 19:00 07:00 11/01/16 11:40 - 11/16/16 06:01 Intake Total 356 ml 600 ml 71176 ml Output Total 450 ml 1600 ml 97091 ml Balance -94 ml -1000 ml -6096 ml Lab-Past 14 Days, 35 Results 11/10/16 05:20: Albumin 2.7L, Anion Gap 14.1, Basophils # (Auto) 0.1, Basophils (%) (Auto) 1, Blood Urea Nitrogen 25#H, Calcium Level 9.5#, Carbon Dioxide Level 21L, Chloride Level 111H, Cholesterol Level 130, Cholesterol/HDL Ratio 5.2H, Creatinine 1.10, Eosinophils # (Auto) 0.4, Eosinophils (%) (Auto) 5H, Estimat Glomerular Filtration Rate 59.8, Estimated GFR (Non- 49.4, Glucose Level 90#, HDL Cholesterol 25L, Hematocrit 26.90L, Hemoglobin 8.5L, LDL Cholesterol, Calculated 66, Lymphocytes # (Auto) 2.5, Lymphocytes (%) (Auto) 30 , Mean Corpuscular Hemoglobin 28.6, Mean Corpuscular Hemoglobin Concent 31.6, Mean Corpuscular Volume 91, Mean Platelet Volume 10.5H, Monocytes # (Auto) 0.7, Monocytes (%) (Auto) 8, Neutrophils # (Auto) 4.7, Neutrophils (%) (Auto) 56, Phosphorus Level 4.9#, Platelet Count 139#L, Potassium Level 5.0#, Red Blood Count 2.97L, Red Cell Distribution Width 15.2, Sodium Level 142#, Triglycerides Level 197H, VLDL Cholesterol, Calculated 39, White Blood Count 8.47 11/11/16 14:05: Urine Bacteria 1+, Urine Bilirubin Negative, Urine Blood 2+H, Urine Clarity Slightly cloudy, Urine Collection Type Catheter, Urine Color Yellow, Urine Glucose (UA) Negative, Urine Hyaline Casts 2+, Urine Ketones Negative, Urine Leukocyte Esterase 2+H, Urine Microscopic RBC 10-20H, Urine Nitrite Negative, Urine Protein Negative, Urine Specific Ennice <=1.005, Urine Squamous Epithelial Cells 0-2, Urine Urobilinogen 0.2, Urine WBC 20-50H, Urine pH 5.5, Volume Urine Centrifuged 12 ml 11/12/16 05:40: Magnesium Level 1.1#*L 11/12/16 08:50: Albumin 3.1L, Anion Gap 16.1H, Basophils # (Auto) 0.1, Basophils (%) (Auto) 1, Blood Urea Nitrogen 23H, Calcium Level 9.5, Carbon Dioxide Level 21L, Chloride Level 109H, Creatinine 1.08, Eosinophils # (Auto) 0.6, Eosinophils (%) (Auto) 7H , Estimat Glomerular Filtration Rate 61.0, Estimated GFR (Non- 50.5, Glucose Level 104, Hematocrit 29.20L, Hemoglobin 9.1L, Lymphocytes # (Auto ) 2.2, Lymphocytes (%) (Auto) 24, Mean Corpuscular Hemoglobin 28.4, Mean Corpuscular Hemoglobin Concent 31.2, Mean Corpuscular Volume 91, Mean Platelet Volume 10.5H, Monocytes # (Auto) 0.5, Monocytes (%) (Auto) 6, Neutrophils # ( Auto) 5.6, Neutrophils (%) (Auto) 63, Platelet Count 153, Potassium Level 4.9, Red Blood Count 3.20L, Red Cell Distribution Width 15.9H, Sodium Level 141, White Blood Count 8.93, Alanine Aminotransferase (ALT/SGPT) 22L, Albumin/ Globulin Ratio 0.939L, Alkaline Phosphatase 88, Aspartate Amino Transf (AST/SGOT ) 17, BUN/Creatinine Ratio 21H, Calcium/Ionized Calcium Ratio 4.4, Calculated Osmolality 277L, Free Thyroxine (T4) Calculated 1.37, Thyroid Stimulating Hormone (TSH) 6.95H, Total Bilirubin 0.5, Total Protein 6.4 11/12/16 18:03: Magnesium Level 1.4#L 5/3/17 05:25: Magnesium Level 1.8#, Alanine Aminotransferase (ALT/SGPT) 28L, Albumin 2.8L, Albumin/Globulin Ratio 0.848L, Alkaline Phosphatase 82, Anion Gap 13.9, Aspartate Amino Transf (AST/SGOT) 17, BUN/Creatinine Ratio 21H, Blood Urea Nitrogen 26H, Calcium Level 8.8, Calcium/Ionized Calcium Ratio 4.2, Calculated Osmolality 274L, Carbon Dioxide Level 20L, Chloride Level 110H, Creatinine 1.23H , Estimat Glomerular Filtration Rate 52.5, Estimated GFR (Non- 43.4, Glucose Level 89, Potassium Level 5.1, Sodium Level 140, Total Bilirubin 0.4, Total Protein 6.1L 11/14/16 05:35: Magnesium Level 1.5L, Anion Gap 13.3, BUN/Creatinine Ratio 21H, Blood Urea Nitrogen 24H, Calcium Level 9.2, Carbon Dioxide Level 21L, Chloride Level 110H, Creatinine 1.12, Estimat Glomerular Filtration Rate 58.5, Estimated GFR (Non- 48.4, Glucose Level 91, Potassium Level 4.9, Sodium Level 140, Basophils # (Auto) 0.1, Basophils (%) (Auto) 1, Eosinophils # (Auto) 0.5, Eosinophils (%) (Auto) 6H, Hematocrit 25.40L, Hemoglobin 7.9L, Lymphocytes # ( Auto) 2.1, Lymphocytes (%) (Auto) 25, Mean Corpuscular Hemoglobin 28.5, Mean Corpuscular Hemoglobin Concent 31.1, Mean Corpuscular Volume 92, Mean Platelet Volume 10.5H, Monocytes # (Auto) 0.7, Monocytes (%) (Auto) 8, Neutrophils # ( Auto) 5.2, Neutrophils (%) (Auto) 61, Platelet Count 168, Red Blood Count 2.77L , Red Cell Distribution Width 15.9H, Smear Scan Yes, White Blood Count 8.54 11/15/16 10:57: Magnesium Level 1.2*L, Phosphorus Level 4.2 11/16/16 07:20: Magnesium Level 1.6# GEN: Awake, interactive, oriented. NAD at present. up to the chair HEENT: EOMI, clear sclerae, moist oral mucosa. CV: Regular with prominent III/ systolic murmur, early, crescendo, loudest at left upper sternal border. PULM: CTA B with no R/R/W. ABD: Soft, NT/ND with active bowel sounds. Ileostomy intact. Dressing to abdominal wound intact. stoma pink EXTR: Trace ankle edema. INTEG: Age related changes. Mild pallor. NEURO: No focal motor neuro deficit. IMAGING 11/08/16 CYSTOGRAPHY INDICATION: Vesicointestinal fistula. FINDINGS: The woodenware assembler film of the pelvis shows a ureteral stent to be present with the pigtail projected over the urinary bladder region. An ostomy is seen in the right lower quadrant. A Quiñones balloon catheter is in place. Omnipaque 240 was sterilely instilled into the urinary bladder and filling was observed with fluoroscopy. Multiple spot films were done with overhead radiographs. Early filling showed no significant abnormality. At approximately 150 cc, there was left vesicoureteral reflux into the left pelvicalyceal system. At about 200 cc, irregularity of the left lateral wall of the urinary bladder was noted with an abnormal contrast collection at the left aspect of the urinary bladder. There is a thin communication between the urinary bladder and the extraluminal contrast collection. The contrast collection occupies an area of about 2.6 cm. At 250 cc, no more contrast was drip into the urinary bladder. The post drainage radiograph demonstrated persistent localized extraluminal contrast accumulation. IMPRESSION: 1. Extravasated urinary bladder contrast through a thin tract to the left para-vesicle region. This may be a localized accumulation within the bowel wall that did not progress intraluminally in the bowel or represent a localized extraluminal peritoneal collection. 2. The left ureteral stent is in good position. Laboratory Results Past 24 Hrs 11/11/16 14:05: Urine Bacteria 1+, Urine Bilirubin Negative, Urine Blood 2+, Urine Clarity Slightly cloudy, Urine Collection Type Catheter, Urine Color Yellow, Urine Glucose (UA) Negative, Urine Hyaline Casts 2+, Urine Ketones Negative, Urine Leukocyte Esterase 2+, Urine Microscopic RBC 10-20, Urine Nitrite Negative, Urine Protein Negative, Urine Specific Ennice <=1.005, Urine Squamous Epithelial Cells 0-2, Urine Urobilinogen 0.2, Urine WBC 20-50, Urine pH 5.5, Volume Urine Centrifuged 12 ml 11/12/16 05:40: Magnesium Level 1.1 11/12/16 08:50: Alanine Aminotransferase (ALT/SGPT) 22, Albumin 3.1, Albumin/Globulin Ratio 0.939, Alkaline Phosphatase 88, Anion Gap 16.1, Aspartate Amino Transf (AST/SGOT ) 17, BUN/Creatinine Ratio 21, Basophils # (Auto) 0.1, Basophils (%) (Auto) 1, Blood Urea Nitrogen 23, Calcium Level 9.5, Calcium/Ionized Calcium Ratio 4.4, Calculated Osmolality 277, Carbon Dioxide Level 21, Chloride Level 109, Creatinine 1.08, Eosinophils # (Auto) 0.6, Eosinophils (%) (Auto) 7, Estimat Glomerular Filtration Rate 61.0, Estimated GFR (Non- 50.5, Free Thyroxine (T4) Calculated 1.37, Glucose Level 104, Hematocrit 29.20, Hemoglobin 9.1, Lymphocytes # (Auto) 2.2, Lymphocytes (%) (Auto) 24, Mean Corpuscular Hemoglobin 28.4, Mean Corpuscular Hemoglobin Concent 31.2, Mean Corpuscular Volume 91, Mean Platelet Volume 10.5, Monocytes # (Auto) 0.5, Monocytes (%) ( Auto) 6, Neutrophils # (Auto) 5.6, Neutrophils (%) (Auto) 63, Platelet Count 153 , Potassium Level 4.9, Red Blood Count 3.20, Red Cell Distribution Width 15.9, Sodium Level 141, Thyroid Stimulating Hormone (TSH) 6.95, Total Bilirubin 0.5, Total Protein 6.4, White Blood Count 8.93 ASSESSMENT Karol Valladares is a 66 year old female admitted as a transfer from [facility] 11/01 for nursing home care after surgery 10/10 for colovesicular fistula repair and left ureteral stenting, NSTEMI, wound dehiscence, temporarily with wound vac, now in nursing home for close medical supervision of her resolving acute medical problems as well as PT/OT for deconditioning. PLAN * Deconditioning: PT/OT eval and treat. * Surgical Wound Dehiscence: Wound vac for a short time but now wound closing with dressing changes, managed per surgery. Amoxicillin/clavulanate, levofloxacin courses completed for concern of wound infection in [place] with Pseudomonas and other organisms. * Hypomagnesemia- s/p IV mg, recheck 11/16 appropriate * Colovesicular Fistula Repair, Diverticulitis, Recurrent UTI: S/P left ureteral stenting and ileostomy. Stoma cares per protocol. Surgery following. Urology (Dr. Hankins) remains involved in her care. Amoxicillin/clavulanate, levofloxacin courses completed. Cystogram results as noted. * Abdominal Pain: Improving with [place], will follow today. RN to discuss with surgery. If concerns arise or worsening symptoms check CT * Heart Murmur: Request echo from [facility]. Is supposed to follow-up with wet machine operator there in 6 months. * F/E/N: Regular * Prophylaxis: SCD * Code Status: Full * Dispo: Skilled care for above issues. Continue present management, follow abdominal pain RESOLVING ISSUES * NSTEMI: Attributed to demand ischemia. Request echo from [facility]. Is supposed to follow-up with wet machine operator there in 6 weeks (Dr. Duarte, [facility]). Has not been taking any anti-platelet agent. Also not noted to be on any anti-lipid therapy after discharge from [place]. Added aspirin 11/09. Check lipid profile and start statin therapy if warranted. CHRONIC ISSUES * GERD: Pepcid * Hypothyroidism: Levothyroxine * COPD: Fluticasone/salmeterol * Gout: Allopurinol * Pain: Hydrocodone/acetaminophen * Constipation: Bowel regimen * HTN: Losartan, metoprolol * Insomnia: Zolpidem * CKD Stage III: Stable. Avoid nephrotoxic agents. AMERICA LEE DO November 16, 2016 10:05 AMERICA LEE DO November 16, 2016 10:05
--- NOTE | 2016-11-16 11:16 | NUR ---
@[id number] Pt c/o LLQ pain described as sharp stabbing pain that comes and goes intermittently. Dr. Leahy and Dr. Cornell both notified- no new orders. WIll cont to monitor- patient educated to let staff know if there is changes to pain. 1100-Dressing to abd changed- she is dressed in own clothes, walking halls.
[2016-11-16] MEDS: ATORVASTATIN 40 MG (LIPITOR) TABLET PO SCH (22:50)
[2016-11-16] MEDS: ZOLPIDEM 5 MG (AMBIEN) TAB PO PRN (22:51)
--- NOTE | 2016-11-17 06:30 | NUR ---
Patient rested well tonight. Does well with Ileostomy and changes it herself, Quiñones cath drains candy urine. Abdominal dressing changed. Open wound healing well. No drainage from area. Wound bed looks good. slowly closing up. dressing changed per Drs orders. Patient tolerated well. [place] and Ambien 5mg administered at 22:51. Patient empties own Ileostomy bag and Quiñones catheter bag. Small amount of barrier creme to rash like areas under ostomy bag and in abdominal folds. Patient is doing well. Very pleasant.
[2016-11-17] MEDS: LEVOTHYROXINE 50 MCG (LEVOTHROID) TABLET PO SCH (06:31)
[2016-11-17 07:22] VITALS: BP 110/47
[2016-11-17] MEDS: FAMOTIDINE 20 MG (PEPCID) TABLET PO SCH ×2 (08:25→20:37)
[2016-11-17] MEDS: CHOLECALCIFEROL 1000 INT UNITS (VITAMIN D3) TABLET PO SCH (08:25)
[2016-11-17] MEDS: ASPIRIN 81 MG CHEW (LOW-DOSE) PO SCH (08:25)
[2016-11-17] MEDS: CALCIUM CITRATE/VITAMIN D3 315MG/250IU (CALCITRATE +D) TABLET PO SCH (08:25)
[2016-11-17] MEDS: ALLOPURINOL 300 MG (ZYLOPRIM) TAB PO SCH (08:25)
[2016-11-17] MEDS: FERROUS SULFATE 325 MG (IRON) TABLET PO SCH ×2 (08:25→17:31)
[2016-11-17] MEDS: GLUCOSAMINE/CHONDROITIN 500MG-400MG CAPSULE PO SCH ×2 (08:25→20:37)
[2016-11-17] MEDS: ACIDOPHILUS/LACTOBACILLUS SPOROGENES 1 TABLET PO SCH ×2 (08:25→20:37)
[2016-11-17] MEDS: MAGNESIUM OXIDE 400 MG (MAG-OX) TAB PO SCH ×2 (08:25→20:37)
[2016-11-17] MEDS: OMEGA-3 ACID ETHYL ESTERS 1 GM (LOVAZA) CAPSULE PO SCH (08:25)
[2016-11-17] MEDS: LOSARTAN 100 MG (COZAAR) TABLET PO SCH (08:26)
[2016-11-17] MEDS: MULTIVITAMIN W/MINERALS (THERAGRAN M) TABLET PO SCH (08:26)
[2016-11-17] MEDS: HYDROcodone/APAP 5 MG/325 MG (NORCO) TAB PO PRN ×2 (08:26→22:28)
[2016-11-17] MEDS: meTOprolol TARTRATE 25 MG (LOPRESSOR) TABLET PO SCH ×2 (08:26→17:31)
[2016-11-17] MEDS: FLUTICASONE/SALMETEROL HFA 230/21 MCG (ADVAIR) COMMON CANNISTER INH SCH ×2 (08:55→19:18)
[2016-11-17] MEDS ORDERED: SODIUM CHLORIDE FLUSH 3 ML SYR ONE (09:32)
[2016-11-17] MEDS: MAGNESIUM 1 GM/100 ML IVPB 100 ML IV SCH ×2 (09:35→11:05)
--- NOTE | 2016-11-17 10:12 | NUR ---
Pt has showered indep this AM. Walked halls indep. She changed her ileostomy appliance and bag indep. She denies having the LLQ sharp/stabbing pain since last evening- feels "good". 20g IV started to [facility] by Qiana Garg RN for Magnesium 2g replacement.
--- NOTE | 2016-11-17 15:44 | Progress Note (E) ---
Progress Note S: Karol is doing well today, but Mg is back down to 1.3. She was put back on po MagOxide 2 days ago - 200mg BID and she hasn't been able to maintain serum levels. She admits today that her stools have been looser yesterday and today, but she has been "burping" her ostomy which prevents her bag from coming off. The couple days she was off the oral meds her stools were less and they were firmer. The LLQ pain she c/o yesterday has resolved. GEN: Awake, interactive, oriented. NAD at present. up on side of bed changing ostomy HEENT: EOMI, clear sclerae, moist oral mucosa. CV: Regular with prominent III/ systolic murmur, early, crescendo, loudest at left upper sternal border. PULM: CTA B with no R/R/W. ABD: Soft, NT/ND with active bowel sounds. stoma pink EXTR: Trace ankle edema. NEURO: No focal motor neuro deficit. LAB: Laboratory Results Past 24 Hrs 11/17/16 08:45: Magnesium Level 1.3 ASSESSMENT Karol Valladares is a 66 year old female admitted as a transfer from [facility] 11/01 for intermediate care after surgery 10/10 for colovesicular fistula repair and left ureteral stenting, NSTEMI, wound dehiscence, temporarily with wound vac, now in intermediate for close medical supervision of her resolving acute medical problems as well as PT/OT for deconditioning. PLAN * Deconditioning: PT/OT eval and treat. * Surgical Wound Dehiscence: Wound vac for a short time but now wound closing with dressing changes, managed per surgery. Amoxicillin/clavulanate, levofloxacin courses completed for concern of wound infection in [place] with Pseudomonas and other organisms. * Hypomagnesemia- s/p IV mg, recheck again tonight and in am. Didn't maintain levels back on po Mg, so concerned about malabsorption. Discussed with Devora in Pharmacy and she recommended ER magnesium chloride or L-lactate, an extended release magnesium lactate. Neither are on formulary so she will look for other options. * Colovesicular Fistula Repair, Diverticulitis, Recurrent UTI: S/P left ureteral stenting and ileostomy. Stoma cares per protocol. Surgery following. Urology (Dr. Hankins) remains involved in her care. Amoxicillin/clavulanate, levofloxacin courses completed. * Abdominal Pain: Improving with [place], will follow today. RN to discuss with surgery. If concerns arise or worsening symptoms check CT * Heart Murmur: Request echo from [facility]. Is supposed to follow-up with corrective therapy aide teacher there in 6 months. * F/E/N: Regular * Prophylaxis: SCD * Code Status: Full * Dispo: Skilled care for above issues. Continue present management, including IV mag today. Will recheck levels tonight and in am and discuss again with pharmacy. Will be here until a solution is found for her hypomagnesemia. RESOLVING ISSUES * NSTEMI: Attributed to demand ischemia. Request echo from [facility]. Is supposed to follow-up with corrective therapy aide teacher there in 6 weeks (Dr. Duarte, [facility]). Has not been taking any anti-platelet agent. Also not noted to be on any anti-lipid therapy after discharge from [place]. Added aspirin 11/09. Statin therapy also started. CHRONIC ISSUES * GERD: Pepcid * Hypothyroidism: Levothyroxine * COPD: Fluticasone/salmeterol * Gout: Allopurinol * Pain: Hydrocodone/acetaminophen * Constipation: Bowel regimen * HTN: Losartan, metoprolol * Insomnia: Zolpidem * CKD Stage III: Stable. Avoid nephrotoxic agents. Jimmy Reyna MD November 17, 2016 15:44
--- NOTE | 2016-11-17 17:38 | NUR ---
Pt indep in room, changes Stoma appliance indep. calls for assist appropriately. Daughter at bedside. Denies needs at this time.
--- NOTE | 2016-11-17 19:00 | NUR ---
Pt ambulating independently in halls at shift change. Denies needs.
[2016-11-17] MEDS: ATORVASTATIN 40 MG (LIPITOR) TABLET PO SCH (20:37)
[2016-11-17] MEDS: NYSTATIN CREAM (MYCOSTATIN) 30 GM TUBE TOP PRN (20:39)
[2016-11-17] MEDS: ZOLPIDEM 5 MG (AMBIEN) TAB PO PRN (22:28)
[2016-11-18] MEDS: LEVOTHYROXINE 50 MCG (LEVOTHROID) TABLET PO SCH (05:55)
--- NOTE | 2016-11-18 05:56 | NUR ---
Uneventful shift. Pt rests well. Completes all stoma care independently. SL intact. Resp even and non labored on RA.
[2016-11-18 07:30] VITALS: BP 103/41
[2016-11-18] MEDS: CHOLECALCIFEROL 1000 INT UNITS (VITAMIN D3) TABLET PO SCH (08:17)
[2016-11-18] MEDS: OMEGA-3 ACID ETHYL ESTERS 1 GM (LOVAZA) CAPSULE PO SCH (08:17)
[2016-11-18] MEDS: ACIDOPHILUS/LACTOBACILLUS SPOROGENES 1 TABLET PO SCH ×2 (08:17→20:33)
[2016-11-18] MEDS: LOSARTAN 100 MG (COZAAR) TABLET PO SCH (08:17)
[2016-11-18] MEDS: CALCIUM CITRATE/VITAMIN D3 315MG/250IU (CALCITRATE +D) TABLET PO SCH (08:17)
[2016-11-18] MEDS: ASPIRIN 81 MG CHEW (LOW-DOSE) PO SCH (08:17)
[2016-11-18] MEDS: GLUCOSAMINE/CHONDROITIN 500MG-400MG CAPSULE PO SCH ×2 (08:17→20:33)
[2016-11-18] MEDS: ALLOPURINOL 300 MG (ZYLOPRIM) TAB PO SCH (08:17)
[2016-11-18] MEDS: meTOprolol TARTRATE 25 MG (LOPRESSOR) TABLET PO SCH ×2 (08:18→17:50)
[2016-11-18] MEDS: FERROUS SULFATE 325 MG (IRON) TABLET PO SCH ×2 (08:18→17:51)
[2016-11-18] MEDS: FAMOTIDINE 20 MG (PEPCID) TABLET PO SCH ×2 (08:18→20:33)
[2016-11-18] MEDS: MULTIVITAMIN W/MINERALS (THERAGRAN M) TABLET PO SCH (08:18)
[2016-11-18] MEDS: MAGNESIUM OXIDE 400 MG (MAG-OX) TAB PO SCH ×2 (08:18→20:33)
[2016-11-18] MEDS: FLUTICASONE/SALMETEROL HFA 230/21 MCG (ADVAIR) COMMON CANNISTER INH SCH ×2 (08:46→20:06)
--- NOTE | 2016-11-18 09:18 | NUR ---
Date Assessed: 11-18-16 Nutrition Follow Up: Pt. doing well, she has been DC'd from PT and OT after meeting goals. She remained hospitalized due to hypomagnesemia, which was WNL this morning at 1.6. She is eating well, 75-100% of low-fiber diet. Weight today: N/A--has still not been weighed since admission Labs: magnesium 1.6 1. Continue low fiber diet per surgeons recommendations, and gradually advance to high fiber diet when given the okay by surgery. Pt. has already been educated on her low fiber diet and given educational materials.
--- NOTE | 2016-11-18 14:20 | NUR ---
MULTIDISCIPLINARY MTG/DR. HUFF: Pt. admitted to [facility]. Pt. was receiving PT/OT. PT has discharged Pt. from services. Pt. continues to receive wound care. Pt. wound and deconditioning are improving. Pt. magnesium has been dropping and she has received IV and PO magnesium. Plan for Pt. to go home with [facility] upon discharge. No other discharge needs identified at this time.
--- NOTE | 2016-11-18 18:03 | NUR ---
Uneventful dayshift. Patient independent in room and halls. Denies pain or distress. Emptying ileostomy bag and burt bag without difficulty. Stool noted to be green and semi-formed. Tolerates dressing change to abdomen well. Call light in reach.
--- NOTE | 2016-11-18 20:05 | NUR ---
Pt is awake sitting in recliner, resting comfortably at this time, on RA; SPO2 100%, breath sounds clear.
[2016-11-18] MEDS: ATORVASTATIN 40 MG (LIPITOR) TABLET PO SCH (21:00)
[2016-11-18] MEDS: ZOLPIDEM 5 MG (AMBIEN) TAB PO PRN (22:20)
[2016-11-18] MEDS: HYDROcodone/APAP 5 MG/325 MG (NORCO) TAB PO PRN (22:21)
[2016-11-19] MEDS: LEVOTHYROXINE 50 MCG (LEVOTHROID) TABLET PO SCH (06:17)
--- NOTE | 2016-11-19 06:19 | NUR ---
Resting soundly throughout night, states awakened at midnight to empty bag "full of air" and again at 0500. Takes morning synthroid and returns to resting in bed.
[2016-11-19 07:36] VITALS: BP 100/44
[2016-11-19] MEDS: FLUTICASONE/SALMETEROL HFA 230/21 MCG (ADVAIR) COMMON CANNISTER INH SCH ×2 (08:08→19:58)
[2016-11-19] MEDS: ACIDOPHILUS/LACTOBACILLUS SPOROGENES 1 TABLET PO SCH ×2 (08:14→20:36)
[2016-11-19] MEDS: OMEGA-3 ACID ETHYL ESTERS 1 GM (LOVAZA) CAPSULE PO SCH (08:14)
[2016-11-19] MEDS: LOSARTAN 100 MG (COZAAR) TABLET PO SCH (08:14)
[2016-11-19] MEDS: MULTIVITAMIN W/MINERALS (THERAGRAN M) TABLET PO SCH (08:14)
[2016-11-19] MEDS: GLUCOSAMINE/CHONDROITIN 500MG-400MG CAPSULE PO SCH ×2 (08:14→20:36)
[2016-11-19] MEDS: meTOprolol TARTRATE 25 MG (LOPRESSOR) TABLET PO SCH ×2 (08:14→18:06)
[2016-11-19] MEDS: MAGNESIUM OXIDE 400 MG (MAG-OX) TAB PO SCH ×2 (08:14→20:36)
[2016-11-19] MEDS: CALCIUM CITRATE/VITAMIN D3 315MG/250IU (CALCITRATE +D) TABLET PO SCH (08:14)
[2016-11-19] MEDS: ASPIRIN 81 MG CHEW (LOW-DOSE) PO SCH (08:14)
[2016-11-19] MEDS: CHOLECALCIFEROL 1000 INT UNITS (VITAMIN D3) TABLET PO SCH (08:14)
[2016-11-19] MEDS: ALLOPURINOL 300 MG (ZYLOPRIM) TAB PO SCH (08:15)
[2016-11-19] MEDS: FERROUS SULFATE 325 MG (IRON) TABLET PO SCH ×2 (08:15→18:06)
[2016-11-19] MEDS: FAMOTIDINE 20 MG (PEPCID) TABLET PO SCH ×2 (08:15→20:36)
[2016-11-19] MEDS: ATORVASTATIN 40 MG (LIPITOR) TABLET PO SCH (20:36)
[2016-11-19] MEDS: ZOLPIDEM 5 MG (AMBIEN) TAB PO PRN (22:49)
[2016-11-19] MEDS: HYDROcodone/APAP 5 MG/325 MG (NORCO) TAB PO PRN (22:49)
[2016-11-19] MEDS ORDERED: NS ONE (22:53)
[2016-11-20] MEDS: LEVOTHYROXINE 50 MCG (LEVOTHROID) TABLET PO SCH (06:47)
[2016-11-20 08:00] VITALS: BP 131/68
[2016-11-20] MEDS: OMEGA-3 ACID ETHYL ESTERS 1 GM (LOVAZA) CAPSULE PO SCH (08:30)
[2016-11-20] MEDS: ASPIRIN 81 MG CHEW (LOW-DOSE) PO SCH (08:30)
[2016-11-20] MEDS: FERROUS SULFATE 325 MG (IRON) TABLET PO SCH (08:30)
[2016-11-20] MEDS: LOSARTAN 100 MG (COZAAR) TABLET PO SCH (08:30)
[2016-11-20] MEDS: ACIDOPHILUS/LACTOBACILLUS SPOROGENES 1 TABLET PO SCH (08:31)
[2016-11-20] MEDS: FAMOTIDINE 20 MG (PEPCID) TABLET PO SCH (08:31)
[2016-11-20] MEDS: CALCIUM CITRATE/VITAMIN D3 315MG/250IU (CALCITRATE +D) TABLET PO SCH (08:31)
[2016-11-20] MEDS: GLUCOSAMINE/CHONDROITIN 500MG-400MG CAPSULE PO SCH (08:31)
[2016-11-20] MEDS: CHOLECALCIFEROL 1000 INT UNITS (VITAMIN D3) TABLET PO SCH (08:31)
[2016-11-20] MEDS: MULTIVITAMIN W/MINERALS (THERAGRAN M) TABLET PO SCH (08:31)
[2016-11-20] MEDS: meTOprolol TARTRATE 25 MG (LOPRESSOR) TABLET PO SCH (08:31)
[2016-11-20] MEDS: ALLOPURINOL 300 MG (ZYLOPRIM) TAB PO SCH (08:31)
[2016-11-20] MEDS: MAGNESIUM OXIDE 400 MG (MAG-OX) TAB PO SCH (08:31)
--- NOTE | 2016-11-20 08:46 | Progress Note (E) ---
Progress Note She hasn't had any leakage from her stoma appliance for four days. It has helped to "burp" the bag periodically to prevent over-distension. I feel that she can go home. I will see her back next week in clinic to recheck the wound. Continue BID packing with saline-soaked guaze by home health or a family member. She should avoid lifting more than 20lbs. Continue with low-fiber diet. Follow-up with Dr. Hankins as directed. JOSELYN OLIVARES MD November 20, 2016 08:46
[2016-11-20] MEDS: FLUTICASONE/SALMETEROL HFA 230/21 MCG (ADVAIR) COMMON CANNISTER INH SCH (09:08)
[2016-11-20 09:48] LABS: BASOPHILS % (AUTO) 0 % (0-2); EOSINOPHILS # (AUTO) 0.5 10^3uL; EOSINOPHILS % (AUTO) 6 % (0-4); LYMPHOCYTES # (AUTO) 1.9 X10^3; MEAN CORPUSCULAR HEMOGLOBIN 29.3 PG (26.0-34.0); MEAN CORPUSCULAR VOLUME 94 FL (80-100); MEAN PLATELET VOLUME 10.1 FL (6.0-9.5); MONOCYTES # (AUTO) 0.5 X10^3; MONOCYTES % (AUTO) 6 % (3-11); NEUTROPHILS % (AUTO) 62 % (51-67); PLATELET COUNT 184 10^3uL (150-450); WHITE BLOOD COUNT 7.95 10^3uL (4.0-11.0)
[2016-11-20 10:21] LABS: MEAN CORPUSCULAR HGB CONC 31.1 g/dL (31.0-37.0)
--- NOTE | 2016-11-20 11:01 | NUR ---
Pt. is ready to discharge home and is still interested in home health services through [facility]. Edith with [facility] was here to visit with Pt. this morning. Information provided to Edith about Pt. wound care needs. HANY will fax orders to [facility] ([phone]) at discharge.
[2016-11-20 11:02] LABS: ALBUMIN 3.2 g/dL (3.4-5.0); ANION GAP 16.9 MEQ/L (3-15)
[2016-11-20 11:08] LABS: MAGNESIUM* 1.1 mg/dL (1.6-2.3)
[2016-11-20] MEDS ORDERED: SODIUM CHLORIDE 50 ML IV ONE (11:19)
[2016-11-20] MEDS ORDERED: SODIUM CHLORIDE FLUSH 10 ML ONE (11:19)
[2016-11-20] MEDS: MAGNESIUM 1 GM/100 ML IVPB 100 ML IV SCH ×2 (11:34→12:32)
[2016-11-20] MEDS ORDERED: ASP81CT PO (14:42)
[2016-11-20] MEDS ORDERED: FERR325T5 PO (14:42)
[2016-11-20] MEDS ORDERED: ATOR40TA2 PO (14:42)
[2016-11-20] MEDS ORDERED: HYDR-3702 PO (14:42)
[2016-11-20] MEDS ORDERED: MGX400T PO (14:42)
--- NOTE | 2016-11-20 14:49 | Discharge Instructions (E) ---
Discharge Instructions Instructions * You were evaluated and treated in intermediate after surgery. Your strength and endurance improved. * Home health will be continued to assist with wound dressing changes. * For your heart health, magnesium, aspirin, and atorvastatin have been prescribed. Review the provided handouts for details. Follow-up with your communications systems engineer as directed. * You had low magnesium level. The cause of this is uncertain but you were given IV magnesium supplement in hospital and you will benefit from increased oral supplement at discharge. Have your magnesium level checked again at your primary care doctor's office on Friday. * To help with anemia, you have been prescribed iron. Have your complete blood count checked at your primary care doctor's office in about 4-6 weeks. DRESSING CHANGE INSTRUCTIONS * Change twice daily. * Saline-soaked gauze, packed into wound, then covered with gauze or ABD pad. Activity Instructions No lifting more than 20 pounds. No strenuous activity. Doctor's Appointment Follow-up with your providers as directed. Discharge Diet: CASSIDY Díaz MD November 20, 2016 14:49
--- NOTE | 2016-11-20 15:47 | NUR ---
Discharge instructions reviewed with patient. Verbalizes understanding. Copies signed and given to patient. [facility] in room for med rec. 20g IV dc'd from [facility]- tip intact, site without redness/swelling. Awaiting family arrival for discharge.
--- NOTE | 2016-11-20 17:05 | NUR ---
Pt dismissed to home via ambulation accompanied by this nurse and her . Belongings sent with patient. This nurse helped load belongings into car.
--- NOTE | 2016-11-20 18:50 | Discharge Summary (E) ---
Discharge Summary (E) Admit Date/Time Nov 01, 2016 at 11:21 Discharge Date/Time November 20, 2016 at 17:05 Admitting Provider Shantanu Acosta DO Primary Care Provider Justin Mcgee MD Attending Provider Shantanu Acosta Michael MD Consulting Provider History and Present Illness Karol Valladares is a 66 year old female admitted as a transfer from [facility] 11/01 for senior care care after surgery 10/10 for colovesicular fistula repair and left ureteral stenting, NSTEMI, wound dehiscence, temporarily with wound vac, now in senior care for close medical supervision of her resolving acute medical problems as well as PT/OT for deconditioning. During her senior care stay she had much improvement in her surgical wound. It is healing well to secondary intention and at discharge she will have home health to help with packing and dressing. PT/OT was helpful in restoring her strength and endurance. There was some concern by surgery that she was having leak around her stoma but these symptoms improved. She had follow-up with Dr. Hankins regarding bladder leak. Per cystogram, she has a persistent leak. He recommend her catheter be changed and she will return to clinic for further urological follow-up. Other details of her senior care course are as follows : Hospital Course and Treatment * Deconditioning: Improved. PT/OT eval and treat. * Surgical Wound Dehiscence: Wound vac for a short time but on arrival here, vac was removed and wound improved with packing and regular dressing changes. Amoxicillin/clavulanate, levofloxacin courses completed for concern of wound infection in [place] with Pseudomonas and other organisms. At discharge, home health to help with further wound/dressing changes. Follow-up in surgery next week for wound check. * Colovesicular Fistula Repair, Diverticulitis, Recurrent UTI: S/P left ureteral stenting and ileostomy. Stoma cares per protocol. Surgery following. Urology (Dr. Hankins) remains involved in her care. Amoxicillin/clavulanate, levofloxacin courses completed. Cystogram results as noted showing persistent leak but Dr. Hankins is aware and this will be followed up in his clinic. * Abdominal Pain: Improving. Roundup. None needed at discharge. * Heart Murmur: Observed. Follow-up with home health attendant scheduled. * Iron deficiency anemia: Hgb bob 7.9. Iron profile consistent with deficiency. Iron supplement started. Follow-up CBC in 4-6 weeks. * Hypomagnesemia: Persistent problem. Due to ileostomy most likely. Was asymptomatic. Got IV supplement. Bob was 1.1 on day of discharge. She was given 2 gram IV magnesium before discharge and was sent home on BID magnesium oxide. Repeat magnesium on Friday at PCP's clinic. * F/E/N: Regular * Prophylaxis: SCD * Code Status: Full * Dispo: Skilled care for above issues. RESOLVING ISSUES * NSTEMI: Attributed to demand ischemia. Is supposed to follow-up with home health attendant there in 6 weeks (Dr. Duarte, [facility]). Had not been taking any anti-platelet agent. Also not noted to be on any anti-lipid therapy after discharge from [place]. Added aspirin 11/09. Added atorvastatin based on lipid profile. CHRONIC ISSUES * GERD: Pantoprazole * Hypothyroidism: Levothyroxine * COPD: Fluticasone/salmeterol * Gout: Allopurinol * Pain: Hydrocodone/acetaminophen * Constipation: Bowel regimen * HTN: Losartan, metoprolol * Insomnia: Zolpidem * CKD Stage III: Reportedly stable. Avoid nephrotoxic agents. Discharge Physicial Exam General Vital Signs Date Time Temp Pulse Resp B/P Pulse Ox O2 Delivery O2 Flow Rate FiO2 11/20/16 08:00 96.8 81 20 131/68 95 Room air 11/19/16 07:36 0.00 GEN: Awake, interactive, oriented. NAD at present. HEENT: EOMI, clear sclerae, moist oral mucosa. CV: Regular with prominent III/ systolic murmur, early, crescendo, loudest at left upper sternal border. PULM: CTA B with no R/R/W. ABD: Soft, NT/ND with active bowel sounds. Ileostomy intact. Abdominal wound continues to decrease in size. Granular wound bed. No discharge or drainage. Deeper tunnel noted inferiorly, also improving. EXTR: Trace ankle edema. INTEG: Age related changes. Mild pallor. NEURO: No focal motor neuro deficit. Laboratory/Radiology Data Laboratory Results-14 Days 11/10/16 05:20: Albumin 2.7L, Anion Gap 14.1, Basophils # (Auto) 0.1, Basophils (%) (Auto) 1, Blood Urea Nitrogen 25#H, Calcium Level 9.5#, Carbon Dioxide Level 21L, Chloride Level 111H, Cholesterol Level 130, Cholesterol/HDL Ratio 5.2H, Creatinine 1.10, Eosinophils # (Auto) 0.4, Eosinophils (%) (Auto) 5H, Estimat Glomerular Filtration Rate 59.8, Estimated GFR (Non- 49.4, Glucose Level 90#, HDL Cholesterol 25L, Hematocrit 26.90L, Hemoglobin 8.5L, LDL Cholesterol, Calculated 66, Lymphocytes # (Auto) 2.5, Lymphocytes (%) (Auto) 30 , Mean Corpuscular Hemoglobin 28.6, Mean Corpuscular Hemoglobin Concent 31.6, Mean Corpuscular Volume 91, Mean Platelet Volume 10.5H, Monocytes # (Auto) 0.7, Monocytes (%) (Auto) 8, Neutrophils # (Auto) 4.7, Neutrophils (%) (Auto) 56, Phosphorus Level 4.9#, Platelet Count 139#L, Potassium Level 5.0#, Red Blood Count 2.97L, Red Cell Distribution Width 15.2, Sodium Level 142#, Triglycerides Level 197H, VLDL Cholesterol, Calculated 39, White Blood Count 8.47 11/11/16 14:05: Urine Bacteria 1+, Urine Bilirubin Negative, Urine Blood 2+H, Urine Clarity Slightly cloudy, Urine Collection Type Catheter, Urine Color Yellow, Urine Glucose (UA) Negative, Urine Hyaline Casts 2+, Urine Ketones Negative, Urine Leukocyte Esterase 2+H, Urine Microscopic RBC 10-20H, Urine Nitrite Negative, Urine Protein Negative, Urine Specific [place] <=1.005, Urine Squamous Epithelial Cells 0-2, Urine Urobilinogen 0.2, Urine WBC 20-50H, Urine pH 5.5, Volume Urine Centrifuged 12 ml 11/12/16 05:40: Magnesium Level 1.1#*L 11/12/16 08:50: Albumin 3.1L, Anion Gap 16.1H, Basophils # (Auto) 0.1, Basophils (%) (Auto) 1, Blood Urea Nitrogen 23H, Calcium Level 9.5, Carbon Dioxide Level 21L, Chloride Level 109H, Creatinine 1.08, Eosinophils # (Auto) 0.6, Eosinophils (%) (Auto) 7H , Estimat Glomerular Filtration Rate 61.0, Estimated GFR (Non- 50.5, Glucose Level 104, Hematocrit 29.20L, Hemoglobin 9.1L, Lymphocytes # (Auto ) 2.2, Lymphocytes (%) (Auto) 24, Mean Corpuscular Hemoglobin 28.4, Mean Corpuscular Hemoglobin Concent 31.2, Mean Corpuscular Volume 91, Mean Platelet Volume 10.5H, Monocytes # (Auto) 0.5, Monocytes (%) (Auto) 6, Neutrophils # ( Auto) 5.6, Neutrophils (%) (Auto) 63, Platelet Count 153, Potassium Level 4.9, Red Blood Count 3.20L, Red Cell Distribution Width 15.9H, Sodium Level 141, White Blood Count 8.93, Alanine Aminotransferase (ALT/SGPT) 22L, Albumin/ Globulin Ratio 0.939L, Alkaline Phosphatase 88, Aspartate Amino Transf (AST/SGOT ) 17, BUN/Creatinine Ratio 21H, Calcium/Ionized Calcium Ratio 4.4, Calculated Osmolality 277L, Free Thyroxine (T4) Calculated 1.37, Thyroid Stimulating Hormone (TSH) 6.95H, Total Bilirubin 0.5, Total Protein 6.4 11/12/16 18:03: Magnesium Level 1.4#L 11/13/16 05:25: Magnesium Level 1.8#, Alanine Aminotransferase (ALT/SGPT) 28L, Albumin 2.8L, Albumin/Globulin Ratio 0.848L, Alkaline Phosphatase 82, Anion Gap 13.9, Aspartate Amino Transf (AST/SGOT) 17, BUN/Creatinine Ratio 21H, Blood Urea Nitrogen 26H, Calcium Level 8.8, Calcium/Ionized Calcium Ratio 4.2, Calculated Osmolality 274L, Carbon Dioxide Level 20L, Chloride Level 110H, Creatinine 1.23H , Estimat Glomerular Filtration Rate 52.5, Estimated GFR (Non- 43.4, Glucose Level 89, Potassium Level 5.1, Sodium Level 140, Total Bilirubin 0.4, Total Protein 6.1L 11/14/16 05:35: Magnesium Level 1.5L, Anion Gap 13.3, BUN/Creatinine Ratio 21H, Blood Urea Nitrogen 24H, Calcium Level 9.2, Carbon Dioxide Level 21L, Chloride Level 110H, Creatinine 1.12, Estimat Glomerular Filtration Rate 58.5, Estimated GFR (Non- 48.4, Glucose Level 91, Potassium Level 4.9, Sodium Level 140, Basophils # (Auto) 0.1, Basophils (%) (Auto) 1, Eosinophils # (Auto) 0.5, Eosinophils (%) (Auto) 6H, Hematocrit 25.40L, Hemoglobin 7.9L, Lymphocytes # ( Auto) 2.1, Lymphocytes (%) (Auto) 25, Mean Corpuscular Hemoglobin 28.5, Mean Corpuscular Hemoglobin Concent 31.1, Mean Corpuscular Volume 92, Mean Platelet Volume 10.5H, Monocytes # (Auto) 0.7, Monocytes (%) (Auto) 8, Neutrophils # ( Auto) 5.2, Neutrophils (%) (Auto) 61, Platelet Count 168, Red Blood Count 2.77L , Red Cell Distribution Width 15.9H, Smear Scan Yes, White Blood Count 8.54 11/15/16 10:57: Magnesium Level 1.2*L, Phosphorus Level 4.2 11/16/16 07:20: Magnesium Level 1.6# 11/17/16 08:45: Magnesium Level 1.3*L 11/17/16 18:26: Magnesium Level 1.8# 11/18/16 05:54: Magnesium Level 1.6 11/20/16 09:25: Albumin 3.2L, Anion Gap 16.9H, Basophils # (Auto) 0.0, Basophils (%) (Auto) 0, Blood Urea Nitrogen 24H, Calcium Level 9.3, Carbon Dioxide Level 21L, Chloride Level 110H, Creatinine 1.02, Eosinophils # (Auto) 0.5, Eosinophils (%) (Auto) 6H , Estimat Glomerular Filtration Rate 65.2, Estimated GFR (Non- 53.9, Glucose Level 108, Hematocrit 27.00L, Hemoglobin 8.4L, Lymphocytes # (Auto ) 1.9, Lymphocytes (%) (Auto) 24, Magnesium Level 1.1#*L, Mean Corpuscular Hemoglobin 29.3, Mean Corpuscular Hemoglobin Concent 31.1, Mean Corpuscular Volume 94, Mean Platelet Volume 10.1H, Monocytes # (Auto) 0.5, Monocytes (%) ( Auto) 6, Neutrophils # (Auto) 5.0, Neutrophils (%) (Auto) 62, Phosphorus Level 3.5, Platelet Count 184, Potassium Level 4.6, Red Blood Count 2.87L, Red Cell Distribution Width 16.6H, Smear Scan Yes, Sodium Level 144, White Blood Count 7.95 IMAGING 11/08/16 CYSTOGRAPHY INDICATION: Vesicointestinal fistula. FINDINGS: The commercial escrow officer film of the pelvis shows a ureteral stent to be present with the pigtail projected over the urinary bladder region. An ostomy is seen in the right lower quadrant. A Quiñones balloon catheter is in place. Omnipaque 240 was sterilely instilled into the urinary bladder and filling was observed with fluoroscopy. Multiple spot films were done with overhead radiographs. Early filling showed no significant abnormality. At approximately 150 cc, there was left vesicoureteral reflux into the left pelvicalyceal system. At about 200 cc, irregularity of the left lateral wall of the urinary bladder was noted with an abnormal contrast collection at the left aspect of the urinary bladder. There is a thin communication between the urinary bladder and the extraluminal contrast collection. The contrast collection occupies an area of about 2.6 cm. At 250 cc, no more contrast was drip into the urinary bladder. The post drainage radiograph demonstrated persistent localized extraluminal contrast accumulation. IMPRESSION: 1. Extravasated urinary bladder contrast through a thin tract to the left para-vesicle region. This may be a localized accumulation within the bowel wall that did not progress intraluminally in the bowel or represent a localized extraluminal peritoneal collection. 2. The left ureteral stent is in good position. Discharge Disposition Discharged home with home health. Instructions * You were evaluated and treated in senior care after surgery. Your strength and endurance improved. * Home health will be continued to assist with wound dressing changes. * For your heart health, magnesium, aspirin, and atorvastatin have been prescribed. Review the provided handouts for details. Follow-up with your home health attendant as directed. * You had low magnesium level. The cause of this is uncertain but you were given IV magnesium supplement in hospital and you will benefit from increased oral supplement at discharge. Have your magnesium level checked again at your primary care doctor's office on Friday. * To help with anemia, you have been prescribed iron. Have your complete blood count checked at your primary care doctor's office in about 4-6 weeks. DRESSING CHANGE INSTRUCTIONS * Change twice daily. * Saline-soaked gauze, packed into wound, then covered with gauze or ABD pad. Activity Instructions No lifting more than 20 pounds. No strenuous activity. Appointments Follow-up with your providers as directed. Discharge Diet: Regular Discharge Medications New Medications: Aspirin (Baby Aspirin) 81 Mg Tab.chew 81 MG PO DAILY #0 Ref 0 TAB Atorvastatin (Lipitor) 40 Mg Tablet 40 MG PO HS #30 Ref 0 TAB Ferrous Sulfate (Ferrous Sulfate) 325 Mg Tablet.dr 325 MG PO BID WITH MEALS #60 Ref 0 TAB Changed Medications: Magnesium Oxide (Magnesium Oxide) 400 Mg Tablet 400 MG PO BID #0 Ref 0 TAB (Changed from: DAILY; Refills: ) Continued Medications: Alendronate Sodium (Fosamax) 70 Mg Tablet 70 MG PO Every Friday Allopurinol (Allopurinol) 300 Mg Tablet 300 MG PO DAILY TAB Budesonide/Formoterol Fumarate (Symbicort 160-4.5 mcg Inhaler) 10.2 Gm Hfa.aer.ad 2 PUFF IH BID INHALER Calcium Citrate/Vitamin D3 (Citracal + D Caplet) 1 Each Tablet 1 EACH PO DAILY Cholecalciferol (Vitamin D3) (Vitamin D3) 1,000 Unit Tab 1000 UNIT PO DAILY Vitamin/Mineral Supplemnt Ref 0 TAB Gluc 2KCL/Chondr/[place] Hy/Hy Ac (Glucosamine & Chondroitin Cap) 1 Each Capsule 1 EACH PO BID Hydrocodone/Acetaminophen (Roundup 5mg/325mg) 1 Each Tablet 1 TAB PO Q4H PRN PAIN #15 Ref 0 TAB (This prescription has been renewed) Lactobacillus Combination No.4 (Probiotic) 1 Each Capsule 1 EACH PO BID CAP Levothyroxine Sodium (Levothyroxine Sodium) 50 Mcg Tablet 50 MCG PO DAILY TAB Losartan Potassium (Losartan Potassium) 100 Mg Tablet 100 MG PO DAILY TAB Metoprolol Tartrate (Metoprolol Tartrate) 25 Mg Tablet 25 MG PO BID WITH MEALS TAB Multivitamin (Multi-Day Vitamins) 1 Each Tablet 1 TAB PO DAILY TAB Nitroglycerin (Nitroquick) 0.4 Mg Tab.subl 0.4 MG SL NEEDED TAB Om-3/Dha/Epa/Fish Oil/Vit D3 (Fish Oil + Vitamin D-3 Softgel) 1 Each Capsule 1 EACH PO DAILY Pantoprazole Sod (Protonix Tab) 40 Mg Tab 40 MG PO DAILY TAB Phenol/Sodium Phenolate (Phenaseptic Liquid) 180 Ml Mouthwash Unknown Dose TOP NEEDED Simethicone (Simethicone) 80 Mg Tab.chew 80 MG PO NEEDED TAB.CHEW Discontinued Medications: Amoxicillin/Clavulanate Potassium (Augmentin 875mg/125mg) 1 Each Tablet 1 TAB PO BID Infection #14 Ref 0 TAB Levofloxacin (Levaquin) 750 Mg Tablet 750 MG PO DAILY Infection Days 7 Ref 0 TAB Naproxen (Naproxen) 250 Mg Tablet 2 TAB PO Q4H PRN PAIN Ref 0 TAB Follow up Follow up Referrals: Family Practice - 11/25/16 with Justin Mcgee Md Home Health Service - 11/21/16 with [facility] Nephrology - 12/02/[address] Hankins Physician Referral - 12/13/16 with Hiral Duarte MD Surgical - 11/28/16 with David Cornell Md New Orders: CBC WITH AUTOMATED DIFF* - Within 4-6 weeks MAGNESIUM - 11/25/16 RENAL PROFILE - 11/25/16 Discharge Diagnosis See list above. Problems: Copies to: End of Report . CASSIDY HUFF MD November 20, 2016 18:50
== END 2016-11-20 17:05 | disposition home health service (06) | DRG 919 ==
LOC: MED/SURG 11:21
DX: T81.31XA Disruption of external operation (surgical) wound, not elsewhere classified, initial encounter (principal); I21.4 Non-ST elevation (NSTEMI) myocardial infarction; K94.13 Enterostomy malfunction; N99.89 Other postprocedural complications and disorders of genitourinary system; E83.42 Hypomagnesemia; D50.0 Iron deficiency anemia secondary to blood loss (chronic); E86.0 Dehydration; R19.7 Diarrhea, unspecified; I12.9 Hypertensive chronic kidney disease with stage 1 through stage 4 chronic kidney disease, or unspecified chronic kidney disease; N18.3 Chronic kidney disease, stage 3 (moderate); E66.01 Morbid (severe) obesity due to excess calories; Z68.37 Body mass index [BMI] 37.0-37.9, adult; Y83.3 Surgical operation with formation of external stoma as the cause of abnormal reaction of the patient, or of later complication, without mention of misadventure at the time of the procedure; Y83.6 Removal of other organ (partial) (total) as the cause of abnormal reaction of the patient, or of later complication, without mention of misadventure at the time of the procedure; Y83.8 Other surgical procedures as the cause of abnormal reaction of the patient, or of later complication, without mention of misadventure at the time of the procedure
CPT/HCPCS: 36415; 74430; 80048; 80053; 80061; 80069; 81003; 81015; 83735; 84100; 84439; 84443; 85025; 87088; 94640

== ENCOUNTER → 2016-11-25 | Outpatient (REF) | payer MEDICARE, OTHER ==
[~2016-11-25] MED LIST changes: +AMOX1TAB12 PO; +ASP81CT PO; +ATOR40TA2 PO; +FERR325T5 PO; +HYDR-3702 PO; +LACT1CAP66 PO; +LEVO250T46 PO; +LEVO750T39 PO; +METO25TA60 PO; +MGX400T PO; +NAPR250T34 PO; +NTR.4SL SL; +PANT40TA3 PO; +SMT80CT PO; +[UNRECOGNIZED DRUG - CODE] TOP; +levaquin PO
== END ==
LOC: LAB 10:59
PROVIDERS: ATTEND Family Medicine
DX: E83.42 Hypomagnesemia (principal)
CPT/HCPCS: 84100